=== PATIENT | female | born 1975 | race Caucasian/White ===

== ENCOUNTER 2019-07-12 16:33 | Inpatient (IN) | payer SELFPAY | END 2019-07-15 12:02 | disposition home or self-care (01) | DRG 392 | PROVIDERS: Admitting Provider Internal Medicine; Emergency Provider Family Medicine; Visit Provider Student in an Organized Health Care Education/Training Program | DX: K29.70 Gastritis, unspecified, without bleeding (principal); K21.9 Gastro-esophageal reflux disease without esophagitis; N85.8 Other specified noninflammatory disorders of uterus; I10 Essential (primary) hypertension; D64.9 Anemia, unspecified; K29.80 Duodenitis without bleeding; R00.1 Bradycardia, unspecified; Z87.891 Personal history of nicotine dependence ==

== ENCOUNTER → 2019-08-25 16:45 | Outpatient (BNVA) | payer SELFPAY | PROVIDERS: PCP Nurse Practitioner; Visit Provider Obstetrics & Gynecology Female Pelvic Medicine and Reconstructive Surgery | DX: N93.9 Abnormal uterine and vaginal bleeding, unspecified (principal); Z12.4 Encounter for screening for malignant neoplasm of cervix; D25.9 Leiomyoma of uterus, unspecified; R19.00 Intra-abdominal and pelvic swelling, mass and lump, unspecified site; E66.01 Morbid (severe) obesity due to excess calories; Z72.0 Tobacco use; Z86.2 Personal history of diseases of the blood and blood-forming organs and certain disorders involving the immune mechanism | CPT/HCPCS: 82728; 83540; 83550; 85025; 87491; 87591; 88175 ==

== ENCOUNTER → 2019-09-04 09:01 | Outpatient (BNVA) | payer SELFPAY | PROVIDERS: PCP Nurse Practitioner; Visit Provider Obstetrics & Gynecology Female Pelvic Medicine and Reconstructive Surgery | DX: D25.9 Leiomyoma of uterus, unspecified (principal); N83.8 Other noninflammatory disorders of ovary, fallopian tube and broad ligament | CPT/HCPCS: 76830; 76856; 87491; 87591 ==

== ENCOUNTER → 2019-09-05 09:07 | Outpatient (BNVA) | payer SELFPAY | PROVIDERS: PCP Nurse Practitioner; Visit Provider Obstetrics & Gynecology Female Pelvic Medicine and Reconstructive Surgery | DX: N93.9 Abnormal uterine and vaginal bleeding, unspecified (principal) | CPT/HCPCS: 88305 ==

== ENCOUNTER 2019-09-12 08:27 | Outpatient (CLI) | payer SELFPAY ==
--- NOTE | 2019-09-12 08:45 | MR_ITS ---
WS: [id number] MRI PELVIS NONCONTRAST and contrast TECHNIQUE: Axial T1, axial T2 fat sat, coronal T1, coronal STIR, sagittal T2 fat sat, sagittal T1, an d sagittal T2 fat sat. Postgadolinium imaging with fat saturation technique. CLINICAL INFORMATION: Look for endometriosis COMPARISON: None. FINDINGS: Markedly enlarged fibroid uterus with multiple heterogeneous fibroids. Uterine configuration is antev erted. Uterus measures approximately 9.6 x 11.5 x 16.7 CM. Multiple enhancing submucosal fibroids wit h heterogeneous enhancement. Largest fibroid measures approximately 6.9 x 6.4 x 6.0 cm along the midl ine uterine fundus. Multiple additional eccentric fibroids the second largest measuring 5.3 x 5.1 x 5 .7 CM. Multiple additional smaller peripheral submucosal fibroids approximately 4-5 in number. Endome trial canal appears displaced left to right along the periphery of the large midline uterine fibroid. Soft tissue thickening and fluid along the internal cervical loss and cervical canal. Recommend hyste roscopy if this has not been performed previously. Distal coccyx and sacrum are normal in appearance. No inguinal lymphadenopathy. No pelvic lymphadenop athy. Small amount of free fluid in the cul-de-sac. IMPRESSION: 1. Markedly enlarged heterogeneously enhancing fibroid uterus measuring 9.6 x 11.5 x 16.7 CM 2. Largest fibroid is midline with left to right displacement of the endometrium. Endometrium appear s peripherally displaced along the largest fibroid which measures 6.9 x 6.4 x 6.0 cm. 3. Second largest fibroid measures 5.3 x 5.1 x 5.7 cm along the dome of the uterus. 4. Additional 4-5 smaller peripheral submucosal fibroids. 5. Fluid and mild thickening along the cervix and internal cervical os. Recommend further evaluation with hysteroscopy if this has not been previously performed. 6. Small amount of free fluid in the cul-de-sac.
== END 2019-09-12 08:28 | disposition home or self-care (01) ==
LOC: RADSHAW 08:28
PROVIDERS: PCP Nurse Practitioner; Visit Provider Obstetrics & Gynecology Female Pelvic Medicine and Reconstructive Surgery
DX: D26.1 Other benign neoplasm of corpus uteri (principal); D25.0 Submucous leiomyoma of uterus; N93.9 Abnormal uterine and vaginal bleeding, unspecified
CPT/HCPCS: 72197; A9579

== ENCOUNTER 2019-10-20 17:57 | Emergency (ER) | payer SELFPAY ==
[2019-10-20 18:07] VITALS: BP 230/108; PULSE 41; RESP 17; TEMP 37; O2SAT 98; BMI 40.3
--- NOTE | 2019-10-20 18:16 | ECG_ITS ---
Measurements Intervals [place] Rate: 39 P: 59 WI: 147 QRS: 70 QRSD: 121 T: 50 QT: 520 QTc: 419 SINUS BRADYCARDIA POSSIBLE RIGHT VENTRICULAR CONDUCTION DELAY [RSR (QR) IN V1/V2] No previous ECG available for comparison Electronically Signed On 10-21-2019 20:22:10 CDT by John García M.D. [id number] f
--- NOTE | 2019-10-20 18:16 | XR_ITS ---
WS: [id number] PORTABLE CHEST HISTORY: cp COMPARISON: 07/12/2019 Lungs are clear and well expanded. No pleural effusion or pneumothorax. Cardiac size: Normal. Mediastinum/Aorta: Normal mediastinum. No osseous abnormality seen. XR/XR chest 1V portable [id number] IMPRESSION: Unremarkable portable chest.
--- NOTE | 2019-10-20 18:20 | CTR_ITS ---
PROCEDURE INFORMATION: Exam: CT Abdomen And Pelvis With Contrast Exam date and time: 10/20/2019 6:38 PM Age: 44 years old Clinical indication: Nausea and vomiting; Prior surgery; Surgery date: 6+ months; Surgery type: Gb, tubal; Patient HX: C/O n/v causing cp; Additional info: Abd pain TECHNIQUE: Imaging protocol: Computed tomography of the abdomen and pelvis with intravenous contrast. Total DLP: 1596.8 mGy-cm Radiation optimization: All CT scans at this facility use at least one of these dose optimization techniques: automated exposure control; mA and/or kV adjustment per patient size (includes targeted exams where dose is matched to clinical indication); or iterative reconstruction. Contrast material: OMNI 300; Contrast volume: 95 ml; Contrast route: 18G; COMPARISON: CT abdomen pelvis w con* [id number] 07/12/2019 5:40 PM FINDINGS: Lungs: Lung bases clear. Liver: Unremarkable. No mass. Gallbladder and bile ducts: Status post cholecystectomy. Pancreas: Normal. No ductal dilation. Spleen: Normal. No splenomegaly. Adrenals: Normal. No mass. Kidneys and ureters: Normal. No hydronephrosis. Stomach and bowel: Diverticulosis coli without evidence for diverticulitis. Nonobstructive bowel pattern. No visible adynamic or reactive ileus. Appendix: No evidence of appendicitis. Intraperitoneal space: No visible free fluid in the pelvis. No visible intraperitoneal ascites. Vasculature: Unremarkable. No abdominal aortic aneurysm. Lymph nodes: No evidence for mesenteric lymphadenitis/lymphadenopathy or mesenteritis/panniculitis. Bladder: Unremarkable as visualized. Reproductive: Again note of a markedly enlarged uterus with multiple uterine leiomyomata. Cystic degeneration of a large fibroid maximum cystic dimensions 63 mm in diameter. Bones/joints: Unremarkable. No acute fracture. Soft tissues: Unremarkable. CT/CT abdomen pelvis w con* [id number] IMPRESSION: 1. No visible CT evidence of acute abdominal or pelvic pathologic process. 2. Uterine leiomyomata to include cystic degeneration of a dominant fibroid as discussed in text above. 3. Diverticulosis coli without evidence for diverticulitis. Radiation Dose CTDIVOL = (mGy): DLP = 1596.8 (mGy-cm)
[2019-10-20 18:27] VITALS: RESP 18; O2SAT 99
[2019-10-20] MEDS: promethazine 25 mg/mL SDV 1 mL IM (18:27)
[2019-10-20] MEDS: HYDROmorphone 1 mg/mL INJ 1 mL IVP ×2 (18:27→18:57)
[2019-10-20] MEDS: sodium chloride 0.9% 1,000 ML 999 ML IV (18:31)
[2019-10-20 18:35] LABS: Basophils # 0.1 10^3/uL (0.0-0.1); Basophils % 0.3 %; Eosinophils % 0.1 %; Hematocrit 43.4 % (37.0-47.0); Lymphocytes # 1.6 10^3/uL (0.8-4.8); Lymphocytes % 11.3 %; Mean Corpuscular HGB Conc 32.3 g/dL (30.0-36.0); Mean Corpuscular Hemoglobin 27.9 pg (28.0-34.0); Mean Corpuscular Volume 86.6 fL (81-99); Mean Platelet Volume 9.2 fL (7.4-10.4); Monocytes # 0.4 10^3/uL (0.2-0.9); Monocytes % 3.1 %; Neutrophils # 12.2 10^3/uL (1.8-7.7); Neutrophils % 84.9 %; Nucleated Red Blood Cells % 0 %; Platelet Count 314 10^3/cmm (130-400); Red Blood Count 5.01 10^6/uL (4.1-5.3); Red Cell Distribution Width 15.3 % (12.1-15.1); White Blood Count 14.4 10^3/uL (4.0-10.0)
[2019-10-20 18:56] LABS: Alanine Aminotransferase 23 U/L (0-33); Albumin Level 4.5 g/dL (3.5-5.2); Alkaline Phosphatase 66 IU/L (35-105); Aspartate Amino Transferase 19 U/L (0-32); Blood Urea Nitrogen 16 mg/dL (6-20); Carbon Dioxide 22 mmol/L (22-29); Chloride 104 mmol/L (98-107); Glomerular Filtration Rate 77.9 mL/min (90-130); Glucose 158 mg/dL (65-115); Osmolality Calculated 288 mOsm/kg (285-295); Sodium 139 mmol/L (136-145); Total Bilirubin 0.4 mg/dL (0.15-1.2); Total Protein 8.5 g/dL (6.6-8.7)
[2019-10-20 18:57] VITALS: RESP 18
[2019-10-20 18:58] LABS: Troponin(5th) Baseline 6 ng/mL (0-10)
[2019-10-20] MEDS: iohexol 300 mg/mL 100 mL Btl IV (19:05)
--- NOTE | 2019-10-20 19:11 | W.ED.CHESTPA ---
HPI - Chest Pain General: Chief Complaint: Chest Pain Stated Complaint: cp,n/v Time Seen by Provider: 10/20/19 18:08 Source: patient Mode of arrival: ambulatory Limitations: no limitations History of Present Illness: HPI narrative: 44-year-old female who states she has had severe abdominal pain over the last day. States her pain is severe and diffuse in nature. She rates it a 9 out of 10. She states she is also had some slight chest pain with it and states that the pain seems to radiate to her chest. She denies any shortness of breath. She denies any diarrhea but has had vomiting. Associated symptoms: Reports abdominal pain, nausea and vomiting; Deny dyspnea or fever(s) Review of Systems Const: Denies: fever, chills, body aches or change in appetite Eyes: Denies: blurry vision or eye discomfort ENMT: Denies: throat pain or dental pain Card: Reports: chest pain Resp: Denies: shortness of breath GI: Reports: abdominal pain, nausea and vomiting; Denies: diarrhea : Denies: painful urination Musc: Denies: neck pain or back pain Skin/Breast: Denies: rash Neuro: Denies: headache Psych: Denies: depression Julien/Lymph: Denies: easy bruising All/Imm: Denies: hives PFS ED PFSH: Social History (Updated 09/19/19 @ 08:44 by [place] Ghotra LPN) Smoking and tobacco status: current every day smoker cigarettes Packs smoked per day: 1 Alcohol intake: former Last substance use date: 07/18/19 Marital status: Female Reproductive History: Date of last menstrual period: 07/19/19 Para: 1 Spontaneous abortions: No Physical Exam Const: COMMON NORMALS: no apparent distress, oriented x3 and healthy appearing HENMT: COMMON NORMALS: normocephalic and head/scalp atraumatic HEAD & SCALP: normocephalic and atraumatic Eye: COMMON NORMALS: PERRL and EOMs intact bilaterally PUPIL: Yes PERRL Neck/C-Spine: COMMON NORMALS: full ROM and supple Chest: COMMONS NORMALS: inspection of chest normal and palpation of chest normal Resp: COMMON NORMALS: normal respiratory effort, no retractions, no use of accessory muscles and clear to auscultation bilaterally AUSCULTATION: clear to auscultation bilaterally Cardio: COMMON NORMALS: regular rate, regular rhythm and no murmurs RATE: regular rate RHYTHM: regular rhythm GI: COMMON NORMALS: normal to inspection, nondistended, normoactive bowel sounds, soft to palpation and no masses PALPATION: Yes soft and Yes tender Details: LUQ and RUQ Extremity: COMMON NORMALS: normal to inspection and full ROM Neuro: COMMON NORMALS: oriented x3, moves all extremities and no focal motor deficits Psych: COMMON NORMALS: mental status grossly normal, thought process normal and cooperative THOUGHT PROCESS: normal thought process Skin: COMMON NORMALS: no rashes or lesions noted and no wounds GENERAL SKIN EXAM: no rashes or lesions noted Course Vital Signs: Vital signs: Vital Signs Temperature 98.6 F 10/20/19 18:07 Pulse Rate 48 L 10/20/19 21:06 Respiratory Rate 16 10/20/19 21:06 Blood Pressure 168/84 10/20/19 21:06 Pulse Oximetry 98 10/20/19 21:06 MDM - Chest Pain MDM Narrative: Medical decision making narrative: Patient presents here with abdominal pain likely from her fibroids. Patient's chest pain is likely related to her abdominal pain. She has no signs of cardiac cause for her pain. Patient's CT showed no acute findings. Abdominal pain is improved and exam at discharge is benign. I feel patient is stable for discharge and will prescribe pain meds for home. Patient is return if worsening. She understands and agrees the plan. Lab Data: Labs: Lab Results 10/20/19 10/20/19 10/20/19 Range/Units 18:30 18:30 18:30 WBC 14.4 H (4.0-10.0) 10^3/ uL RBC 5.01 (4.1-5.3) 10^6/u L Hgb 14.0 (11.5-15.3) g/dL Hct 43.4 (37.0-47.0) % MCV 86.6 (81-99) fL MCH 27.9 L (28.0-34.0) pg MCHC 32.3 (30.0-36.0) g/dL RDW 15.3 H (12.1-15.1) % Plt Count 314 (130-400) 10^3/c mm MPV 9.2 (7.4-10.4) fL Neut % (Auto) 84.9 % Lymph % (Auto) 11.3 % Yell % (Auto) 3.1 % Eos % (Auto) 0.1 % Baso % (Auto) 0.3 % Neut # (Auto) 12.2 H (1.8-7.7) 10^3/u L Lymph # (Auto) 1.6 (0.8-4.8) 10^3/u L Yell # (Auto) 0.4 (0.2-0.9) 10^3/u L Eos # (Auto) 0.0 (0.0-0.8) 10^3/u L Baso # (Auto) 0.1 (0.0-0.1) 10^3/u L Nucleated RBC % (a uto) 0 % Nucleated RBCs # 0.0 /100WBC Sodium 139 (136-145) mmol/L Potassium 4.0 (3.5-5.1) mmol/L Chloride 104 (98-107) mmol/L Carbon Dioxide 22 (22-29) mmol/L Anion Gap 17.0 (5-19) BUN 16 (6-20) mg/dL Creatinine 0.8 (0.5-0.9) mg/dL GFR Calculation 77.9 L (90-130) mL/min Glucose 158 H (65-115) mg/dL Calculated Osmolal ity 288 (285-295) mOsm/k g Calcium 10.0 (8.5-10.5) mg/dL Total Bilirubin 0.4 (0.15-1.2) mg/dL AST 19 (0-32) U/L ALT 23 (0-33) U/L Alkaline Phosphata se 66 (35-105) IU/L Troponin T Baselin e 6 (0-10) ng/mL Total Protein 8.5 (6.6-8.7) g/dL Albumin 4.5 (3.5-5.2) g/dL Globulin 4.0 (1.3-4.6) g/dL Lipase 19 (13-60) U/L Imaging Data^: CT Abd/Pel: Radiologist's impression: [facility] [address] [address] [address] Scan Report Signed Patient: China Batres Unit #: [id number] : [id number] Age/Sex: 44 / F ADM Date: 10/20/19 Loc: ER Room/Bed: Attending Dr: Ordering Provider/Ordering MD: Melvin Montoya MD Date of Service: 10/20/19 Procedure(s): CT abdomen pelvis w con* [id number] Accession Number(s): [id number] Report Number: [id number] PROCEDURE INFORMATION: Exam: CT Abdomen And Pelvis With Contrast Exam date and time: 10/20/2019 6:38 PM Age: 44 years old Clinical indication: Nausea and vomiting; Prior surgery; Surgery date: 6+ months; Surgery type: Gb, tubal; Patient HX: C/O n/v causing cp; Additional info: Abd pain TECHNIQUE: Imaging protocol: Computed tomography of the abdomen and pelvis with intravenous contrast. Total DLP: 1596.8 mGy-cm Radiation optimization: All CT scans at this facility use at least one of these dose optimization techniques: automated exposure control; mA and/or kV adjustment per patient size (includes targeted exams where dose is matched to clinical indication); or iterative reconstruction. Contrast material: OMNI 300; Contrast volume: 95 ml; Contrast route: 18G; COMPARISON: CT abdomen pelvis w con* [id number] 07/12/2019 5:40 PM FINDINGS: Lungs: Lung bases clear. Liver: Unremarkable. No mass. Gallbladder and bile ducts: Status post cholecystectomy. Pancreas: Normal. No ductal dilation. Spleen: Normal. No splenomegaly. Adrenals: Normal. No mass. Kidneys and ureters: Normal. No hydronephrosis. Stomach and bowel: Diverticulosis coli without evidence for diverticulitis. Nonobstructive bowel pattern. No visible adynamic or reactive ileus. Appendix: No evidence of appendicitis. Intraperitoneal space: No visible free fluid in the pelvis. No visible intraperitoneal ascites. Vasculature: Unremarkable. No abdominal aortic aneurysm. Lymph nodes: No evidence for mesenteric lymphadenitis/lymphadenopathy or mesenteritis/panniculitis. Bladder: Unremarkable as visualized. Reproductive: Again note of a markedly enlarged uterus with multiple uterine leiomyomata. Cystic degeneration of a large fibroid maximum cystic dimensions 63 mm in diameter. Bones/joints: Unremarkable. No acute fracture. Soft tissues: Unremarkable. CT/CT abdomen pelvis w con* [id number] IMPRESSION: 1. No visible CT evidence of acute abdominal or pelvic pathologic process. 2. Uterine leiomyomata to include cystic degeneration of a dominant fibroid as discussed in text above. 3. Diverticulosis coli without evidence for diverticulitis. Radiation Dose CTDIVOL = (mGy): DLP = 1596.8 (mGy-cm) Dictated By: Chino Tim Signed By: Chino Tim Signed Date/Time: 10/20/191923 DD/ 21 EKG Data^: EKG 1: Attestation: I personally reviewed and interpreted this EKG as follows: EKG interpretation date: 10/20/19 EKG interpretation time: 18:16 Interpretation: sinus paco hr [address] or t wave abnormalities Discharge Plan Discharge Patient Disposition: Home, Self-Care Clinical Impression: Uterine fibroid Qualifiers: Uterine leiomyoma location: unspecified location Qualified Code(s): D25.9 - Leiomyoma of uterus, unspecified Abdominal pain Qualifiers: Abdominal location: unspecified location Qualified Code(s): R10.9 - Unspecified abdominal pain Condition: Stable Prescriptions: New Percocet 7.5-325 mg tablet 1 tab PO Q8H PRN (Reason: pain) Qty: 14 RF: 0 promethazine 25 mg tablet 25 mg PO TID PRN (Reason: nausea) Qty: 90 RF: 0 No Action Protonix [address] for susp in packet 40 mg PO DAILY RF: 0 hydrocodone-acetaminophen 5-325 mg tablet 1 tab PO Q4H PRNRF: 0 promethazine 25 mg tablet 25 mg PO Q6H PRNRF: 0 multivitamin [Daily Multi-Vitamin] Tablet 1 tab PO QAM RF: 0 ondansetron HCl [Zofran] 4 mg tablet 4 mg PO Q8H PRNRF: 0 atenolol 25 mg tablet 25 mg PO .three times weekly RF: 0 medroxyprogesterone [Depo-Provera] 150 mg/mL suspension 150 mg IM ONCE Qty: 1 RF: 0 hydroxyzine HCl 50 mg tablet 100 mg PO .bedtime Qty: 90 RF: 0 cetirizine 10 mg capsule 10 mg PO DAILY RF: 0 Discharge Orders: Discharge Order (Routine); Ordered 10/20/19 Ordered By: Melvin Montoya Referrals: Aretha Navarro FNP [Primary Care Provider] - Discharge Diet: Advance as tolerated Discharge Activity: Resume usual activity Patient Instructions: Abdominal Pain (ED) Discharge Date/Time: 10/20/19 21:08 Coding Level of Care Code ED 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
[2019-10-20 19:18] LABS: Lipase 19 U/L (13-60)
[2019-10-20 19:31] VITALS: BP 182/85; PULSE 47; RESP 16; O2SAT 97
[2019-10-20] MEDS: diphenhydrAMINE 50 mg/mL SDV 1mL IVP (20:20)
[2019-10-20] MEDS: metoclopramide 5 mg/mL SDV 2 mL 10 MG IVP (20:20)
[2019-10-20] MEDS: lidocaine 2% viscous 15 ML, aluminum-mag hydrox-simethicon 30 ML, sucralfate oral liq 1 GM PO (20:32)
[2019-10-20 21:06] VITALS: BP 168/84; PULSE 48; RESP 16; O2SAT 98
== END 2019-10-20 21:08 | disposition home or self-care (01) ==
PROVIDERS: Emergency Provider Emergency Medicine; PCP Nurse Practitioner
DX: D25.9 Leiomyoma of uterus, unspecified (principal); R10.9 Unspecified abdominal pain; E66.01 Morbid (severe) obesity due to excess calories; Z68.41 Body mass index [BMI] 40.0-44.9, adult; I10 Essential (primary) hypertension; K21.9 Gastro-esophageal reflux disease without esophagitis; N12 Tubulo-interstitial nephritis, not specified as acute or chronic; N17.9 Acute kidney failure, unspecified; R11.2 Nausea with vomiting, unspecified; F17.210 Nicotine dependence, cigarettes, uncomplicated
CPT/HCPCS: 12345; 71045; 74177; 80053; 83690; 84484; 85025; 93005; 96360; 96361; 96372; 96374; 96375; 96376; 99283; 99284; J1170; J1200; J2550; J2765; J7030; Q9967

== ENCOUNTER 2019-10-24 15:22 | Inpatient (IN) | payer SELFPAY ==
[2019-10-24 15:23] VITALS: BP 162/64; PULSE 49; RESP 18; TEMP 36.9; O2SAT 98; BMI 40.3
--- NOTE | 2019-10-24 15:32 | ECG_ITS ---
Measurements Intervals [place] Rate: 50 P: 54 MI: 146 QRS: 62 QRSD: 116 T: 47 QT: 497 QTc: 455 SINUS BRADYCARDIA WITH SINUS ARRHYTHMIA INCOMPLETE RIGHT BUNDLE BRANCH BLOCK [90+ ms QRS DURATION, TERMINAL R IN V1/V2, 40+ ms S IN I/aVL/V4/V5/V6] PROLONGED QT INTERVAL INTERPRETATION BASED ON A DEFAULT AGE OF 40 YEARS Compared to ECG 10/20/2019 18:16:35 Incomplete right bundle-branch block now present Prolonged QT interval now present Electronically Signed On 10-25-2019 18:00:41 CDT by Boris Perez M.D. [id number] shin
--- NOTE | 2019-10-24 15:33 | XR_ITS ---
WS: [id number] CHEST XRAY TECHNIQUE: Portable chest. CLINICAL INFORMATION: dyspnea/cough COMPARISON: October 20, 2019 FINDINGS: Heart: Normal cardiac silhouette. Lungs: Lungs are clear. No consolidation or pleural effusion. Bones: Normal visualized bony structures. XR/XR chest 1V portable [id number] IMPRESSION: Normal chest
--- NOTE | 2019-10-24 15:35 | ED_ITS ---
HPI - Chest Pain General: Chief Complaint: Chest Pain Stated Complaint: CHEST PAIN Time Seen by Provider: 10/24/19 15:26 History of Present Illness: HPI narrative: 44 yo female presents with c/o of chest pain initially as her chief complaint. When I went in to see the patient she complains of kind of an epigastric pain radiating into the right upper quadrant and around to her back. She has had this in the past she is vomited quite a bit she has a vomit bag with about a liter of green bilious type fluid in it no evidence of hematemesis. She has had this intermittently. She does have a history of gastro esophageal reflux she also has a uterine leiomyoma. Associated symptoms: Reports abdominal pain, nausea and vomiting; Deny dyspnea, fever(s), palpitations or syncope Review of Systems Const: Denies: fever, chills, body aches, fatigue, malaise or night sweats Eyes: Denies: change in vision or blurry vision ENMT: Denies: throat pain, oral sores/lesions, dental pain, nasal discharge or nasal congestion Card: Reports: chest pain and irregular heart rhythm; Denies: palpitations, edema, syncope, shortness of breath on exertion, shortness of breath when lying down or leg pain with exertion Resp: Denies: shortness of breath, productive cough, non-productive cough or wheezing GI: Reports: abdominal pain, nausea and vomiting; Denies: vomiting blood, coffee grounds in vomit, difficulty swallowing, heartburn/indigestion, diarrhea, constipation, cramping, blood in stool or black tarry stool : Denies: flank pain, painful urination, urinary frequency, urinary urgency, urinary incontinence or blood in urine Musc: Denies: neck pain, back pain, extremity pain, extremity swelling, joint pain or joint swelling Skin/Breast: Denies: rash, itching or redness Neuro: Denies: headache, numbness in extremities, weakness in extremities, changes in sensation, lack of coordination, difficulty walking, frequent falls, dizziness, vertigo or confusion Psych: Denies: anxiety, depression, loss of interest, visual hallucinations, auditory hallucinations, suicidal ideation or homicidal ideation Endo: Denies: excessive urination, excessive thirst, tired all the time or cold intolerance Julien/Lymph: Denies: easy bruising, easy bleeding, petechiae, enlarged lymph nodes or tender lymph nodes PFSH ED PFSH: Medical History (Updated 10/24/19 @ 18:57 by Tejinder Lozano MD) Endometriosis Surgical History (Updated 10/24/19 @ 18:01 by Stephan Telles DO) S/P cholecystectomy Tubal ligation status Social History (Updated 09/19/19 @ 08:44 by [place] Ghotra LPN) Smoking and tobacco status: current every day smoker cigarettes Packs smoked per day: 1 Alcohol intake: former Last substance use date: 07/18/19 Marital status: Female Reproductive History: Date of last menstrual period: 07/19/19 Para: 1 Spontaneous abortions: No Physical Exam 2 Const: COMMON NORMALS: no apparent distress GENERAL APPEARANCE: cooperative and comfortable ORIENTATION/CONSCIOUSNESS: Yes awake, Yes oriented to person, Yes oriented to place and Yes oriented to time HENMT: COMMON NORMALS: normocephalic, head/scalp atraumatic, hearing grossly normal bilaterally, external ears normal, EAC's normal, TM's normal bilaterally, nasal mucous membranes and turbinates normal, moist oral mucous membranes and oropharynx normal HEAD & SCALP: normocephalic and atraumatic NOSE: nasal mucous membranes and turbinates normal EXTERNAL EAR: Yes external ears normal EXTERNAL AUDITORY CANAL: EAC's normal TYMPANIC MEMBRANE: TM's normal bilaterally Eye: COMMON NORMALS: PERRL, EOMs intact bilaterally, conjunctivae normal and no scleral icterus CONJUNCTIVA: Yes conjunctivae normal PUPIL: Yes PERRL Neck/C-Spine: COMMON NORMALS: full ROM, no lymphadenopathy, supple and no JVD Lymph: LYMPHATIC: no lymphadenopathy noted and no lymphedema noted Resp: COMMON NORMALS: normal respiratory effort, no retractions, no use of accessory muscles and clear to auscultation bilaterally AUSCULTATION: clear to auscultation bilaterally Cardio: COMMON NORMALS: no JVD, regular rate, regular rhythm and no murmurs RATE: regular rate RHYTHM: regular rhythm GI: COMMON NORMALS: soft to palpation and no hepatosplenomegaly AUSCULTATION: Yes normoactive bowel sounds PALPATION: Yes soft, No tender, No guarding and Yes no hepatosplenomegaly Extremity: COMMON NORMALS: normal to inspection, normal capillary refill, no clubbing, cyanosis or edema, no calf tenderness and no pedal edema Neuro: SENSORIUM/ORIENTATION: Yes oriented to person, Yes oriented to place and Yes oriented to time Skin: COMMON NORMALS: no rashes or lesions noted GENERAL SKIN EXAM: no rashes or lesions noted Course Vital Signs: Vital signs: Vital Signs Temperature 98.0 F 10/26/19 09:45 Pulse Rate 45 L 10/26/19 09:45 Respiratory Rate 22 H 10/26/19 09:45 Blood Pressure 111/62 10/26/19 09:45 Pulse Oximetry 96 10/26/19 09:45 MDM - Chest Pain MDM Narrative: Medical decision making narrative: She has previously had a cholecystectomy she has recurrent nausea and vomiting when she came in she vomited a little almost a liter of fluid into her back she is not vomited since she got here but is still complaining of significant abdominal pain CT is negative she does have an elevated white count I cannot find anything else on her exam. We will put her in observation give her IV fluids pain medications reassess in the morning. Lab Data: Labs: Lab Results 10/24/19 10/24/19 10/24/19 Range/Units 15:50 15:50 15:50 WBC 15.2 H (4.0-10.0) 10^3/ uL RBC 5.43 H (4.1-5.3) 10^6/u L Hgb 15.3 (11.5-15.3) g/dL Hct 46.7 (37.0-47.0) % MCV 86.0 (81-99) fL MCH 28.2 (28.0-34.0) pg MCHC 32.8 (30.0-36.0) g/dL RDW 14.3 (12.1-15.1) % Plt Count 368 (130-400) 10^3/c mm MPV 9.5 (7.4-10.4) fL Neut % (Auto) 79.1 % Lymph % (Auto) 14.3 % [place] % (Auto) 6.0 % Eos % (Auto) 0.0 % Baso % (Auto) 0.3 % Neut # (Auto) 12.1 H (1.8-7.7) 10^3/u L Lymph # (Auto) 2.2 (0.8-4.8) 10^3/u L [place] # (Auto) 0.9 (0.2-0.9) 10^3/u L Eos # (Auto) 0.0 (0.0-0.8) 10^3/u L Baso # (Auto) 0.0 (0.0-0.1) 10^3/u L Nucleated RBC % (a uto) 0 % Nucleated RBCs # 0.0 /100WBC Sodium 137 (136-145) mmol/L Potassium 3.1 L (3.5-5.1) mmol/L Chloride 92 L (98-107) mmol/L Carbon Dioxide 25 (22-29) mmol/L Anion Gap 23.1 H (5-19) BUN 20 (6-20) mg/dL Creatinine 1.3 H (0.5-0.9) mg/dL GFR Calculation 44.5 L (90-130) mL/min Glucose 136 H (65-115) mg/dL Estimat Average Gl ucose Hemoglobin A1c (4.0-6.0) % Calculated Osmolal ity 283 L (285-295) mOsm/k g Calcium 10.0 (8.5-10.5) mg/dL Phosphorus (2.5-4.5) mg/dL Magnesium (1.7-2.3) mg/dL Total Bilirubin 0.7 (0.15-1.2) mg/dL AST 26 (0-32) U/L ALT 31 (0-33) U/L Alkaline Phosphata se 61 (35-105) IU/L Troponin I 6 Hour (0-10) ng/mL Troponin I Hi Sens Del (0-12) ng/L Troponin T Baselin e 8 (0-10) ng/mL Troponin T 120 Min mechoopda (0-10) ng/mL Delta Troponin T (0-10) ABS# C-Reactive Protein (0.0-4.9) mg/L Total Protein 8.5 (6.6-8.7) g/dL Albumin 4.4 (3.5-5.2) g/dL Globulin 4.1 (1.3-4.6) g/dL Lipase (13-60) U/L Procalcitonin (0-0.5) ng/mL TSH (0.27-4.20) uIU/ mL Urine Color (Yellow) Urine Appearance (CLEAR) Urine pH (5-7) Ur Specific Gravit y (1.005-1.030) Urine Protein (Negative) Urine Glucose (UA) (Normal) Urine Ketones (Negative) Urine Blood (Negative) Urine Nitrate (Negative) Urine Bilirubin (NEGATIVE) Urine Urobilinogen (Negative) mg/dL Ur Leukocyte Brittany ase (Negative) 10/24/19 10/24/19 10/24/19 Range/Units 15:50 18:02 19:35 WBC (4.0-10.0) 10^3/ uL RBC (4.1-5.3) 10^6/u L Hgb (11.5-15.3) g/dL Hct (37.0-47.0) % MCV (81-99) fL MCH (28.0-34.0) pg MCHC (30.0-36.0) g/dL RDW (12.1-15.1) % Plt Count (130-400) 10^3/c mm MPV (7.4-10.4) fL Neut % (Auto) % Lymph % (Auto) % [place]house % (Auto) % Eos % (Auto) % Baso % (Auto) % Neut # (Auto) (1.8-7.7) 10^3/u L Lymph # (Auto) (0.8-4.8) 10^3/u L [place] # (Auto) (0.2-0.9) 10^3/u L Eos # (Auto) (0.0-0.8) 10^3/u L Baso # (Auto) (0.0-0.1) 10^3/u L Nucleated RBC % (a uto) % Nucleated RBCs # /100WBC Sodium (136-145) mmol/L Potassium (3.5-5.1) mmol/L Chloride (98-107) mmol/L Carbon Dioxide (22-29) mmol/L Anion Gap (5-19) BUN (6-20) mg/dL Creatinine (0.5-0.9) mg/dL GFR Calculation (90-130) mL/min Glucose (65-115) mg/dL Estimat Average Gl ucose Hemoglobin A1c (4.0-6.0) % Calculated Osmolal ity (285-295) mOsm/k g Calcium (8.5-10.5) mg/dL Phosphorus (2.5-4.5) mg/dL Magnesium (1.7-2.3) mg/dL Total Bilirubin (0.15-1.2) mg/dL AST (0-32) U/L ALT (0-33) U/L Alkaline Phosphata se (35-105) IU/L Troponin I 6 Hour (0-10) ng/mL Troponin I Hi Sens Del (0-12) ng/L Troponin T Baselin e (0-10) ng/mL Troponin T 120 Min mechoopda 6.35 (0-10) ng/mL Delta Troponin T -1.65 L (0-10) ABS# C-Reactive Protein 5.5 H (0.0-4.9) mg/L Total Protein (6.6-8.7) g/dL Albumin (3.5-5.2) g/dL Globulin (1.3-4.6) g/dL Lipase 24 (13-60) U/L Procalcitonin 0.04 (0-0.5) ng/mL TSH 2.37 (0.27-4.20) uIU/ mL Urine Color (Yellow) Urine Appearance (CLEAR) Urine pH (5-7) Ur Specific Gravit y (1.005-1.030) Urine Protein (Negative) Urine Glucose (UA) (Normal) Urine Ketones (Negative) Urine Blood (Negative) Urine Nitrate (Negative) Urine Bilirubin (NEGATIVE) Urine Urobilinogen (Negative) mg/dL Ur Leukocyte Brittany ase (Negative) 10/24/19 10/24/19 10/25/19 Range/Units 20:55 21:50 04:19 WBC 14.3 H (4.0-10.0) 10^3/ uL RBC 5.25 (4.1-5.3) 10^6/u L Hgb 14.4 (11.5-15.3) g/dL Hct 46.0 (37.0-47.0) % MCV 87.6 (81-99) fL MCH 27.4 L (28.0-34.0) pg MCHC 31.3 (30.0-36.0) g/dL RDW 14.3 (12.1-15.1) % Plt Count 326 (130-400) 10^3/c mm MPV 9.4 (7.4-10.4) fL Neut % (Auto) 48.3 % Lymph % (Auto) 39.7 % [place]house % (Auto) 10.4 % Eos % (Auto) 0.6 % Baso % (Auto) 0.6 % Neut # (Auto) 6.9 (1.8-7.7) 10^3/u L Lymph # (Auto) 5.7 H (0.8-4.8) 10^3/u L [place] # (Auto) 1.5 H (0.2-0.9) 10^3/u L Eos # (Auto) 0.1 (0.0-0.8) 10^3/u L Baso # (Auto) 0.1 (0.0-0.1) 10^3/u L Nucleated RBC % (a uto) 0 % Nucleated RBCs # 0.0 /100WBC Sodium (136-145) mmol/L Potassium (3.5-5.1) mmol/L Chloride (98-107) mmol/L Carbon Dioxide (22-29) mmol/L Anion Gap (5-19) BUN (6-20) mg/dL Creatinine (0.5-0.9) mg/dL GFR Calculation (90-130) mL/min Glucose (65-115) mg/dL Estimat Average Gl ucose Hemoglobin A1c (4.0-6.0) % Calculated Osmolal ity (285-295) mOsm/k g Calcium (8.5-10.5) mg/dL Phosphorus (2.5-4.5) mg/dL Magnesium (1.7-2.3) mg/dL Total Bilirubin (0.15-1.2) mg/dL AST (0-32) U/L ALT (0-33) U/L Alkaline Phosphata se (35-105) IU/L Troponin I 6 Hour 7.47 (0-10) ng/mL Troponin I Hi Sens Del -0.53 L (0-12) ng/L Troponin T Baselin e (0-10) ng/mL Troponin T 120 Min mechoopda (0-10) ng/mL Delta Troponin T (0-10) ABS# C-Reactive Protein (0.0-4.9) mg/L Total Protein (6.6-8.7) g/dL Albumin (3.5-5.2) g/dL Globulin (1.3-4.6) g/dL Lipase (13-60) U/L Procalcitonin (0-0.5) ng/mL TSH (0.27-4.20) uIU/ mL Urine Color Yellow (Yellow) Urine Appearance Clear (CLEAR) Urine pH 7 (5-7) Ur Specific Gravit y 1.005 (1.005-1.030) Urine Protein Neg (Negative) Urine Glucose (UA) Norm (Normal) Urine Ketones Negative (Negative) Urine Blood Neg (Negative) Urine Nitrate Negative (Negative) Urine Bilirubin Neg (NEGATIVE) Urine Urobilinogen Norm (Negative) mg/dL Ur Leukocyte Brittany ase Negative (Negative) 10/25/19 10/25/19 10/25/19 Range/Units 04:19 04:19 04:19 WBC (4.0-10.0) 10^3/ uL RBC (4.1-5.3) 10^6/u L Hgb (11.5-15.3) g/dL Hct (37.0-47.0) % MCV (81-99) fL MCH (28.0-34.0) pg MCHC (30.0-36.0) g/dL RDW (12.1-15.1) % Plt Count (130-400) 10^3/c mm MPV (7.4-10.4) fL Neut % (Auto) % Lymph % (Auto) % [place]house % (Auto) % Eos % (Auto) % Baso % (Auto) % Neut # (Auto) (1.8-7.7) 10^3/u L Lymph # (Auto) (0.8-4.8) 10^3/u L [place] # (Auto) (0.2-0.9) 10^3/u L Eos # (Auto) (0.0-0.8) 10^3/u L Baso # (Auto) (0.0-0.1) 10^3/u L Nucleated RBC % (a uto) % Nucleated RBCs # /100WBC Sodium 140 (136-145) mmol/L Potassium 3.2 L (3.5-5.1) mmol/L Chloride 97 L (98-107) mmol/L Carbon Dioxide 29 (22-29) mmol/L Anion Gap 17.2 (5-19) BUN 15 (6-20) mg/dL Creatinine 1.3 H (0.5-0.9) mg/dL GFR Calculation 44.5 L (90-130) mL/min Glucose 95 (65-115) mg/dL Estimat Average Gl ucose 111 Hemoglobin A1c 5.5 (4.0-6.0) % Calculated Osmolal ity 286 (285-295) mOsm/k g Calcium 9.6 (8.5-10.5) mg/dL Phosphorus 3.7 (2.5-4.5) mg/dL Magnesium 2.2 (1.7-2.3) mg/dL Total Bilirubin 0.4 (0.15-1.2) mg/dL AST 23 (0-32) U/L ALT 27 (0-33) U/L Alkaline Phosphata se 56 (35-105) IU/L Troponin I 6 Hour (0-10) ng/mL Troponin I Hi Sens Del (0-12) ng/L Troponin T Baselin e (0-10) ng/mL Troponin T 120 Min me[place]opda (0-10) ng/mL Delta Troponin T (0-10) ABS# C-Reactive Protein (0.0-4.9) mg/L Total Protein 8.1 (6.6-8.7) g/dL Albumin 4.1 (3.5-5.2) g/dL Globulin 4.0 (1.3-4.6) g/dL Lipase (13-60) U/L Procalcitonin (0-0.5) ng/mL TSH (0.27-4.20) uIU/ mL Urine Color (Yellow) Urine Appearance (CLEAR) Urine pH (5-7) Ur Specific Gravit y (1.005-1.030) Urine Protein (Negative) Urine Glucose (UA) (Normal) Urine Ketones (Negative) Urine Blood (Negative) Urine Nitrate (Negative) Urine Bilirubin (NEGATIVE) Urine Urobilinogen (Negative) mg/dL Ur Leukocyte Brittany ase (Negative) Discharge Plan Discharge Patient Disposition: Placed in Observation Admit Provider: Tejinder Lozano Clinical Impression: Nausea & vomiting, GERD (gastroesophageal reflux disease), Hypertension, Uterine fibroid, Abdominal pain Condition: Stable Referrals: Pepper Lopez PA [Primary Care Provider] - Discharge Diet: GI Soft Discharge Activity: Resume usual activity Patient Instructions: Sulfamethoxazole/Trimethoprim (By mouth), Hydrocodone/Acetaminophen (By mouth), Amlodipine (By mouth), Uterine Fibroids (DC), How to Stop Smoking (DC), Acute Kidney Injury (DC), Acute Pyelonephritis (DC), Acute Nausea and Vomiting (DC), Acute Abdominal Pain (DC), Hypertension (DC) Additional Instructions: -Please use [place] liquid sparingly -Please do not use Percocet and or other narcotic medications with prescribed medications -Please use promethazine rectal suppository take as needed -Follow-up with primary care in 1 week -Follow-up with [facility] DES[employer] CONSULTANT in 1 month Discharge Date/Time: 10/24/19 19:40 Coding Level of Care Code 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
--- NOTE | 2019-10-24 16:11 | CTR_ITS ---
PROCEDURE INFORMATION: Exam: CT Abdomen And Pelvis With Contrast Exam date and time: 10/24/2019 4:16 PM Age: 44 years old Clinical indication: Abdominal pain; Prior surgery; Surgery type: Gb. Tubal. ; Patient HX: C/O RT sided abd pain with nausea TECHNIQUE: Imaging protocol: Computed tomography of the abdomen and pelvis with intravenous contrast. Total DLP: 1691.85 mGy-cm Radiation optimization: All CT scans at this facility use at least one of these dose optimization techniques: automated exposure control; mA and/or kV adjustment per patient size (includes targeted exams where dose is matched to clinical indication); or iterative reconstruction. Contrast material: OMNI 300; Contrast volume: 95 ml; Contrast route: 20G; COMPARISON: CT abdomen pelvis w con* [id number] 10/20/2019 7:02 PM FINDINGS: Lungs: Discoid atelectasis in the left lower lobe. Mediastinum: Small hiatal hernia. Liver: Normal. No mass. Gallbladder and bile ducts: Cholecystectomy. The bile ducts are normal. Pancreas: Normal. No ductal dilation. Spleen: Normal. No splenomegaly. Adrenals: Normal. No mass. Kidneys and ureters: There are subtle striations in the parenchyma of both kidneys (striated nephrogram). No calculus or hydronephrosis. Stomach and bowel: Mild diverticulosis of the distal colon. No diverticulitis. The small bowel is unremarkable. Appendix: The appendix is normal. Intraperitoneal space: Unremarkable. No free air. No significant fluid collection. Vasculature: Unremarkable. No abdominal aortic aneurysm. Lymph nodes: Unremarkable. No enlarged lymph nodes. Bladder: Unremarkable as visualized. Reproductive: Multiple inhomogenous uterine masses are not significantly changed, measuring up to 6.8 cm. The ovaries are normal. Bones/joints: Unremarkable. No acute fracture. Soft tissues: Unremarkable. CT/CT abdomen pelvis w con* [id number] IMPRESSION: 1. Subtle striated nephrograms. This could indicate mild pyelonephritis. Clinical correlation recommended. 2. Multiple stable uterine fibroids. 3. Mild diverticulosis of the distal colon. Radiation Dose CTDIVOL = (mGy): DLP = 1691.85 (mGy-cm)
[2019-10-24 16:15] LABS: Basophils % 0.3 %; Hematocrit 46.7 % (37.0-47.0); Hemoglobin 15.3 g/dL (11.5-15.3); Lymphocytes # 2.2 10^3/uL (0.8-4.8); Lymphocytes % 14.3 %; Mean Corpuscular HGB Conc 32.8 g/dL (30.0-36.0); Mean Corpuscular Hemoglobin 28.2 pg (28.0-34.0); Mean Platelet Volume 9.5 fL (7.4-10.4); Monocytes # 0.9 10^3/uL (0.2-0.9); Neutrophils # 12.1 10^3/uL (1.8-7.7); Neutrophils % 79.1 %; Nucleated Red Blood Cells % 0 %; Platelet Count 368 10^3/cmm (130-400); Red Blood Count 5.43 10^6/uL (4.1-5.3); Red Cell Distribution Width 14.3 % (12.1-15.1); White Blood Count 15.2 10^3/uL (4.0-10.0)
[2019-10-24] MEDS: LORazepam 2 mg/mL INJ 1 mL 1 MG IVP ×2 (16:33→17:55)
[2019-10-24] MEDS: ondansetron 2 mg/ML SDV 2 mL 4 MG IVP (16:33)
[2019-10-24] MEDS: sodium chloride 0.9% 1,000 ML 999 ML IV (16:34)
[2019-10-24 16:35] LABS: Lipase 24 U/L (13-60)
[2019-10-24 16:55] LABS: Troponin(5th) Baseline 8 ng/mL (0-10)
[2019-10-24] MEDS: iohexol 300 mg/mL 100 mL Btl IV (17:04)
[2019-10-24 17:05] LABS: Alanine Aminotransferase 31 U/L (0-33); Albumin Level 4.4 g/dL (3.5-5.2); Alkaline Phosphatase 61 IU/L (35-105); Aspartate Amino Transferase 26 U/L (0-32); Blood Urea Nitrogen 20 mg/dL (6-20); Carbon Dioxide 25 mmol/L (22-29); Globulin 4.1 g/dL (1.3-4.6); Glomerular Filtration Rate 44.5 mL/min (90-130); Glucose 136 mg/dL (65-115); Total Bilirubin 0.7 mg/dL (0.15-1.2); Total Protein 8.5 g/dL (6.6-8.7)
--- NOTE | 2019-10-24 17:32 | ECG_ITS ---
Measurements Intervals [place] Rate: 47 P: 68 MI: 156 QRS: 73 QRSD: 118 T: 61 QT: 531 QTc: 473 SINUS BRADYCARDIA MODERATE INTRAVENTRICULAR CONDUCTION DELAY [110+ ms QRS DURATION] PROLONGED QT INTERVAL Compared to ECG 10/20/2019 18:16:35 Intraventricular conduction delay now present Prolonged QT interval now present Electronically Signed On 10-25-2019 18:09:08 CDT by Boris Perez M.D. [email or web address]
--- NOTE | 2019-10-24 17:52 | PC.NURSE ---
Patient heard yelling from another room making loud animal noises. Patient has call light in reach but refuses to use it. EMD at bedside to discuss previously refused medications.
[2019-10-24] MEDS: morphine 4 mg/mL SDV 1 mL IVP (17:54)
--- NOTE | 2019-10-24 18:44 | PM.HP ---
Providers/Chief Complaint Primary Care Provider: TAJ Franks Chief Complaint: CHEST PAIN History of Present Illness China Batres is a 44 year old female -0-2-1 with a past medical history of GERD, gastritis, duodenitis, sinus bradycardia, anemia, history of abnormal uterine bleeding with uterine fibroids (leiomyoma) who presents to the emergency room due to complaints of nausea, vomiting, abdominal pain, flank pain, dysuria. Patient was admitted multiple times in June 2019 with similar symptoms of nausea, vomiting had an EGD by Dr. Elias which showed gastritis and duodenitis, and bile reflux for which she was placed on Carafate and Protonix. She was also found to have a uterine mass, which subsequently was found to be a uterine leiomyoma by hysteroscopy with EMB, Depakote currently on Lupron therapy with plans on surgical intervention in the near future through TEACHER EDUCATION DIRECTOR. Patient states that for the past week she has had nausea, vomiting, diffuse abdominal pain, left flank pain, dysuria. Patient states that she has not been able to keep down liquids, has had bilious vomiting, diffuse abdominal pain, but is quite tender in the epigastrium, also has left flank pain. No fevers, no chills, no recent travel, does have a sinus symptoms which she feels are related to her seasonal allergies, no cough, no shortness of breath, no chest tightness, no exposure to COVID19. She does report that she has been having dysuria, increased urinary frequency, no previous history of UTIs, does have left flank pain, left back pain. Patient states that she was here in the emergency room on October 19, was discharged with Percocet and promethazine. But patient states that she is not been able to keep down her pills, and the pills make her too drowsy, and she has not been improving. Review of Systems Const: Reports: fatigue and malaise; Denies: fever or chills Eyes: Denies: change in vision or blurry vision ENMT: Denies: nasal congestion Resp: Denies: shortness of breath, productive cough, non-productive cough or wheezing GI: Reports: abdominal pain, nausea and vomiting; Denies: vomiting blood, diarrhea, constipation, blood in stool or black tarry stool : Reports: flank pain, painful urination and urinary frequency Musc: Denies: neck pain or back pain Skin/Breast: Denies: rash Neuro: Denies: headache, dizziness or vertigo Psych: Denies: anxiety or depression Endo: Reports: excessive urination; Denies: excessive thirst Medications/Allergies Allergies Allergy/AdvReac Type Severity Reaction Status Date / Time Opioids - Morphine Analogues AdvReac ADR-Anxiety Verified 10/24/19 15:32 PFSH Acute PFSH: Medical History (Updated 10/24/19 @ 18:57 by Tejinder Lozano MD) Endometriosis Surgical History (Updated 10/24/19 @ 18:01 by Stephan Telles DO) S/P cholecystectomy Tubal ligation status Social History (Updated 09/19/19 @ 08:44 by [place] Ghotra LPN) Smoking and tobacco status: current every day smoker cigarettes Packs smoked per day: 1 Alcohol intake: former Last substance use date: 07/18/19 Marital status: Female Reproductive History: Date of last menstrual period: 07/19/19 Para: 1 Spontaneous abortions: No Vitals/I&O/Wt Last Vital Signs Temp 98.5 F 10/24/19 15:23 Pulse 49 L 10/24/19 15:23 Resp 18 10/24/19 15:23 BP 162/64 10/24/19 15:23 Pulse Ox 98 10/24/19 15:23 Weight last 48 hrs Weight 113.398 kg Physical Exam Const: COMMON NORMALS: no apparent distress and oriented x3 GENERAL APPEARANCE: cooperative and comfortable HENMT: COMMON NORMALS: normocephalic HEAD & SCALP: normocephalic Eye: COMMON NORMALS: PERRL, EOMs intact bilaterally and no papilledema GENERAL EYE: normal appearance of both eyes PUPIL: Yes PERRL DIRECT OPHTHALMOSCOPY: Yes no papilledema Neck/C-Spine: COMMON NORMALS: full ROM, no lymphadenopathy, no JVD and thyroid normal THYROID: thyroid normal Lymph: LYMPHATIC: no lymphadenopathy noted Resp: COMMON NORMALS: normal respiratory effort, no retractions, no use of accessory muscles and clear to auscultation bilaterally AUSCULTATION: clear to auscultation bilaterally Cardio: COMMON NORMALS: no JVD, regular rate, regular rhythm, S1 normal heart sound, S2 normal heart sound, no gallops, no clicks and no murmurs RATE: regular rate RHYTHM: regular rhythm HEART SOUNDS: S1 normal and S2 normal GI: COMMON NORMALS: normal to inspection, nondistended, normoactive bowel sounds, soft to palpation and no hepatosplenomegaly PALPATION: Yes soft, Yes tender Details: LLQ, RLQ, LUQ, RUQ and other, No guarding, No rigid and Yes no hepatosplenomegaly : OTHER: Left CVA tenderness Extremity: COMMON NORMALS: normal to inspection, full ROM and no pedal edema Neuro: COMMON NORMALS: oriented x3, CN's II-XII intact bilaterally, moves all extremities and no focal motor deficits Psych: COMMON NORMALS: mental status grossly normal, thought process normal and cooperative THOUGHT PROCESS: normal thought process Data : 10/24/19 15:50 10/24/19 15:50 A&P Assessment and plan (1) Pyelonephritis of left kidney: -Patient has left CVA tenderness, increased urinary frequency, dysuria, with intractable nausea, vomiting, fatigue, malaise -CT scan shows subtle striated nephrograms, mild pyelonephritis -urinalysis is pending -White blood cell count 15.2, inflammatory markers pending -Creatinine 1.3 Plan: -IV hydration with normal saline, monitor creatinine, monitor vitals -Rocephin, follow urinalysis, follow urine cultures -Morphine for pain, tramadol for secondary control -Zofran for nausea, Reglan for secondary control Status: Acute (2) Intractable nausea and vomiting: As above Status: Acute (3) Uterine fibroid: On Lupron therapy, plans for surgical intervention in the near future Status: Acute (4) Hypertension: Blood pressure 162/64 Start Norvasc 10 mg once daily in addition to atenolol Status: Acute (5) GERD (gastroesophageal reflux disease): Status: Acute (6) ALLYSSA (acute kidney injury): Creatinine 1.3, on IV fluids, secondary to dehydration Status: Acute Attestations Medical Necessity Statement*: Patient requires hospitalization, outpatient with observation, for intractable nausea, vomiting, pyelonephritis left kidney Coding Level of Care Code Acute Machining Associate for [facility] Fwd Diagnoses Pyelonephritis of left kidney N12 Intractable nausea and vomiting R11.2 Uterine fibroid D25.9 Hypertension I10 GERD (gastroesophageal reflux disease) K21.9 ALLYSSA (acute kidney injury) N17.9
[2019-10-24 19:09] LABS: Troponin 5 2HR 6.35 ng/mL (0-10)
[2019-10-24 19:11] LABS: Troponin 5 2HR Delta -1.65 ABS# (0-10)
[2019-10-24 19:12] LABS: Anion Gap 23.1 (5-19); Chloride 92 mmol/L (98-107); Osmolality Calculated 283 mOsm/kg (285-295); Potassium 3.1 mmol/L (3.5-5.1); Sodium 137 mmol/L (136-145)
[2019-10-24 19:48] VITALS: BP 106/70; PULSE 54; RESP 20; TEMP 37; O2SAT 96
[2019-10-24 20:16] LABS: Procalcitonin 0.04 ng/mL (0-0.5); Thyroid Stimulating Hormone 2.37 uIU/mL (0.27-4.20)
[2019-10-24] MEDS: sodium chloride 0.9% 1,000 ML 75 ML IV (20:18)
[2019-10-24] MEDS: cefTRIAXone 1,000 MG in sodium chloride 0.9% (plus) 50 ML 100 MG IV (20:18)
[2019-10-24] MEDS: enoxaparin 40 mg/0.4 mL Syringe SUBCUT (20:24)
[2019-10-24] MEDS: lidocaine 2% viscous 15 ML, aluminum-mag hydrox-simethicon 30 ML, sucralfate oral liq 1 GM PO (20:24)
[2019-10-24] MEDS: amlodipine 10 mg Tablet PO (20:24)
[2019-10-24] MEDS: hyDROXYzine 25 mg Capsule 100 MG PO (20:24)
[2019-10-24 20:26] LABS: C Reactive Protein 5.5 mg/L (0.0-4.9)
[2019-10-24 21:10] LABS: Add Urine Microscopic? NO
[2019-10-24 21:37] LABS: Bilirubin Urine Neg (NEGATIVE); Blood Urine Neg (Negative); Glucose Urine UA Norm (Normal); Ketones Urine Negative (Negative); Leukocyte Esterase Urine Negative (Negative); Nitrate Urine Negative (Negative); Protein Urine Neg (Negative); Specific Gravity, Urine 1.005 (1.005-1.030); Urine Appearance Clear (CLEAR); Urine Color Yellow (Yellow); Urobilinogen Urine Norm (Negative); pH Urine 7 (5-7)
[2019-10-24 22:12] LABS: Troponin 5 6HR 7.47 ng/mL (0-10)
[2019-10-24 22:49] LABS: Troponin 5 6HR Delta -0.53 ng/L (0-12)
[2019-10-25] VITALS (12 sets, daily range): BP systolic 114–194; BP diastolic 72–88; PULSE 44–70; RESP 16–20; TEMP 36.6–37.1; O2SAT 94–98
[2019-10-25 04:52] LABS: Basophils # 0.1 10^3/uL (0.0-0.1); Basophils % 0.6 %; Eosinophils # 0.1 10^3/uL (0.0-0.8); Eosinophils % 0.6 %; Hemoglobin 14.4 g/dL (11.5-15.3); Lymphocytes # 5.7 10^3/uL (0.8-4.8); Lymphocytes % 39.7 %; Mean Corpuscular HGB Conc 31.3 g/dL (30.0-36.0); Mean Corpuscular Hemoglobin 27.4 pg (28.0-34.0); Mean Corpuscular Volume 87.6 fL (81-99); Mean Platelet Volume 9.4 fL (7.4-10.4); Monocytes # 1.5 10^3/uL (0.2-0.9); Monocytes % 10.4 %; Neutrophils # 6.9 10^3/uL (1.8-7.7); Neutrophils % 48.3 %; Nucleated Red Blood Cells % 0 %; Platelet Count 326 10^3/cmm (130-400); Red Blood Count 5.25 10^6/uL (4.1-5.3); Red Cell Distribution Width 14.3 % (12.1-15.1); White Blood Count 14.3 10^3/uL (4.0-10.0)
[2019-10-25 05:01] LABS: Alanine Aminotransferase 27 U/L (0-33); Albumin Level 4.1 g/dL (3.5-5.2); Alkaline Phosphatase 56 IU/L (35-105); Anion Gap 17.2 (5-19); Aspartate Amino Transferase 23 U/L (0-32); Blood Urea Nitrogen 15 mg/dL (6-20); Calcium 9.6 mg/dL (8.5-10.5); Carbon Dioxide 29 mmol/L (22-29); Chloride 97 mmol/L (98-107); Glomerular Filtration Rate 44.5 mL/min (90-130); Glucose 95 mg/dL (65-115); Osmolality Calculated 286 mOsm/kg (285-295); Potassium 3.2 mmol/L (3.5-5.1); Sodium 140 mmol/L (136-145); Total Bilirubin 0.4 mg/dL (0.15-1.2); Total Protein 8.1 g/dL (6.6-8.7)
[2019-10-25 05:17] LABS: Estmated Average Glucose 111; Hemoglobin A1C 5.5 % (4.0-6.0)
[2019-10-25 05:23] LABS: Magnesium 2.2 mg/dL (1.7-2.3); Phosphorus 3.7 mg/dL (2.5-4.5)
[2019-10-25 05:36] LABS: Slide Review Slide Review Perform
[2019-10-25] MEDS: metoclopramide 5 mg/mL SDV 2 mL IVP (08:38)
[2019-10-25] MEDS: pantoprazole DR 40 mg Tablet PO (08:38)
[2019-10-25] MEDS: atenolol 50 mg Tablet PO (08:39)
[2019-10-25] MEDS: amlodipine 10 mg Tablet PO (08:39)
[2019-10-25] MEDS: TRAMadol 50 mg Tablet PO ×2 (08:39→20:34)
[2019-10-25] MEDS: promethazine 25 mg/mL SDV 1 mL IM ×2 (10:07→16:06)
[2019-10-25] MEDS: sodium chloride 0.9% 1,000 ML 75 ML IV (10:07)
[2019-10-25] MEDS: ketorolac 30 mg/mL INJ 15 MG IVP (10:07)
--- NOTE | 2019-10-25 10:20 | PC.CHAP ---
Pastoral Care Encounter/Spiritual Assessment Type of Contact [] Declined resin maker visit [] Patient/Family/Request visit [] Outpatient visit [] Follow-up visit [] Physician referral [] Code/Alert [x] Routine visit [] Staff referral [] Actively dying [] Patient sleeping [] Family support [] [] Out of room [] Palliative care [] [] Receiving care in room [] Pre-surgical visit [] Trauma [] Long length of stay [] ICU visit [] Other: Relational/Emotional Strength [] Patient feels connected with others/family/visitors/staff [] Distress [] Loneliness/isolation [] Abandonment Spirituality of Patient [] Person of [place] [] Attends Caodaism of their [place] [] Believes in Prayer [] Reads Bible or Yazdanism materials [] There are Spiritual issues to be addressed Or Nurse Manager 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 [x] Prayer [] Active listening [] Non-anxious presence [] Spiritual/emotional support [] Crisis/trauma care [] Spiritual counseling [] Bereavement support [] Provided bereavement packet [] Provided Bible/devotional materials [] Provided toy/stuffed animal, coloring book to patient or family member [] Provided Communion [] Anointing/[place] [] Salvation [x] Completed spiritual assessment [] Other: Impact on Illness or Injury [] Angry [] Fearful [] Anxious [] Often cries [] Exhaustion [] Unable to work [] Unable to attend lutheran [] Unable to walk/stand [] Unable to read [] Unable to drive [] Unable to eat/drink [] Unable to sleep [] Unable to be with family [] Patient intubated [] Other: Summary Patient resting well Time spent with patient 10 min
--- NOTE | 2019-10-25 10:27 | P.PN_ITS ---
Subjective Subjective: Interval history: This morning patient states that she still nauseous, continues to have upper abdominal pain, is wondering why she continues to have abdominal pain, no fevers, no chills, has a poor appetite, no diarrhea Vitals/I&O/Wt Last Vital Signs Temp 98.3 F 10/25/19 08:00 Pulse 70 10/25/19 08:46 Resp 17 10/25/19 08:00 BP 155/84 10/25/19 08:00 Pulse Ox 96 10/25/19 08:00 10/24/19 10/25/19 10/25/19 22:59 06:59 14:59 Intake Total 1360 / 1360 Output Total 150 / 150 210 / 360 Balance -150 / -150 -210 / -360 1360 / 1360 Weight last 48 hrs Weight 113.398 kg Physical Exam Const: COMMON NORMALS: no apparent distress and oriented x3 HENMT: COMMON NORMALS: normocephalic HEAD & SCALP: normocephalic Neck/C-Spine: COMMON NORMALS: no JVD Resp: COMMON NORMALS: normal respiratory effort, no retractions, no use of accessory muscles and clear to auscultation bilaterally AUSCULTATION: clear to auscultation bilaterally Cardio: COMMON NORMALS: no JVD, regular rate, regular rhythm, S1 normal heart sound and S2 normal heart sound RATE: regular rate RHYTHM: regular rhythm HEART SOUNDS: S1 normal and S2 normal GI: COMMON NORMALS: normal to inspection, nondistended, normoactive bowel sounds, soft to palpation, no hepatosplenomegaly, no masses and no bruits PALPATION: Yes soft, Yes tender, No guarding, No rigid and Yes no hepatos plenomegaly Extremity: COMMON NORMALS: normal capillary refill, no clubbing, cyanosis or edema, no calf tenderness and no pedal edema Neuro: COMMON NORMALS: oriented x3 Psych: COMMON NORMALS: mental status grossly normal Data : 10/25/19 04:19 10/25/19 04:19 Micro: Microbiology 10/24/19 19:35 Blood Culture - Preliminary Blood SPECIMEN COLLECTED 10/24/19 15:50 Blood Culture - Preliminary Blood SPECIMEN COLLECTED A&P Assessment and plan (1) Pyelonephritis of left kidney: -Patient has left CVA tenderness, increased urinary frequency, dysuria, with intractable nausea, vomiting, fatigue, malaise -CT scan shows subtle striated nephrograms, mild pyelonephritis -urinalysis was lackluster -White blood cell count 15.2, inflammatory markers pending -Creatinine 1.3 Plan: -IV hydration with normal saline, monitor creatinine, monitor vitals -Rocephin -Morphine for pain, tramadol for secondary control -Zofran for nausea, Reglan for secondary control -Add promethazine for nausea, add Toradol for pain Status: Acute (2) Intractable nausea and vomiting: As above Status: Acute (3) Uterine fibroid: On Lupron therapy, plans for surgical intervention in the near future Status: Acute (4) Hypertension: Blood pressure 162/64 Start Norvasc 10 mg once daily in addition to atenolol Status: Acute (5) GERD (gastroesophageal reflux disease): Status: Acute (6) ALLYSSA (acute kidney injury): Creatinine 1.3, on IV fluids, secondary to dehydration Status: Acute Attestations Medical Necessity Statement*: Cards continued hospitalization for intractable nausea vomiting, pyelonephritis left kidney Coding Level of Care Code Acute Tank Worker for [facility] Fwd Diagnoses Pyelonephritis of left kidney N12 Intractable nausea and vomiting R11.2 Uterine fibroid D25.9 Hypertension I10 GERD (gastroesophageal reflux disease) K21.9 ALLYSSA (acute kidney injury) N17.9
[2019-10-25] MEDS: cloNIDine 0.1 mg Tablet PO ×2 (12:20→18:18)
[2019-10-25] MEDS: morphine 4 mg/mL SDV 1 mL 2 MG IVP ×2 (12:25→16:06)
[2019-10-25] MEDS: lidocaine 2% viscous 15 ML, aluminum-mag hydrox-simethicon 30 ML, sucralfate oral liq 1 GM PO (12:26)
[2019-10-25] MEDS: ondansetron 2 mg/ML SDV 2 mL 4 MG IVP ×2 (12:26→19:55)
[2019-10-25] MEDS: LORazepam 2 mg/mL INJ 1 mL 1 MG IVP ×2 (12:26→20:49)
[2019-10-25] MEDS: enoxaparin 40 mg/0.4 mL Syringe SUBCUT (20:33)
[2019-10-25] MEDS: hyDROXYzine 25 mg Capsule 100 MG PO (20:34)
[2019-10-25] MEDS: cefTRIAXone 1,000 MG in sodium chloride 0.9% (plus) 50 ML 100 MG IV (20:34)
[2019-10-26 04:00] VITALS: BP 124/73; PULSE 48; RESP 20; TEMP 36.8; O2SAT 96
[2019-10-26 04:55] LABS: Basophils # 0.1 10^3/uL (0.0-0.1); Basophils % 0.8 %; Eosinophils # 0.1 10^3/uL (0.0-0.8); Eosinophils % 1.4 %; Hematocrit 40.7 % (37.0-47.0); Hemoglobin 13.2 g/dL (11.5-15.3); Lymphocytes # 3.8 10^3/uL (0.8-4.8); Lymphocytes % 38.4 %; Mean Corpuscular HGB Conc 32.4 g/dL (30.0-36.0); Mean Corpuscular Hemoglobin 28.4 pg (28.0-34.0); Mean Corpuscular Volume 87.5 fL (81-99); Mean Platelet Volume 9.3 fL (7.4-10.4); Monocytes # 1.1 10^3/uL (0.2-0.9); Monocytes % 11.6 %; Neutrophils # 4.7 10^3/uL (1.8-7.7); Neutrophils % 47.5 %; Nucleated Red Blood Cells % 0 %; Platelet Count 281 10^3/cmm (130-400); Red Blood Count 4.65 10^6/uL (4.1-5.3); Red Cell Distribution Width 13.9 % (12.1-15.1); White Blood Count 9.8 10^3/uL (4.0-10.0)
[2019-10-26 05:14] LABS: Alanine Aminotransferase 23 U/L (0-33); Albumin Level 3.5 g/dL (3.5-5.2); Alkaline Phosphatase 48 IU/L (35-105); Anion Gap 16.2 (5-19); Blood Urea Nitrogen 14 mg/dL (6-20); Calcium 9.2 mg/dL (8.5-10.5); Carbon Dioxide 23 mmol/L (22-29); Chloride 98 mmol/L (98-107); Globulin 3.4 g/dL (1.3-4.6); Glucose 103 mg/dL (65-115); Osmolality Calculated 274 mOsm/kg (285-295); Potassium 3.2 mmol/L (3.5-5.1); Sodium 134 mmol/L (136-145); Total Bilirubin 0.3 mg/dL (0.15-1.2); Total Protein 6.9 g/dL (6.6-8.7)
[2019-10-26 05:15] LABS: Magnesium 2.2 mg/dL (1.7-2.3); Phosphorus 3.6 mg/dL (2.5-4.5)
[2019-10-26 05:43] LABS: Aspartate Amino Transferase 25 U/L (0-32)
[2019-10-26 07:18] VITALS: BP 111/62; PULSE 45; RESP 22; TEMP 36.7; O2SAT 96
[2019-10-26] MEDS: TRAMadol 50 mg Tablet PO (08:14)
[2019-10-26 08:15] VITALS: BP 111/62
[2019-10-26] MEDS: ondansetron 2 mg/ML SDV 2 mL 4 MG IVP (08:15)
[2019-10-26] MEDS: cloNIDine 0.1 mg Tablet PO (08:15)
[2019-10-26] MEDS: atenolol 50 mg Tablet PO (08:15)
[2019-10-26] MEDS: amlodipine 10 mg Tablet PO (08:15)
[2019-10-26] MEDS: pantoprazole DR 40 mg Tablet PO (08:15)
[2019-10-26 09:45] VITALS: BP 111/62; PULSE 45; RESP 22; TEMP 36.7; O2SAT 96
--- NOTE | 2019-10-26 10:11 | P.DS_ITS ---
Discharge Providers Date of Admission: 10/25/19 12:28 Date of Discharge: October 26, 2019 Attending Provider at Admission: Tejinder Lozano MD Attending Provider at Discharge: Tejinder Lozano MD Primary Care Provider: TAJ Franks Diagnoses at Discharge Discharge Diagnosis (1) Pyelonephritis of left kidney: Status: Acute (2) Intractable nausea and vomiting: Status: Acute (3) Uterine fibroid: Status: Acute Problem details: MRI reviewed with patient. One fibroid is up to 7 cm in size another 1 at 5 cm in size plus multiple other fibroid. Urine [id number] grams recommend Depo- Lupron for 3 months to try to affect continuation uterine size followed by hys terectomy either laparoscopic-assisted vaginal hysterectomy or laparoscopic total removed either via vaginal morcellation or by mini laparotomy and morcellation. (4) Hypertension: Status: Acute (5) GERD (gastroesophageal reflux disease): Status: Acute (6) ALLYSSA (acute kidney injury): Status: Acute Reason for Visit Reason for Visit: Reason For Visit: CHEST PAIN Hospital Course Hospital Course: China Batres is a 44 year old female -0-2-1 with a past medical history of GERD, gastritis, duodenitis, sinus bradycardia, anemia, history of abnormal uterine bleeding with uterine fibroids (leiomyoma) who presents to the emergency room due to complaints of nausea, vomiting, abdominal pain, flank pain, dysuria. Patient was admitted multiple times in June 2019 with similar symptoms of nausea, vomiting had an EGD by Dr. Elias which showed gastritis and duodenitis, and bile reflux for which she was placed on Carafate and Protonix. She was also found to have a uterine mass, which subsequently was found to be a uterine leiomyoma by hysteroscopy with EMB, Milagro currently on Lupron therapy with plans on surgical intervention in the near future through NAIL MILL WORKER. Patient was admitted for intractable nausea, vomiting related to left pyelonephritis, duodenitis, gastritis. Patient was admitted to general medical floors, was kept n.p.o., received GI cocktail, received IV fluids, pain control, nausea control, received broad-spectrum antibiotics. Patient clinically improved, she was transitioned to a GI soft diet, taken off IV fluids, antibiotics were de-escalated, pain control and nausea control was de-escalated. Patient clinically improved and did well. Patient was discharged on a short supply of liquid [place] due to difficulties keeping pills down, rectal suppository promethazine due to difficulty keeping pills down. Patient was advised to use narcotic pain medications very sparingly, and do not use with any other narcotic medications that she has at home, due to risk of side effects, including respiratory depression, significant morbidity mortality. She was also advised to use promethazine sparingly, advised of risks, voiced understanding, all questions answered. She is discharged on a 7-day supply of Bactrim. She was discharged on her home Protonix 40 mg p.o. daily. Patient was advised to follow-up with a primary care provider in 1 month. Patient was also advised to follow-up with her NAIL MILL WORKER physician in 1 month. Some thought was some of patient's symptoms could be related to uterine leiomyoma, but she is on Lupron therapy, she is responded appropriately, no vaginal bleeding, and her pain complaints seemed more gastritis related and pyelonephritis related. Discharge Data Data Completed and Pending: Completed Studies During Hospitalization Category Date Time Status CT abdomen pelvis w con* [id number] Stat Cat Scan 10/24/19 16:11 Completed XR chest 1V mellissa ble [id number] Stat Exams 10/24/19 15:33 Completed Pending at discharge Category Date Time Status Blood Culture Sta t Lab 10/24/19 19:35 Results Complete Blood Co unt w/Auto AM LABS Lab 10/27/19 04:00 Ordered Complete Blood Co unt w/Auto AM LABS Lab 10/28/19 04:00 Ordered Comprehensive Met abolic Panel AM LA BS Lab 10/27/19 04:00 Ordered Comprehensive Met abolic Panel AM LA BS Lab 10/28/19 04:00 Ordered Magnesium AM LABS Lab 10/27/19 04:00 Ordered Phosphorus AM LAB S Lab 10/27/19 04:00 Ordered Urine Culture Sta t Lab 10/24/19 20:55 Results Labs from last 24 hours 10/26/19 10/26/19 10/26/19 04:43 04:43 04:43 WBC 9.8 RBC 4.65 Hgb 13.2 Hct 40.7 MCV 87.5 MCH 28.4 MCHC 32.4 RDW 13.9 Plt Count 281 MPV 9.3 Neut % (Auto) 47.5 Lymph % (Auto) 38.4 [place] % (Auto) 11.6 Eos % (Auto) 1.4 Baso % (Auto) 0.8 Neut # (Auto) 4.7 Lymph # (Auto) 3.8 [place] # (Auto) 1.1 H Eos # (Auto) 0.1 Baso # (Auto) 0.1 Nucleated RBC % (a uto) 0 Nucleated RBCs # 0.0 Sodium 134 L Potassium 3.2 L Chloride 98 Carbon Dioxide 23 Anion Gap 16.2 BUN 14 Creatinine 1.1 H GFR Calculation 54.0 L Glucose 103 Calculated Osmolal ity 274 L Calcium 9.2 Phosphorus 3.6 Magnesium 2.2 Total Bilirubin 0.3 AST 25 ALT 23 Alkaline Phosphata se 48 Total Protein 6.9 Albumin 3.5 Globulin 3.4 Vitals: Last Vital Signs Temp 98.0 F 10/26/19 09:45 Pulse 45 L 10/26/19 09:45 Resp 22 H 10/26/19 09:45 BP 111/62 10/26/19 09:45 Pulse Ox 96 10/26/19 09:45 Discharge Plan Discharge Patient Disposition: Home, Self-Care Condition: Stable Prescriptions: New amlodipine 10 mg Tablet 10 mg PO DAILY 30 Days Qty: 30 RF: 0 hydrocodone-acetaminophen 7.5-325 mg/15 mL solution 7.5 ml PO Q12H PRN (Reason: pain) 5 Days Qty: 75 RF: 0 Bactrim DS 800-160 mg tablet 1 tab PO BID 7 Days Qty: 14 RF: 0 Continued Protonix [address] for susp in packet 40 mg PO DAILY RF: 0 atenolol 25 mg tablet 25 mg PO .three times weekly RF: 0 medroxyprogesterone [Depo-Provera] 150 mg/mL suspension 150 mg IM ONCE Qty: 1 RF: 0 hydroxyzine HCl 50 mg tablet 100 mg PO .bedtime Qty: 90 RF: 0 cetirizine 10 mg capsule 10 mg PO DAILY RF: 0 Zofran 4 mg tablet 4 mg PO Q8H PRN (Reason: Nausea) 5 Days Qty: 10 RF: 0 Changed promethazine 25 mg suppository 25 mg [place] BID PRN (Reason: nausea and vomiting) 5 Days Qty: 10 RF: 0 Discontinued hydrocodone-acetaminophen 5-325 mg tablet 1 tab PO Q4H PRN (Reason: Pain) RF: 0 promethazine 25 mg tablet 25 mg PO Q6H PRN (Reason: NAUSEA/VOMITING) RF: 0 oxycodone-acetaminophen [Percocet] 7.5-325 mg tablet 1 tab PO Q8H PRN (Reason: pain) Qty: 14 RF: 0 promethazine 25 mg tablet 25 mg PO TID PRN (Reason: nausea) Qty: 90 RF: 0 Discharge Orders: Discharge Order (Routine); Ordered 10/26/19 Ordered By: Tejinder Lozano Referrals: Pepper Lopez PA [Primary Care Provider] - Discharge Diet: GI Soft Discharge Activity: Resume usual activity Patient Instructions: Sulfamethoxazole/Trimethoprim (By mouth), Hydrocodone/Acetaminophen (By mouth), Amlodipine (By mouth), Uterine Fibroids (DC), How to Stop Smoking (DC), Acute Kidney Injury (DC), Acute Pyelonephritis (DC), Acute Nausea and Vomiting (DC), Acute Abdominal Pain (DC), Hypertension (DC) Activity Restrictions/Additional Instructions: -Please use [place] liquid sparingly -Please do not use Percocet and or other narcotic medications with prescribed medications -Please use promethazine rectal suppository take as needed -Follow-up with primary care in 1 week -Follow-up with NAIL MILL WORKER in 1 month Discharge Attestations Time Spent in Discharge Care*: less than 30 min Quality Metrics Clinical Quality Measures During this hospital stay, did patient experience: None Coding Level of Care Code Acute Director Of Rehabilitative Services for [facility]g Fwd Diagnoses Pyelonephritis of left kidney N12 Intractable nausea and vomiting R11.2 Uterine fibroid D25.9 Hypertension I10 GERD (gastroesophageal reflux disease) K21.9 ALLYSSA (acute kidney injury) N17.9
--- NOTE | 2019-10-31 14:52 | PC.SOCIAL ---
patient is unable to see Aretha currently at clinic. Call placed to Dr Amaya office and they will coordinate a televisit for Thurs am at 10:30. Clinic staff will be calling her to see how to set this visit up. Updated patient and she is agreeable.
== END 2019-10-26 10:29 | disposition home or self-care (01) | DRG 690 ==
LOC: ER 18:08 → MEDSURG 18:42
PROVIDERS: Admitting Provider Family Medicine; Emergency Provider Family Medicine; PCP Nurse Practitioner; Visit Provider Family Medicine
DX: N10 Acute pyelonephritis (principal); K21.9 Gastro-esophageal reflux disease without esophagitis; D25.9 Leiomyoma of uterus, unspecified; N17.9 Acute kidney failure, unspecified; R00.1 Bradycardia, unspecified; D64.9 Anemia, unspecified; F17.210 Nicotine dependence, cigarettes, uncomplicated
CPT/HCPCS: 12345; 36415; 71045; 74177; 80053; 81003; 83036; 83690; 83735; 84100; 84145; 84443; 84484; 85025; 86140; 87040; 87086; 93005; 96372; 96374; 96375; 99281; G0378; J0696; J1650; J1885; J2060; J2270; J2405; J2550; J2765; J7030; Q9967

== ENCOUNTER → 2019-11-22 10:51 | Outpatient (BNVA) | payer SELFPAY | PROVIDERS: PCP Nurse Practitioner; Visit Provider Family Medicine | DX: I10 Essential (primary) hypertension (principal); R11.0 Nausea; K21.9 Gastro-esophageal reflux disease without esophagitis; R11.2 Nausea with vomiting, unspecified | CPT/HCPCS: 80053 ==

== ENCOUNTER 2019-12-14 19:01 | Inpatient (IN) | payer SELFPAY ==
[2019-12-14 19:08] VITALS: BP 128/59; PULSE 55; RESP 16; TEMP 36.3; O2SAT 95; BMI 40.3
[2019-12-14 19:31] LABS: Basophils % 0.2 %; Hematocrit 46.6 % (37.0-47.0); Hemoglobin 15.9 g/dL (11.5-15.3); Lymphocytes # 2.7 10^3/uL (0.8-4.8); Lymphocytes % 15.3 %; Mean Corpuscular HGB Conc 34.1 g/dL (30.0-36.0); Mean Corpuscular Hemoglobin 29.8 pg (28.0-34.0); Mean Corpuscular Volume 87.3 fL (81-99); Mean Platelet Volume 9.1 fL (7.4-10.4); Monocytes # 1.6 10^3/uL (0.2-0.9); Monocytes % 9.3 %; Neutrophils % 74.7 %; Nucleated Red Blood Cells % 0 %; Platelet Count 398 10^3/cmm (130-400); Red Blood Count 5.34 10^6/uL (4.1-5.3); Red Cell Distribution Width 13.7 % (12.1-15.1); White Blood Count 17.5 10^3/uL (4.0-10.0)
[2019-12-14] MEDS: sodium chloride 0.9% 1,000 ML 999 ML IV (19:45)
[2019-12-14 19:51] LABS: Alanine Aminotransferase 29 U/L (0-33); Alkaline Phosphatase 55 IU/L (35-105); Anion Gap 20.4 (5-19); Aspartate Amino Transferase 25 U/L (0-32); Blood Urea Nitrogen 20 mg/dL (6-20); Calcium 10.3 mg/dL (8.5-10.5); Carbon Dioxide 28 mmol/L (22-29); Chloride 94 mmol/L (98-107); Globulin 3.3 g/dL (1.3-4.6); Glucose 127 mg/dL (65-115); Lipase 33 U/L (13-60); Osmolality Calculated 286 mOsm/kg (285-295); Potassium 3.4 mmol/L (3.5-5.1); Sodium 139 mmol/L (136-145); Total Bilirubin 0.6 mg/dL (0.15-1.2); Total Protein 8.3 g/dL (6.6-8.7)
[2019-12-14 19:55] LABS: HCG, Serum Qual Negative (Negative)
[2019-12-14] MEDS: metoclopramide 5 mg/mL SDV 2 mL IVP (20:10)
--- NOTE | 2019-12-14 20:40 | W.ED.ABDPA2 ---
HPI - Abdominal Pain General: Chief Complaint: Abdominal Pain Stated Complaint: ABD PAIN, N/V Time Seen by Provider: 12/14/19 19:16 History of Present Illness: HPI narrative: This patient is a 44-year-old female who presents today complaining of abdominal pain and vomiting for 2 days. She has had a couple of episodes like this starting in June. She has been admitted to the hospital and worked up for gastritis and eventually was found to have uterine fibroids. It was thought that that was a possible cause of her symptoms however gastritis is certainly still a possible cause. She has been doing okay at home with medications for nausea and pain. She says this flared up 2 days ago and she has not been able to get either symptom under control with her normal home meds. She says the pain gets worse with a bowel movement. She said often she feels okay in the morning but when she gets up and feels like she has to have a bowel movement that is when the pain and vomiting starts. She came in by ambulance and was given some Zofran in the ambulance. She was feeling better when I saw her. She has had her gallbladder out. She has not felt she had any fevers. She denies urinary symptoms although on her last admission it is notable that she did have pyelonephritis. She is on Lupron for her fibroids. She is also scheduled for surgery but it was delayed due to the COVID outbreak. MD elicited complaint: abdominal pain Pertinent past history: constipation, gastritis and past UTI Onset (ago): day(s) (2) Pain Consistency: constant Location: RUQ and R flank Severity: severe Quality: cramping Radiation: none Migration to: no migration Exacerbating factors: eating, bowel movement and movement Associated Symptoms: Reports diarrhea, nausea and vomiting; Denies chills and fever(s) Related Data: Date of Last Menstrual Period: 07/19/19 Review of Systems General: Reports: 10 or more systems reviewed and unremarkable except in HPI and below Const: Denies: fever(s), chills, fatigue or malaise Eyes: Denies: change in vision ENMT: Denies: odynophagia Card: Denies: chest pain or swelling of feet/ankles Resp: Denies: dyspnea, productive cough or non-productive cough GI: Reports: abdominal pain, nausea, vomiting and diarrhea : Denies: flank pain or difficulty voiding Musc: Denies: neck pain or back pain Skin/Breast: Denies: rash Neuro: Denies: headache(s), numbness in extremities or weakness in extremities Julien/Lymph: Denies: easy bruising or easy bleeding PFSH ED PFSH: Medical History GERD (gastroesophageal reflux disease) Hypertension Morbid obesity Surgical History S/P cholecystectomy (~2014) laparoscopic S/P dilatation and curettage (~1996) Tubal ligation status (~2009) Scope - falope ring Family History Grandmother Diabetes maternal great Lung cancer maternal Family/Other Diabetes maternal great uncle, cousin Mother Hypertension Stroke Other Cancer Social History Smoking and tobacco status: current every day smoker cigarettes Packs smoked per day: 1 Alcohol intake: former Last substance use date: 07/18/19 Female Reproductive History: Date of last menstrual period: 07/19/19 : 3 Para: 1 Spontaneous abortions: No Physical Exam Const: COMMON NORMALS: no acute distress, patient oriented x3, no limitations and alert GENERAL APPEARANCE: cooperative and comfortable HENMT: HEAD & SCALP: normal to inspection FACE & SINUS: normal facial exam Eye: GENERAL EYE: appearance normal, both eyes and all related structures Neck/C-Spine: COMMON NORMALS: supple, no meningeal signs and no JVD Chest: COMMONS NORMALS: normal inspection of the chest Resp: COMMON NORMALS: normal respiratory effort, No use of accessory muscles and clear to auscultation bilaterally AUSCULTATION: clear to auscultation bilaterally Cardio: COMMON NORMALS: no JVD, regular rate, regular rhythm and No murmurs present (Cardio) RATE: regular rate RHYTHM: regular rhythm GI: COMMON NORMALS: Normal to inspection, nondistended, normoactive bowel sounds present and Soft to palpation INSPECTION: Yes normal to inspection AUSCULTATION: Yes normoactive bowel sounds PALPATION: Yes Soft to palpation and Yes Tenderness to palpation present (GI) Details: RLQ and RUQ Back/Pelvis: COMMON NORMALS: thoracic and lumbar spine normal to inspection Extremity: COMMON NORMALS: normal to inspection Neuro: COMMON NORMALS: patient oriented x3, moves all extremities, no focal motor deficits and no sensory deficits noted SENSORIUM/ORIENTATION: Yes alert MENINGEAL SIGNS: Yes no meningeal signs Psych: COMMON NORMALS: mental status grossly normal, cooperative and normal affect Skin: COMMON NORMALS: no rashes or lesions noted and turgor normal GENERAL SKIN EXAM: no rashes or lesions noted and turgor normal Course ED course: Patient presented with abdominal pain and vomiting for 2 days. She got Zofran in the ambulance and said she felt quite a bit better when I first saw her. She later requested more medicine for nausea. She slept for a while and felt much better when she woke up. She tried to drink some water and unfortunately started vomiting again immediately. She was given more pain medicine and Zofran. She does appear to have a UTI and a white count of 17,000. I am treating her for pyelonephritis. This was the cause of her last admission as well. She had several CTs on that last admission I did not do one today. She will be admitted for IV fluids and IV antibiotics as she is unable to tolerate p.o. Vital Signs: Vital signs: Vital Signs Temperature 97.3 F L 12/14/19 19:08 Pulse Rate 55 L 12/14/19 19:08 Respiratory Rate 22 H 12/14/19 22:42 Blood Pressure 128/59 12/14/19 19:08 Pulse Oximetry 98 12/14/19 22:42 MDM - Abdominal Pain Lab Data: Labs: Lab Results 12/14/19 12/14/19 12/14/19 Range/Units 19:22 19:22 19:22 WBC 17.5 H (4.0-10.0) 10^3/ uL RBC 5.34 H (4.1-5.3) 10^6/u L Hgb 15.9 H (11.5-15.3) g/dL Hct 46.6 (37.0-47.0) % MCV 87.3 (81-99) fL MCH 29.8 (28.0-34.0) pg MCHC 34.1 (30.0-36.0) g/dL RDW 13.7 (12.1-15.1) % Plt Count 398 (130-400) 10^3/c mm MPV 9.1 (7.4-10.4) fL Neut % (Auto) 74.7 % Lymph % (Auto) 15.3 % [place] % (Auto) 9.3 % Eos % (Auto) 0.0 % Baso % (Auto) 0.2 % Neut # (Auto) 13.0 H (1.8-7.7) 10^3/u L Lymph # (Auto) 2.7 (0.8-4.8) 10^3/u L [place] # (Auto) 1.6 H (0.2-0.9) 10^3/u L Eos # (Auto) 0.0 (0.0-0.8) 10^3/u L Baso # (Auto) 0.0 (0.0-0.1) 10^3/u L Nucleated RBC % (a uto) 0 % Nucleated RBCs # 0.0 /100WBC Sodium 139 (136-145) mmol/L Potassium 3.4 L (3.5-5.1) mmol/L Chloride 94 L (98-107) mmol/L Carbon Dioxide 28 (22-29) mmol/L Anion Gap 20.4 H (5-19) BUN 20 (6-20) mg/dL Creatinine 1.1 H (0.5-0.9) mg/dL GFR Calculation 54.0 L (90-130) mL/min Glucose 127 H (65-115) mg/dL Calculated Osmolal ity 286 (285-295) mOsm/k g Calcium 10.3 (8.5-10.5) mg/dL Total Bilirubin 0.6 (0.15-1.2) mg/dL AST 25 (0-32) U/L ALT 29 (0-33) U/L Alkaline Phosphata se 55 (35-105) IU/L Total Protein 8.3 (6.6-8.7) g/dL Albumin 5.0 (3.5-5.2) g/dL Globulin 3.3 (1.3-4.6) g/dL Lipase 33 (13-60) U/L HCG, Qual Negative (Negative) Urine Color (Yellow) Urine Appearance (CLEAR) Urine pH (5-7) Ur Specific Gravit y (1.005-1.030) Urine Protein (Negative) Urine Glucose (UA) (Normal) Urine Ketones (Negative) Urine Blood (Negative) Urine Nitrate (Negative) Urine Bilirubin (NEGATIVE) Urine Urobilinogen (Negative) mg/dL Ur Leukocyte Brittany ase (Negative) Urine RBC (0-2) /hpf Urine WBC (0-5) /hpf Ur Squamous Epith Cells (0-5) Urine Bacteria (NONE) Hyaline Casts Urine Mucus 12/14/19 Range/Units 20:30 WBC (4.0-10.0) 10^3/ uL RBC (4.1-5.3) 10^6/u L Hgb (11.5-15.3) g/dL Hct (37.0-47.0) % MCV (81-99) fL MCH (28.0-34.0) pg MCHC (30.0-36.0) g/dL RDW (12.1-15.1) % Plt Count (130-400) 10^3/c mm MPV (7.4-10.4) fL Neut % (Auto) % Lymph % (Auto) % [place] % (Auto) % Eos % (Auto) % Baso % (Auto) % Neut # (Auto) (1.8-7.7) 10^3/u L Lymph # (Auto) (0.8-4.8) 10^3/u L [place] # (Auto) (0.2-0.9) 10^3/u L Eos # (Auto) (0.0-0.8) 10^3/u L Baso # (Auto) (0.0-0.1) 10^3/u L Nucleated RBC % (a uto) % Nucleated RBCs # /100WBC Sodium (136-145) mmol/L Potassium (3.5-5.1) mmol/L Chloride (98-107) mmol/L Carbon Dioxide (22-29) mmol/L Anion Gap (5-19) BUN (6-20) mg/dL Creatinine (0.5-0.9) mg/dL GFR Calculation (90-130) mL/min Glucose (65-115) mg/dL Calculated Osmolal ity (285-295) mOsm/k g Calcium (8.5-10.5) mg/dL Total Bilirubin (0.15-1.2) mg/dL AST (0-32) U/L ALT (0-33) U/L Alkaline Phosphata se (35-105) IU/L Total Protein (6.6-8.7) g/dL Albumin (3.5-5.2) g/dL Globulin (1.3-4.6) g/dL Lipase (13-60) U/L HCG, Qual (Negative) Urine Color Yellow (Yellow) Urine Appearance Hazy A (CLEAR) Urine pH 5 (5-7) Ur Specific Gravit y 1.025 (1.005-1.030) Urine Protein 2+ H (Negative) Urine Glucose (UA) Norm (Normal) Urine Ketones 1+ H (Negative) Urine Blood 2+ H (Negative) Urine Nitrate Negative (Negative) Urine Bilirubin 1+ H (NEGATIVE) Urine Urobilinogen 1 H (Negative) mg/dL Ur Leukocyte Brittany ase Negative (Negative) Urine RBC 5-10 H (0-2) /hpf Urine WBC None (0-5) /hpf Ur Squamous Epith Cells 5-10 H (0-5) Urine Bacteria 1+ H (NONE) Hyaline Casts 80-100 H Urine Mucus 2+ Discharge Plan Discharge Admit Provider: John Carrillo Coding Level of Care Code ED Inside Sales Account Representative for [facility] Fwd Exam Comprehensive
[2019-12-14 21:09] LABS: Add Urine Microscopic? YES; Bilirubin Urine 1+ (NEGATIVE); Blood Urine 2+ (Negative); Glucose Urine UA Norm (Normal); Ketones Urine 1+ (Negative); Leukocyte Esterase Urine Negative (Negative); Nitrate Urine Negative (Negative); Protein Urine 2+ (Negative); Specific Gravity, Urine 1.025 (1.005-1.030); Urine Appearance Hazy (CLEAR); Urine Color Yellow (Yellow); Urobilinogen Urine 1 mg/dL (Negative); pH Urine 5 (5-7)
[2019-12-14 21:11] LABS: Hyaline Casts Urine 80-100; Mucus Urine 2+
[2019-12-14 21:12] LABS: Add Urine Culture? No; Bacteria Urine 1+
[2019-12-14] MEDS: cefTRIAXone 1,000 MG in sodium chloride 0.9% (plus) 50 ML 100 MG IV (22:22)
[2019-12-14] MEDS: ondansetron 2 mg/ML SDV 2 mL 4 MG IVP (22:41)
[2019-12-14 22:42] VITALS: RESP 22; O2SAT 98
[2019-12-14] MEDS: morphine 4 mg/mL SDV 1 mL IVP (22:42)
--- NOTE | 2019-12-14 22:48 | PM.HP ---
Providers/Chief Complaint Primary Care Provider: Audra Amaya DO Chief Complaint: ABD PAIN, N/V History of Present Illness China Batres is a 44 year old female who presented today with chief complaint of abdominal pain. Patient is stating that her symptoms started on Wednesday, she experienced right-sided flank pain associated with multiple episodes of nausea and vomiting, she has had more than 10 episodes of bilious vomiting, her p.o. intake has been poor, she did not notice any fever, chest pain, shortness of breath, orthopnea, PND, dysuria. She is endorsing mild pain on urination, denies radiation of her flank pain towards her groin. She has not noticed any blood in her urine. Diagnosis in the ER revealed leukocytosis, afebrile, normal hemodynamics Does not meet sepsis criteria Urinalysis is abnormal with blood and RBCs I have requested CT abdomen pelvis with and without contrast Is required multiple doses of antiemetic, because of recurrent nausea and vomiting she will be admitted to hospitalist service Review of Systems Const: Reports: body aches, change in appetite and fatigue; Denies: fever(s) or chills Eyes: Denies: change in vision ENMT: Denies: throat pain Card: Denies: chest pain Resp: Denies: dyspnea GI: Reports: abdominal pain, nausea, vomiting, heartburn and constipation; Denies: diarrhea : Reports: flank pain and dysuria Musc: Denies: neck pain Skin/Breast: Denies: rash Neuro: Denies: headache(s) Psych: Denies: anxiety Endo: Denies: cold intolerance Julien/Lymph: Denies: easy bruising All/Imm: Denies: urticaria Medications/Allergies Home Medications Medication Instructions Recorded Confirmed Last Taken Type pantoprazole 40 mg granules 40 mg PO DAILY each 07/20/19 11/22/19 10/24/19 History delayed-release for susp in packet cetirizine 10 mg capsule 10 mg PO DAILY 08/25/19 11/22/19 10/24/19 History hydroxyzine HCl 50 mg tablet 100 mg PO .bedtime PRN tab 11/02/19 11/22/19 Unknown History atenolol 25 mg tablet 25 mg PO DAILY #90 tab 11/22/19 11/22/19 Unknown Rx hydrocodone 7.5 mg-acetaminophen 7.5 ml PO BID PRN 30 Days #450 ml 05/06/20 05/06/20 Unknown Rx 325 mg/15 mL oral solution lorazepam 0.5 mg tablet 0.5 mg PO BID PRN #60 tab 11/22/19 11/22/19 Unknown Rx ondansetron HCl 8 mg tablet 8 mg PO Q8H PRN 30 Days #90 tab 11/22/19 11/22/19 Unknown Rx promethazine 25 mg tablet 25 mg PO .po q hs PRN #90 tab 11/22/19 11/22/19 Unknown Rx Allergies Allergy/AdvReac Type Severity Reaction Status Date / Time No Known Allergies Allergy Verified 11/22/19 10:17 PFSH Acute PFSH: Medical History GERD (gastroesophageal reflux disease) Hypertension Morbid obesity Surgical History S/P cholecystectomy (~2014) laparoscopic S/P dilatation and curettage (~1996) Tubal ligation status (~2009) Scope - falope ring Family History Grandmother Diabetes maternal great Lung cancer maternal Family/Other Diabetes maternal great uncle, cousin Mother Hypertension Stroke Other Cancer Social History (Updated 12/14/19 @ 23:36 by John Carrillo MD) Smoking and tobacco status: current every day smoker cigarettes Packs smoked per day: 1 Alcohol intake: former Substance/Drug Use: never Last substance use date: 07/18/19 Household members: family Housing: House Female Reproductive History: Date of last menstrual period: 07/19/19 : 3 Para: 1 Spontaneous abortions: No Vitals/I&O/Wt Last Vital Signs Temp 97.3 F L 12/14/19 19:08 Pulse 55 L 12/14/19 19:08 Resp 22 H 12/14/19 22:42 BP 128/59 12/14/19 19:08 Pulse Ox 98 12/14/19 22:42 Weight last 48 hrs Weight 113.398 kg Physical Exam Narrative: EXAM NARRATIVE: Head To toe examination Patient is sitting in her bed with discomfort due to right flank pain Right CVA tenderness positive Abdomen does not reveal any sign of peritonitis, bowel sounds sluggish S1, S2 no signs of heart failure Lungs are clear to auscultation Neurologically nonfocal exam EOMI, KHUSHBOORLA Agitated because of her pain Appropriate mood and affect Skin does not show signs of ischemia gangrene ulcer Patient looks dehydrated with flushed skin Pertinent negatives No peritonitis Data : 12/14/19 19:22 12/14/19 19:22 A&P Assessment and plan (1) Pyelonephritis of right kidney: Status: Acute (2) Nausea and vomiting: Status: Chronic Qualifiers: Vomiting type: unspecified Vomiting Intractability: non-intractable Qualified Code(s): R11.2 - Nausea with vomiting, unspecified (3) Morbid obesity: Status: Acute (4) Tobacco abuse: Status: Acute (5) Hypertension: Status: Chronic Qualifiers: Hypertension type: essential hypertension Qualified Code(s): I10 - Essential (primary) hypertension Additional A&P Information Right pyelonephritis CVA tenderness positive Awaiting CT abdomen with and without contrast Leukocytosis without active signs of sepsis, she is afebrile, non-acidotic, Intractable nausea vomiting Ceftriaxone started in the ER Normal saline with potassium supplementation to be started Obtain urine culture Intractable nausea vomiting requiring IV fluid resuscitation Hypo-kalemia: Repleted Active smoker Willing to use nicotine replacement therapy Morbid obesity: Counseled on smoking cessation and maintaining appropriate BMI Full code DVT prophylaxis: Lovenox Full liquid diet Attestations Medical Necessity Statement*: Patient is requiring more than 2 nights in the hospital currently requiring IV fluids and antibiotics because of intractable nausea vomiting, I am awaiting CT abdomen and pelvis at the moment Monitor for signs of sepsis Time Spent in Patient Care: 50 Coding Level of Care Code 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
--- NOTE | 2019-12-14 22:51 | CTR_ITS ---
PROCEDURE INFORMATION: Exam: CT Abdomen And Pelvis Without And With Contrast Exam date and time: 12/14/2019 11:00 PM Age: 44 years old Clinical indication: Pain and condition or disease; Other: Pyelonephritis; Abdominal pain; Generalized; Prior surgery; Surgery type: Cholecystectomy, btl; Additional info: Pyelonephriis TECHNIQUE: Imaging protocol: Computed tomography of the abdomen and pelvis without and with intravenous contrast. Radiation optimization: All CT scans at this facility use at least one of these dose optimization techniques: automated exposure control; mA and/or kV adjustment per patient size (includes targeted exams where dose is matched to clinical indication); or iterative reconstruction. Contrast material: OMNI 300; Contrast volume: 95 ml; Contrast route: 20G; Other contrast: Oral, omni 300, 25; COMPARISON: CT abdomen pelvis w con* [id number] 10/24/2019 5:02 PM . 10/20/2019. RADIATION DOSE METRICS: Total DLP: 2917.74 mGy-cm FINDINGS: Lungs: Limited assessment lung bases without visible evidence of active cardiopulmonary process. Liver: Unremarkable. No mass. Gallbladder and bile ducts: Status post cholecystectomy. Pancreas: Unremarkable. No ductal dilation. Spleen: Unremarkable. No splenomegaly. Adrenals: Normal. No mass. Kidneys and ureters: Kidneys unremarkable for age. No hydronephrosis or perinephric fluid. No visible nephrolithiasis or nephrocalcinosis. No evidence for pyelonephritis this evaluation. Stomach and bowel: Diverticulosis coli without visible evidence diverticulitis. Nonobstructive bowel pattern. No visible adynamic or reactive ileus. Appendix: The appendix is noninflamed. Intraperitoneal space: Unremarkable. No free air. No significant fluid collection. Vasculature: Unremarkable. No abdominal aortic aneurysm. Lymph nodes: Unremarkable. No enlarged lymph nodes. Bladder: Unremarkable as visualized. Reproductive: Again note of an enlarged bulky uterus with uterine leiomyomata. Cystic degeneration of uterine leiomyomata evident. No interval change. Bones/joints: No visible active osseous pathology. Soft tissues: Obesity. CT/CT abdomen pelvis wo/w [id number] IMPRESSION: 1. No visible evidence of active or acute abdominal or pelvic pathologic process. 2. No visible evidence for pyelonephritis this examination. 3. Diverticulosis coli without evidence for diverticulitis. 4. Again note of an enlarged bulky uterus with uterine leiomyomata. Cystic degeneration of uterine leiomyomata evident. No interval change. Radiation Dose CTDIVOL = (mGy): DLP = 2917.74 (mGy-cm)
[2019-12-14] MEDS: iohexol 300 mg/mL 50 mL Btl PO (23:04)
[2019-12-14] MEDS: promethazine 25 mg/mL SDV 1 mL IM (23:21)
[2019-12-14] MEDS: iohexol 300 mg/mL 100 mL Btl IV (23:52)
[2019-12-15] VITALS (12 sets, daily range): BP systolic 113–200; BP diastolic 75–118; PULSE 51–63; RESP 16–22; TEMP 36.7–37.1; O2SAT 95–99
--- NOTE | 2019-12-15 00:58 | PC.NURSE ---
I agree with this assessment of this patient
[2019-12-15] MEDS: sodium chlor 0.9% + KCl 20 mEq 20 MEQ/1,000 ML BAG 75 MEQ IV ×2 (01:22→17:12)
[2019-12-15] MEDS: enoxaparin 40 mg/0.4 mL Syringe SUBCUT ×2 (01:23→23:36)
[2019-12-15] MEDS: cefTRIAXone 1,000 MG in sodium chloride 0.9% (plus) 50 ML 100 MG IV (01:23)
[2019-12-15] MEDS: metoclopramide 5 mg/mL SDV 2 mL IVP ×2 (03:49→13:23)
[2019-12-15] MEDS: HYDROmorphone 1 mg/mL INJ 1 mL SUBCUT (03:49)
[2019-12-15 05:01] LABS: Basophils # 0.1 10^3/uL (0.0-0.1); Basophils % 0.4 %; Hematocrit 45.9 % (37.0-47.0); Hemoglobin 15.1 g/dL (11.5-15.3); Lymphocytes # 2.3 10^3/uL (0.8-4.8); Lymphocytes % 17.3 %; Mean Corpuscular HGB Conc 32.9 g/dL (30.0-36.0); Mean Corpuscular Hemoglobin 29.8 pg (28.0-34.0); Mean Corpuscular Volume 90.5 fL (81-99); Mean Platelet Volume 9.1 fL (7.4-10.4); Monocytes # 1.2 10^3/uL (0.2-0.9); Monocytes % 8.9 %; Neutrophils # 9.8 10^3/uL (1.8-7.7); Neutrophils % 72.9 %; Nucleated Red Blood Cells % 0 %; Platelet Count 335 10^3/cmm (130-400); Red Blood Count 5.07 10^6/uL (4.1-5.3); Red Cell Distribution Width 13.7 % (12.1-15.1); White Blood Count 13.5 10^3/uL (4.0-10.0)
[2019-12-15 05:29] LABS: Anion Gap 15.6 (5-19); Blood Urea Nitrogen 19 mg/dL (6-20); Calcium 9.9 mg/dL (8.5-10.5); Carbon Dioxide 28 mmol/L (22-29); Chloride 96 mmol/L (98-107); Glomerular Filtration Rate 60.2 mL/min (90-130); Glucose 116 mg/dL (65-115); Osmolality Calculated 279 mOsm/kg (285-295); Potassium 3.6 mmol/L (3.5-5.1); Sodium 136 mmol/L (136-145)
[2019-12-15 05:53] LABS: Amphetamines Screen Urine Negative (Negative); Barbiturates Screen Urine Negative (Negative); Benzodiazepines Screen Urine Negative (Negative); Cocaine Screen Urine Negative (Negative); Opiate Screen Urine Negative (Negative); PCP Screen Urine Negative (Negative); THC Screen Urine Positive (Negative)
[2019-12-15] MEDS: promethazine 25 mg/mL SDV 1 mL IM ×2 (08:30→17:06)
[2019-12-15] MEDS: HYDROmorphone 1 mg/mL INJ 1 mL IVP ×3 (08:57→17:11)
--- NOTE | 2019-12-15 10:21 | PC.CHAP ---
Pastoral Care Encounter/Spiritual Assessment Type of Contact [] Declined merchandise director visit [] Patient/Family/Request visit [] Outpatient visit [] Follow-up visit [] Physician referral [] Code/Alert [x] Routine visit [] Staff referral [] Actively dying [] Patient sleeping [] Family support [] [] Out of room [] Palliative care [] [] Receiving care in room [] Pre-surgical visit [] Trauma [] Long length of stay [] ICU visit [] Other: Relational/Emotional Strength [] Patient feels connected with others/family/visitors/staff [] Distress [] Loneliness/isolation [] Abandonment Spirituality of Patient [] Person of [place] [] Attends Islam of their [place] [] Believes in Prayer [] Reads Bible or Zoroastrian materials [] There are Spiritual issues to be addressed 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 [x] Prayer [] Active listening [] Non-anxious presence [] Spiritual/emotional support [] Crisis/trauma care [] Spiritual counseling [] Bereavement support [] Provided bereavement packet [] Provided Bible/devotional materials [] Provided toy/stuffed animal, coloring book to patient or family member [] Provided Communion [] Anointing/[place] [] Salvation [x] Completed spiritual assessment [] Other: Impact on Illness or Injury [] Angry [] Fearful [] Anxious [] Often cries [] Exhaustion [] Unable to work [] Unable to attend buddhist [] Unable to walk/stand [] Unable to read [] Unable to drive [] Unable to eat/drink [] Unable to sleep [] Unable to be with family [] Patient intubated [] Other: Summary room dark. Patient resting. Welcomed prayer. Time spent with patient 10 min
[2019-12-15] MEDS: lidocaine 2% viscous 15 ML, aluminum-mag hydrox-simethicon 30 ML, sucralfate oral liq 1 GM PO (11:10)
--- NOTE | 2019-12-15 12:00 | P.PN_ITS ---
Subjective Subjective: Interval history: Morning patient states that she still feels a bit nauseous, has some epigastric discomfort, cannot keep down clear liquids, she is wondering if her uterine fibroid is causing all her symptoms, there are plans on her having a hysterectomy in the next few weeks through Dr. Lau's office, no fevers, no chills, no chest pain, shortness of breath, has flank pain Vitals/I&O/Wt Last Vital Signs Temp 98.3 F 12/15/19 08:00 Pulse 60 12/15/19 08:00 Resp 22 H 12/15/19 08:57 BP 200/98 12/15/19 08:00 Pulse Ox 99 12/15/19 08:00 12/14/19 12/15/19 12/15/19 22:59 06:59 14:59 Output Total 300 / 300 Balance -300 / -300 Weight last 48 hrs Weight 113.398 kg Physical Exam Const: COMMON NORMALS: no acute distress and patient oriented x3 HENMT: COMMON NORMALS: normocephalic HEAD & SCALP: normocephalic Neck/C-Spine: COMMON NORMALS: no JVD Resp: COMMON NORMALS: normal respiratory effort, No retractions, No use of accessory muscles and clear to auscultation bilaterally AUSCULTATION: clear to auscultation bilaterally Cardio: COMMON NORMALS: no JVD, regular rate, regular rhythm, S1 normal heart sound present and S2 normal heart sound present RATE: regular rate RHYTHM: regular rhythm HEART SOUNDS: S1 normal heart sound present and S2 normal heart sound present GI: COMMON NORMALS: Normal to inspection, nondistended, normoactive bowel sounds present, Soft to palpation, non-tender, No hepatosplenomegaly present, no masses and no bruits PALPATION: Yes Soft to palpation and Yes No hepatospleno megaly present Extremity: COMMON NORMALS: capillary refill normal, no clubbing, cyanosis or edema, no calf tenderness and no pedal edema Neuro: COMMON NORMALS: patient oriented x3 Psych: COMMON NORMALS: mental status grossly normal Data : 12/15/19 04:50 12/15/19 04:50 A&P Assessment and plan (1) Pyelonephritis of right kidney: Status: Acute (2) Nausea and vomiting: Status: Chronic Qualifiers: Vomiting type: unspecified Vomiting Intractability: non-intractable Qualified Code(s): R11.2 - Nausea with vomiting, unspecified (3) Morbid obesity: Status: Acute (4) Tobacco abuse: Status: Acute (5) Hypertension: Status: Chronic Qualifiers: Hypertension type: essential hypertension Qualified Code(s): I10 - Essential (primary) hypertension (6) Uterine fibroid: -CT abdomen shows enlarged bulky uterus, with uterine leiomyomata, cystic degeneration of uterine leiomyomata evident, no interval change -Patient states that she gets lower abdominal pain at times, I am wondering if this is playing into patient's overall symptomatology -States that she also gets constipated, start MiraLAX, Colace daily -Dr. Rowley sees patient as outpatient, patient was on Lupron therapy, plans are for performing a hysterectomy sometime in the next few weeks Status: Acute Qualifiers: Uterine leiomyoma location: intramural, submucous, and subserous Qualified Code(s): D25.1 - Intramural leiomyoma of uterus; D25.0 - Submucous leiomyoma of uterus; D25.2 - Subserosal leiomyoma of uterus Additional A&P Information Right pyelonephritis CVA tenderness positive CT scan of the abdomen does not show radiographic evidence of pyelonephritis Leukocytosis without active signs of sepsis, she is afebrile, non-acidotic, Intractable nausea vomiting Continue Rocephin Normal saline with potassium supplementation to be started Obtain urine culture Reglan, promethazine for nausea GI cocktail for epigastric discomfort Intractable nausea vomiting requiring IV fluid resuscitation Hypo-kalemia: Repleted Active smoker Willing to use nicotine replacement therapy Morbid obesity: Counseled on smoking cessation and maintaining appropriate BMI Full code DVT prophylaxis: Lovenox Full liquid diet Attestations Medical Necessity Statement*: She requested hospitalization for right pyelonephritis, intractable nausea, vomiting, dehydration Coding Level of Care Code 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
[2019-12-16] VITALS (11 sets, daily range): BP systolic 116–183; BP diastolic 66–110; PULSE 52–69; RESP 16–20; TEMP 36.6–36.8; O2SAT 96–99
[2019-12-16] MEDS: sodium chlor 0.9% + KCl 20 mEq 20 MEQ/1,000 ML BAG 75 MEQ IV ×2 (06:55→20:41)
[2019-12-16] MEDS: HYDROmorphone 1 mg/mL INJ 1 mL IVP ×4 (07:27→20:40)
[2019-12-16] MEDS: promethazine 25 mg/mL SDV 1 mL IM (07:28)
[2019-12-16] MEDS: cefTRIAXone 1,000 MG in sodium chloride 0.9% (plus) 50 ML 100 MG IV (07:29)
[2019-12-16] MEDS: polyethylene glycol 3350 Pkt 17 gm PO (08:57)
[2019-12-16] MEDS: docusate sodium 100 mg Capsule PO (08:58)
[2019-12-16] MEDS: lidocaine 2% viscous 15 ML, aluminum-mag hydrox-simethicon 30 ML, sucralfate oral liq 1 GM PO (10:27)
[2019-12-16] MEDS: ondansetron 2 mg/ML SDV 2 mL 4 MG IVP ×2 (10:47→15:57)
[2019-12-16] MEDS: metoclopramide 5 mg/mL SDV 2 mL IVP ×2 (12:04→20:40)
--- NOTE | 2019-12-16 12:50 | PM.PN ---
Subjective Subjective: Interval history: This morning patient states that she is not any better, still feels nauseous, is having back pain, chest pain, abdominal pain, epigastric pain, she is really worried about her urine leiomyoma being the cause of all her symptoms, is wondering why we just do not perform surgery on her now Vitals/I&O/Wt Last Vital Signs Temp 98.1 F 12/16/19 12:14 Pulse 58 L 12/16/19 12:14 Resp 18 12/16/19 12:14 BP 166/91 12/16/19 12:14 Pulse Ox 98 12/16/19 12:14 12/15/19 12/16/19 12/16/19 22:59 06:59 14:59 Intake Total 300 / 1300 1240 / 2540 Output Total 1000 / 1000 200 / 1200 Balance -700 / 300 1040 / 1340 Weight last 48 hrs Weight 113.398 kg Physical Exam Const: COMMON NORMALS: no acute distress and patient oriented x3 HENMT: COMMON NORMALS: normocephalic HEAD & SCALP: normocephalic Neck/C-Spine: COMMON NORMALS: no JVD Resp: COMMON NORMALS: normal respiratory effort, No retractions, No use of accessory muscles and clear to auscultation bilaterally AUSCULTATION: clear to auscultation bilaterally Cardio: COMMON NORMALS: no JVD, regular rate, regular rhythm, S1 normal heart sound present and S2 normal heart sound present RATE: regular rate RHYTHM: regular rhythm HEART SOUNDS: S1 normal heart sound present and S2 normal heart sound present GI: COMMON NORMALS: Normal to inspection, nondistended, normoactive bowel sounds present, Soft to palpation, non-tender, No hepatosplenomegaly present, no masses and no bruits PALPATION: Yes Soft to palpation and Yes No hepatosplenomegaly present Extremity: COMMON NORMALS: capillary refill normal, no clubbing, cyanosis or edema, no calf tenderness and no pedal edema Neuro: COMMON NORMALS: patient oriented x3 Psych: COMMON NORMALS: mental status grossly normal Data : 12/15/19 04:50 12/15/19 04:50 A&P Assessment and plan (1) Pyelonephritis of right kidney: Status: Acute (2) Nausea and vomiting: Status: Chronic Qualifiers: Vomiting type: unspecified Vomiting Intractability: non-intractable Qualified Code(s): R11.2 - Nausea with vomiting, unspecified (3) Morbid obesity: Status: Acute (4) Tobacco abuse: Status: Acute (5) Hypertension: Status: Chronic Qualifiers: Hypertension type: essential hypertension Qualified Code(s): I10 - Essential (primary) hypertension (6) Uterine fibroid: -CT abdomen shows enlarged bulky uterus, with uterine leiomyomata, cystic degeneration of uterine leiomyomata evident, no interval change -Patient states that she gets lower abdominal pain at times, I am wondering if this is playing into patient's overall symptomatology -States that she also gets constipated, start MiraLAX, Colace daily -Dr. Loo on sees patient as outpatient, patient was on Lupron therapy, plans are for performing a hysterectomy sometime in the next few weeks Status: Acute Qualifiers: Uterine leiomyoma location: intramural, submucous, and subserous Qualified Code(s): D25.1 - Intramural leiomyoma of uterus; D25.0 - Submucous leiomyoma of uterus; D25.2 - Subserosal leiomyoma of uterus Additional A&P Information Right pyelonephritis CVA tenderness positive CT scan of the abdomen does not show radiographic evidence of pyelonephritis Leukocytosis without active signs of sepsis, she is afebrile, non-acidotic, Intractable nausea vomiting Continue Rocephin Normal saline with potassium supplementation\ Obtain urine culture Reglan, promethazine for nausea GI cocktail for epigastric discomfort Intractable nausea vomiting requiring IV fluid resuscitation Hypo-kalemia: Repleted Active smoker Willing to use nicotine replacement therapy Morbid obesity: Counseled on smoking cessation and maintaining appropriate BMI Full code DVT prophylaxis: Lovenox Full liquid diet Attestations Medical Necessity Statement*: Patient requires hospitalization for intractable nausea, vomiting, pyelonephritis right kidney, uterine leiomyoma Coding Level of Care Code Acute Cell Technician for [facility] Diagnoses Pyelonephritis of right kidney N12 Nausea and vomiting R11.2 Vomiting type: unspecified Vomiting Intractability: non-intractable Morbid obesity E66.01 Tobacco abuse Z72.0 Hypertension I10 Hypertension type: essential hypertension Uterine fibroid D25.1; D25.0; D25.2 Uterine leiomyoma location: intramural, submucous, and subserous
[2019-12-16 13:16] LABS: Basophils # 0.1 10^3/uL (0.0-0.1); Basophils % 0.7 %; Eosinophils % 0.1 %; Hematocrit 45.9 % (37.0-47.0); Hemoglobin 15.1 g/dL (11.5-15.3); Lymphocytes # 2.2 10^3/uL (0.8-4.8); Lymphocytes % 21.3 %; Mean Corpuscular HGB Conc 32.9 g/dL (30.0-36.0); Mean Corpuscular Hemoglobin 29.8 pg (28.0-34.0); Mean Corpuscular Volume 90.7 fL (81-99); Mean Platelet Volume 9.4 fL (7.4-10.4); Monocytes # 0.7 10^3/uL (0.2-0.9); Monocytes % 7.1 %; Neutrophils # 7.2 10^3/uL (1.8-7.7); Neutrophils % 70.3 %; Nucleated Red Blood Cells % 0 %; Platelet Count 294 10^3/cmm (130-400); Red Blood Count 5.06 10^6/uL (4.1-5.3); Red Cell Distribution Width 13.1 % (12.1-15.1); White Blood Count 10.3 10^3/uL (4.0-10.0)
[2019-12-16 13:46] LABS: Alanine Aminotransferase 31 U/L (0-33); Albumin Level 4.1 g/dL (3.5-5.2); Alkaline Phosphatase 48 IU/L (35-105); Anion Gap 16.8 (5-19); Aspartate Amino Transferase 29 U/L (0-32); Blood Urea Nitrogen 13 mg/dL (6-20); Calcium 8.9 mg/dL (8.5-10.5); Carbon Dioxide 24 mmol/L (22-29); Chloride 99 mmol/L (98-107); Globulin 3.2 g/dL (1.3-4.6); Glomerular Filtration Rate 77.9 mL/min (90-130); Glucose 111 mg/dL (65-115); Osmolality Calculated 279 mOsm/kg (285-295); Potassium 3.8 mmol/L (3.5-5.1); Sodium 136 mmol/L (136-145); Total Bilirubin 0.5 mg/dL (0.15-1.2); Total Protein 7.3 g/dL (6.6-8.7)
[2019-12-16] MEDS: labetalol 5 mg/mL SDV 20mL 20 MG IVP (15:55)
--- NOTE | 2019-12-16 19:57 | NUR.SHIFT ---
Pt is A&Ox4, all extremities move fluidly, VS WNL, abdomen is tender in left lower quadrant, no other needs voiced at this time, will continue to monitor.
--- NOTE | 2019-12-16 20:50 | PC.NURSE ---
BP Pt. BP elevated on automatic machine, patient states that she is in pain and that she just received medication. Will recheck patient BP at 2130.
[2019-12-17] VITALS (9 sets, daily range): BP systolic 158–194; BP diastolic 62–120; PULSE 56–65; RESP 16–20; TEMP 36.6–36.8; O2SAT 93–98
[2019-12-17] MEDS: HYDROmorphone 1 mg/mL INJ 1 mL IVP ×3 (00:27→08:42)
[2019-12-17] MEDS: promethazine 25 mg/mL SDV 1 mL IM ×2 (00:28→07:57)
--- NOTE | 2019-12-17 00:40 | PC.NURSE ---
Medication Waste Pulled dilaudid and phenergan, before I could label them the two meds got mixed up. I wasted both medications as witnessed by Gabriela AYOUB. Repulled medications and labeled both of them for safe administration.
[2019-12-17] MEDS: lidocaine 2% viscous 15 ML, aluminum-mag hydrox-simethicon 30 ML, sucralfate oral liq 1 GM PO (03:37)
[2019-12-17] MEDS: ondansetron 2 mg/ML SDV 2 mL 4 MG IVP ×2 (04:32→12:49)
[2019-12-17] MEDS: enoxaparin 40 mg/0.4 mL Syringe SUBCUT (05:54)
[2019-12-17 06:06] LABS: Basophils # 0.1 10^3/uL (0.0-0.1); Basophils % 0.5 %; Eosinophils # 0.1 10^3/uL (0.0-0.8); Eosinophils % 0.5 %; Hematocrit 44.7 % (37.0-47.0); Hemoglobin 14.8 g/dL (11.5-15.3); Lymphocytes # 2.4 10^3/uL (0.8-4.8); Lymphocytes % 21.9 %; Mean Corpuscular HGB Conc 33.1 g/dL (30.0-36.0); Mean Corpuscular Hemoglobin 29.5 pg (28.0-34.0); Mean Corpuscular Volume 89.2 fL (81-99); Mean Platelet Volume 9.6 fL (7.4-10.4); Monocytes % 9.2 %; Neutrophils # 7.3 10^3/uL (1.8-7.7); Neutrophils % 67.5 %; Nucleated Red Blood Cells % 0 %; Platelet Count 308 10^3/cmm (130-400); Red Blood Count 5.01 10^6/uL (4.1-5.3); Red Cell Distribution Width 12.8 % (12.1-15.1); White Blood Count 10.8 10^3/uL (4.0-10.0)
--- NOTE | 2019-12-17 06:14 | PC.NURSE ---
END OF SHIFT REPORT Pt is A&Ox4, reports pain as 0/10, I had to order another GI cocktail for her, which seemed to work very well. She did require Dilaudid every 4 hours throughout the night, she has had zofran, phenergan, and reglan for nausea. Has vomited 1 time throughout the night. No falls, no other needs voiced.
[2019-12-17 06:19] LABS: Alanine Aminotransferase 36 U/L (0-33); Albumin Level 4.2 g/dL (3.5-5.2); Alkaline Phosphatase 50 IU/L (35-105); Anion Gap 17.4 (5-19); Aspartate Amino Transferase 31 U/L (0-32); Blood Urea Nitrogen 10 mg/dL (6-20); Calcium 9.8 mg/dL (8.5-10.5); Carbon Dioxide 26 mmol/L (22-29); Chloride 96 mmol/L (98-107); Creatinine Clr Calc Pharmacy 131.0444; Globulin 3.5 g/dL (1.3-4.6); Glomerular Filtration Rate 90.9 mL/min (90-130); Glucose 101 mg/dL (65-115); Magnesium 2.2 mg/dL (1.7-2.3); Osmolality Calculated 278 mOsm/kg (285-295); Phosphorus 3.2 mg/dL (2.5-4.5); Potassium 3.4 mmol/L (3.5-5.1); Sodium 136 mmol/L (136-145); Total Bilirubin 0.6 mg/dL (0.15-1.2); Total Protein 7.7 g/dL (6.6-8.7)
[2019-12-17] MEDS: cefTRIAXone 1,000 MG in sodium chloride 0.9% (plus) 50 ML 100 MG IV (08:02)
[2019-12-17] MEDS: sodium chlor 0.9% + KCl 20 mEq 20 MEQ/1,000 ML BAG 75 MEQ IV (08:02)
[2019-12-17] MEDS: metoclopramide 5 mg/mL SDV 2 mL IVP (08:43)
[2019-12-17] MEDS: LORazepam 2 mg/mL INJ 1 mL 1 MG IVP (10:20)
[2019-12-17] MEDS: pantoprazole DR 40 mg Tablet PO (10:21)
[2019-12-17] MEDS: lisinopril 20 mg Tablet PO (10:21)
--- NOTE | 2019-12-17 11:27 | P.DS_ITS ---
Discharge Providers Date of Admission: 12/14/19 23:01 Date of Discharge: December 17, 2019 Attending Provider at Admission: John Carrillo MD Attending Provider at Discharge: Tejinder Lozano MD Primary Care Provider: Audra Amaya DO Diagnoses at Discharge Discharge Diagnosis (1) Pyelonephritis of right kidney: Status: Acute (2) Nausea and vomiting: Status: Chronic Qualifiers: Vomiting type: unspecified Vomiting Intractability: non-intractable Qualified Code(s): R11.2 - Nausea with vomiting, unspecified (3) Morbid obesity: Status: Acute (4) Tobacco abuse: Status: Acute (5) Hypertension: Status: Chronic Qualifiers: Hypertension type: essential hypertension Qualified Code(s): I10 - Essential (primary) hypertension (6) Uterine fibroid: Status: Acute Qualifiers: Uterine leiomyoma location: intramural, submucous, and subserous Qualified Code(s): D25.1 - Intramural leiomyoma of uterus; D25.0 - Submucous leiomyoma of uterus; D25.2 - Subserosal leiomyoma of uterus Reason for Visit Reason for Visit: Reason For Visit: ABD PAIN, N/V Hospital Course Discharge Summary: China Batres is a 44 year old female -0-2-1 with a past medical history of GERD, gastritis, duodenitis, sinus bradycardia, anemia, history of abnormal uterine bleeding with uterine fibroids (leiomyoma) who presents to the emergency room due to complaints of nausea, vomiting, abdominal pain, flank pain Patient was admitted for nausea, vomiting, abdominal pain, flank pain secondary to right pyelonephritis and a uterine leiomyoma. Patient received IV hydration, nausea control, pain control, IV antibiotics, patient has had very slow clinical progress. Patient did not have any CT evidence of pyelonephritis, she had no significant urinary complaints but I have discharged her on 5 remaining days of Bactrim. I believe that likely patient's's's overall symptomatology is seconda ry to uterine fibroids, she has been on Lupron therapy for the last few months, on CT her uterine fibroid has not significantly decreased in size, no cystic degeneration, and there are plans on surgery in the next few weeks through Dr. Lau. I did speak to Dr. Yeager, over the weekend, who agreed that patient should follow-up closely with Dr. Lau as outpatient for consideration for surgery. On discharge patient has been discharged on home [place], Zofran, Ativan, I have added Reglan, and MiraLAX to her regimen. Patient was advised to drink plenty of electrolyte balance fluids, and to follow-up with Dr. Lau early next week. Physical Exam Const: COMMON NORMALS: no acute distress and patient oriented x3 HENMT: COMMON NORMALS: normocephalic HEAD & SCALP: normocephalic Neck/C-Spine: COMMON NORMALS: no JVD Resp: COMMON NORMALS: normal respiratory effort, No retractions, No use of accessory muscles and clear to auscultation bilaterally AUSCULTATION: clear to auscultation bilaterally Cardio: COMMON NORMALS: no JVD, regular rate, regular rhythm, S1 normal heart sound present and S2 normal heart sound present RATE: regular rate RHYTHM: regular rhythm HEART SOUNDS: S1 normal heart sound present and S2 normal heart sound present GI: COMMON NORMALS: Normal to inspection, nondistended, normoactive bowel sounds present, Soft to palpation, non-tender, No hepatosplenomegaly present, no masses and no bruits PALPATION: Yes Soft to palpation and Yes No hepatosplenomegaly present Extremity: COMMON NORMALS: capillary refill normal, no clubbing, cyanosis or edema, no calf tenderness and no pedal edema Neuro: COMMON NORMALS: patient oriented x3 Psych: COMMON NORMALS: mental status grossly normal Discharge Data Data Completed and Pending: Completed Studies During Hospitalization Category Date Time Status CT abdomen pelvis wo/w [address] Urgent Cat Scan 12/14/19 22:51 Completed Pending at discharge Category Date Time Status Complete Blood Co unt w/Auto AM LABS Lab 12/18/19 04:00 Ordered Complete Blood Co unt w/Auto AM LABS Lab 12/19/19 04:00 Ordered Comprehensive Met abolic Panel AM LA BS Lab 12/18/19 04:00 Ordered Comprehensive Met abolic Panel AM LA BS Lab 12/19/19 04:00 Ordered Magnesium AM LABS Lab 12/18/19 04:00 Ordered Magnesium AM LABS Lab 12/19/19 04:00 Ordered Phosphorus AM LAB S Lab 12/18/19 04:00 Ordered Phosphorus AM LAB S Lab 12/19/19 04:00 Ordered Labs from last 24 hours 12/17/19 12/17/19 12/16/19 04:59 04:59 01:00 WBC 10.8 H RBC 5.01 Hgb 14.8 Hct 44.7 MCV 89.2 MCH 29.5 MCHC 33.1 RDW 12.8 Plt Count 308 MPV 9.6 Neut % (Auto) 67.5 Lymph % (Auto) 21.9 [place] % (Auto) 9.2 Eos % (Auto) 0.5 Baso % (Auto) 0.5 Neut # (Auto) 7.3 Lymph # (Auto) 2.4 [place] # (Auto) 1.0 H Eos # (Auto) 0.1 Baso # (Auto) 0.1 Nucleated RBC % (a uto) 0 Nucleated RBCs # 0.0 Sodium 136 136 Potassium 3.4 L 3.8 Chloride 96 L 99 Carbon Dioxide 26 24 Anion Gap 17.4 16.8 BUN 10 13 Creatinine 0.7 0.8 GFR Calculation 90.9 77.9 L Glucose 101 111 Calculated Osmolal ity 278 L 279 L Calcium 9.8 8.9 Phosphorus 3.2 Magnesium 2.2 Total Bilirubin 0.6 0.5 AST 31 29 ALT 36 H 31 Alkaline Phosphata se 50 48 Total Protein 7.7 7.3 Albumin 4.2 4.1 Globulin 3.5 3.2 12/16/19 01:00 WBC 10.3 H RBC 5.06 Hgb 15.1 Hct 45.9 MCV 90.7 MCH 29.8 MCHC 32.9 RDW 13.1 Plt Count 294 MPV 9.4 Neut % (Auto) 70.3 Lymph % (Auto) 21.3 [place] % (Auto) 7.1 Eos % (Auto) 0.1 Baso % (Auto) 0.7 Neut # (Auto) 7.2 Lymph # (Auto) 2.2 [place] # (Auto) 0.7 Eos # (Auto) 0.0 Baso # (Auto) 0.1 Nucleated RBC % (a uto) 0 Nucleated RBCs # 0.0 Sodium Potassium Chloride Carbon Dioxide Anion Gap BUN Creatinine GFR Calculation Glucose Calculated Osmolal ity Calcium Phosphorus Magnesium Total Bilirubin AST ALT Alkaline Phosphata se Total Protein Albumin Globulin Vitals: Last Vital Signs Temp 97.8 F 12/17/19 11:07 Pulse 64 12/17/19 11:07 Resp 20 H 12/17/19 11:07 BP 184/96 12/17/19 11:07 Pulse Ox 93 12/17/19 11:07 Discharge Plan Discharge Patient Disposition: Home, Self-Care Condition: Stable Prescriptions: New Miralax 17 gram Powder In Packet 17 g PO DAILY 30 Days Qty: 30 RF: 0 lisinopril 20 mg Tablet 20 mg PO DAILY 30 Days Qty: 30 RF: 0 Reglan 5 mg tablet 5 mg PO Q8H PRN (Reason: nausea and vomiting) 7 Days Qty: 21 RF: 0 sulfamethoxazole-trimethoprim [Bactrim DS] 800-160 mg tablet 1 tab PO BIDWM 5 Days Qty: 10 RF: 0 Continued Protonix [address] for susp in packet 40 mg PO DAILY RF: 0 hydroxyzine HCl 50 mg tablet 100 mg PO .bedtime PRN (Reason: insomnia) RF: 0 atenolol 25 mg tablet 25 mg PO DAILY Qty: 90 RF: 0 Zofran 8 mg tablet 8 mg PO Q8H PRN (Reason: Nausea) 30 Days Qty: 90 RF: 1 promethazine 25 mg tablet 25 mg PO .po q hs PRN (Reason: nausea) Qty: 90 RF: 0 hydrocodone-acetaminophen 7.5-325 mg/15 mL solution 7.5 ml PO BID PRN (Reason: pain) 30 Days Qty: 450 RF: 0 lorazepam [Ativan] 0.5 mg tablet 0.5 mg PO BID PRN (Reason: nausea and vomiting) Qty: 60 RF: 0 cetirizine 10 mg capsule 10 mg PO DAILY RF: 0 Discharge Orders: Discharge Order (Routine); Ordered 12/17/19 Ordered By: Tejinder Lozano Referrals: Alexandre Lau MD [Physician] - 1-3 days Discharge Diet: Regular Discharge Activity: Resume usual activity Discharge Attestations Time Spent in Discharge Care*: less than 30 min Quality Metrics Clinical Quality Measures During this hospital stay, did patient experience: None Coding Level of Care Code Acute Supercharger Mechanic for Chg Fwd Diagnoses Pyelonephritis of right kidney N12 Nausea and vomiting R11.2 Vomiting type: unspecified Vomiting Intractability: non-intractable Morbid obesity E66.01 Tobacco abuse Z72.0 Hypertension I10 Hypertension type: essential hypertension Uterine fibroid D25.1; D25.0; D25.2 Uterine leiomyoma location: intramural, submucous, and subserous
[2019-12-17] MEDS: HYDROcodone-acetaminophen 5-325 mg Tablet 1 TAB PO (12:48)
== END 2019-12-17 13:45 | disposition home or self-care (01) | DRG 690 ==
LOC: ER 20:21 → MEDSURG 12-15 00:51
PROVIDERS: Emergency Medicine; Admitting Provider Internal Medicine; Family Provider Family Medicine; PCP Family Medicine; Visit Provider Family Medicine
DX: N10 Acute pyelonephritis (principal); Z68.41 Body mass index [BMI] 40.0-44.9, adult; K21.9 Gastro-esophageal reflux disease without esophagitis; I10 Essential (primary) hypertension; E66.01 Morbid (severe) obesity due to excess calories; F17.210 Nicotine dependence, cigarettes, uncomplicated; E86.0 Dehydration; E87.6 Hypokalemia; D25.1 Intramural leiomyoma of uterus
CPT/HCPCS: 12345; 36415; 74178; 80048; 80053; 80306; 81001; 83690; 83735; 84100; 84703; 85025; 96372; 96375; 99283; J0696; J1170; J1650; J2060; J2270; J2405; J2550; J2765; J3490; J7030; Q9967

== ENCOUNTER 2019-12-31 19:52 | Emergency (ER) | payer SELFPAY ==
--- NOTE | 2019-12-31 19:58 | ED_ITS ---
HPI - Abdominal Pain General: Chief Complaint: Abdominal Pain Stated Complaint: abd pain Time Seen by Provider: 12/31/19 19:57 Source: patient Mode of arrival: ambulatory Limitations: no limitations History of Present Illness: HPI narrative: Patient comes in with right flank pain. Patient states that she has a history of uterine fibroids that cause her pain and abnormal bleeding at times. Patient reports for last 2 days she has had an exacerbation of this pain but is also had pain in her right flank area. Patient reports some more than normal bleeding for her but not excessive bleeding. Patient is on Depo-Provera and Depo-Lupron for uterine fibroids. Patient is to have a hysterectomy in about 2 weeks. Patient appears well. Patient appears in moderate pain. Patient come in by ambulance and had received 100 mcg of fentanyl in route. Patient has CT scan of the abdomen pelvis with and without contrast on 13 December that was without any sign of acute disease. Patient did note some diverticulosis. On October 23 it was noted that patient had some mild pyelonephritis on the right side, on a another CT scan of the abdomen and pelvis. MD elicited complaint: flank pain Associated Symptoms: Reports nausea Related Data: Date of Last Menstrual Period: 07/19/19 Review of Systems General: Reports: 10 or more systems reviewed and unremarkable except in HPI and below GI: Reports: abdominal pain and nausea [facility] ED PFSH: Medical History (Updated 12/31/19 @ 22:59 by DEREK Pascal) GERD (gastroesophageal reflux disease) Hypertension Morbid obesity Surgical History S/P cholecystectomy (~2014) laparoscopic S/P dilatation and curettage (~1996) Tubal ligation status (~2009) Scope - falope ring Family History Grandmother Diabetes maternal great Lung cancer maternal Family/Other Diabetes maternal great uncle, cousin Mother Hypertension Stroke Other Cancer Social History (Updated 12/14/19 @ 23:36 by John Carrillo MD) Smoking and tobacco status: current every day smoker cigarettes Packs smoked per day: 1 Alcohol intake: former Last substance use date: 07/18/19 Household members: family Housing: House Female Reproductive History: Date of last menstrual period: 07/19/19 Para: 1 Spontaneous abortions: No Physical Exam Const: COMMON NORMALS: no acute distress and patient oriented x3 GENERAL APPEARANCE: cooperative HENMT: COMMON NORMALS: normocephalic and Normal external nose present HEAD & SCALP: normal to inspection and normocephalic NOSE: Normal external nose pr esent MOUTH: Normal oral and palatal mucosa present THROAT: posterior oropharynx normal Eye: GENERAL EYE: appearance normal, both eyes and all related structures Neck/C-Spine: COMMON NORMALS: full ROM Lymph: LYMPHATIC: no lymphadenopathy noted Chest: COMMONS NORMALS: normal inspection of the chest Resp: COMMON NORMALS: normal respiratory effort EFFORT & INSPECTION: Yes able to speak in complete sentences Cardio: COMMON NORMALS: regular rate and regular rhythm RATE: regular rate RHYTHM: regular rhythm GI: COMMON NORMALS: Soft to palpation and non-tender AUSCULTATION: Yes normoactive bowel sounds PALPATION: Yes Soft to palpation : BLADDER/KIDNEY EXAM: Yes CVA tenderness on the right Back/Pelvis: COMMON NORMALS: thoracic and lumbar spine normal to inspection GENERAL BACK: Yes CVA tenderness Extremity: COMMON NORMALS: normal to inspection Neuro: COMMON NORMALS: patient oriented x3 and moves all extremities Psych: COMMON NORMALS: mental status grossly normal and cooperative Skin: COMMON NORMALS: no rashes or lesions noted GENERAL SKIN EXAM: no rashes or lesions noted Course ED course: 2119, patient continues to complain of midepigastric discomfort. Reviewed labs with patient noting that she has some mild leukocytosis of 14,000, lipase was negative, and other labs were insignificant. Awaiting urine collection for lab. wjw [id number], patient is resting well. Reviewed urine with patient shows no sign of infection. Urine did show quite a bit of blood cells but patient did report that she was having some vaginal bleeding. Patient seems to be malingering and not wanting to go home due to concerns of vomiting more. Patient appears well at this time. I discussed this with Dr. White he recommended that patient be discharged and to return if needed. wjw Vital Signs: Vital signs: Vital Signs Temperature 98.2 F 12/31/19 19:59 Pulse Rate 70 12/31/19 19:59 Respiratory Rate 24 H 12/31/19 19:59 Blood Pressure 185/123 12/31/19 19:59 Pulse Oximetry 96 12/31/19 19:59 MDM - Abdominal Pain MDM Narrative: Medical decision making narrative: Patient comes in today with nausea and vomiting. Patient reports that she has a chronic issue with nausea and vomiting and was unable to keep control of it today. She also reports midepigastric pain. Patient appears well. Abdomen soft and nontender. Patient does have some flank pain on the right side. Differential diagnosis includes pyelonephritis, gastroenteritis, gastroesophageal reflux, cyclic vomiting syndrome, anxiety. Patient was treated in the ER with Reglan and promethazine. Patient had good control of vomiting. Patient went addressed to be discharged to go home started becoming anxious and stating that she did not feel like she could go home although patient with much improved from her admission. I reviewed previous CT scan from patient's last admission and it noted no acute abnormalities at that time. Review of labs noted mild leukocytosis at 14,000, CMP was normal. Urinalysis showed blood. Patient states that she had been bleeding vaginally which is normal for her. I feel the patient is probably malingering and I cannot find anything acute. Patient does admittedly report that she has nauseous all the time and has problems with persistent vomiting. I recommend patient follow-up with her primary care regarding her chronic vomiting syndrome and recommend further treatment. Patient reported understanding. Lab Data: Labs: Lab Results 12/31/19 12/31/19 12/31/19 Range/Units 20:07 20:07 21:55 WBC 14.0 H (4.0-10.0) 10^3/ uL RBC 5.00 (4.1-5.3) 10^6/u L Hgb 15.3 (11.5-15.3) g/dL Hct 44.8 (37.0-47.0) % MCV 89.6 (81-99) fL MCH 30.6 (28.0-34.0) pg MCHC 34.2 (30.0-36.0) g/dL RDW 13.4 (12.1-15.1) % Plt Count 387 (130-400) 10^3/c mm MPV 8.8 (7.4-10.4) fL Neut % (Auto) 87.2 % Lymph % (Auto) 9.0 % [place] % (Auto) 3.0 % Eos % (Auto) 0.0 % Baso % (Auto) 0.4 % Neut # (Auto) 12.3 H (1.8-7.7) 10^3/u L Lymph # (Auto) 1.3 (0.8-4.8) 10^3/u L [place] # (Auto) 0.4 (0.2-0.9) 10^3/u L Eos # (Auto) 0.0 (0.0-0.8) 10^3/u L Baso # (Auto) 0.1 (0.0-0.1) 10^3/u L Nucleated RBC % (a uto) 0 % Nucleated RBCs # 0.0 /100WBC Sodium 138 (136-145) mmol/L Potassium 3.5 (3.5-5.1) mmol/L Chloride 103 (98-107) mmol/L Carbon Dioxide 19 L (22-29) mmol/L Anion Gap 19.5 H (5-19) BUN 7 (6-20) mg/dL Creatinine 0.7 (0.5-0.9) mg/dL GFR Calculation 90.9 (90-130) mL/min Glucose 152 H (65-115) mg/dL Calculated Osmolal ity 285 (285-295) mOsm/k g Calcium 9.6 (8.5-10.5) mg/dL Total Bilirubin 0.5 (0.15-1.2) mg/dL AST 22 (0-32) U/L ALT 25 (0-33) U/L Alkaline Phosphata se 54 (35-105) IU/L Total Protein 8.2 (6.6-8.7) g/dL Albumin 4.4 (3.5-5.2) g/dL Globulin 3.8 (1.3-4.6) g/dL Lipase 31 (13-60) U/L Urine Color Yellow (Yellow) Urine Appearance Sl hazy (CLEAR) Urine pH 6.5 (5-7) Ur Specific Gravit y 1.010 (1.005-1.030) Urine Protein Trace (Negative) Urine Glucose (UA) Norm (Normal) Urine Ketones 2+ H (Negative) Urine Blood 3+ H (Negative) Urine Nitrate Negative (Negative) Urine Bilirubin Neg (NEGATIVE) Urine Urobilinogen Norm (Negative) mg/dL Ur Leukocyte Brittany ase Negative (Negative) Urine RBC >100 H (0-2) /hpf Urine WBC 0-4 H (0-5) /hpf Ur Squamous Epith Cells 10-15 H (0-5) Urine Bacteria Trace (NONE) Urine Mucus 1+ Discharge Plan Discharge Patient Disposition: Home, Self-Care Clinical Impression: Cyclical vomiting with nausea Condition: Stable Prescriptions: New Reglan 10 mg tablet 10 mg PO Q6H 7 Days Qty: 28 RF: 0 No Action Protonix [address] for susp in packet 40 mg PO DAILY RF: 0 hydroxyzine HCl 50 mg tablet 100 mg PO .bedtime PRN (Reason: insomnia) RF: 0 atenolol 25 mg tablet 25 mg PO DAILY Qty: 90 RF: 0 cetirizine 10 mg capsule 10 mg PO DAILY RF: 0 promethazine 25 mg tablet 25 mg PO .po q hs PRN (Reason: nausea) Qty: 90 RF: 0 ondansetron HCl 8 mg tablet 8 mg PO Q8H PRN (Reason: Nausea) 30 Days Qty: 90 RF: 1 hydrocodone-acetaminophen 7.5-325 mg/15 mL solution 7.5 ml PO BID PRN (Reason: pain) 30 Days Qty: 450 RF: 0 lorazepam [Ativan] 0.5 mg tablet 0.5 mg PO BID PRN (Reason: nausea and vomiting) Qty: 60 RF: 0 Miralax 17 gram Powder In Packet 17 g PO DAILY 30 Days Qty: 30 RF: 0 lisinopril 20 mg Tablet 20 mg PO DAILY 30 Days Qty: 30 RF: 0 Discharge Orders: Discharge Order (Routine); Ordered 12/31/19 Ordered By: Dillon Keys Referrals: Audra Amaya DO [Primary Care Provider] - Discharge Diet: Usual diet Discharge Activity: Increase activity as tolerated Patient Instructions: Vomiting - Adult Activity Restrictions/Additional Instructions: Home and rest Activity as tolerated Increase fluids as tolerated Follow-up with primary care Coding Level of Care Code ED Inbound Customer Service Agent for Noamg Fwd Exam Comprehensive
[2019-12-31 19:59] VITALS: BP 185/123; PULSE 70; RESP 24; TEMP 36.8; O2SAT 96; BMI 40.3
[2019-12-31 20:20] LABS: Basophils # 0.1 10^3/uL (0.0-0.1); Basophils % 0.4 %; Hematocrit 44.8 % (37.0-47.0); Hemoglobin 15.3 g/dL (11.5-15.3); Lymphocytes # 1.3 10^3/uL (0.8-4.8); Mean Corpuscular HGB Conc 34.2 g/dL (30.0-36.0); Mean Corpuscular Hemoglobin 30.6 pg (28.0-34.0); Mean Corpuscular Volume 89.6 fL (81-99); Mean Platelet Volume 8.8 fL (7.4-10.4); Monocytes # 0.4 10^3/uL (0.2-0.9); Neutrophils # 12.3 10^3/uL (1.8-7.7); Neutrophils % 87.2 %; Nucleated Red Blood Cells % 0 %; Platelet Count 387 10^3/cmm (130-400); Red Cell Distribution Width 13.4 % (12.1-15.1)
[2019-12-31] MEDS: ketorolac 30 mg/mL INJ 15 MG IVP (20:22)
[2019-12-31] MEDS: promethazine 25 mg/mL SDV 1 mL IM (20:22)
[2019-12-31 20:40] LABS: Alanine Aminotransferase 25 U/L (0-33); Albumin Level 4.4 g/dL (3.5-5.2); Alkaline Phosphatase 54 IU/L (35-105); Anion Gap 19.5 (5-19); Aspartate Amino Transferase 22 U/L (0-32); Blood Urea Nitrogen 7 mg/dL (6-20); Calcium 9.6 mg/dL (8.5-10.5); Carbon Dioxide 19 mmol/L (22-29); Chloride 103 mmol/L (98-107); Creatinine Clr Calc Pharmacy 131.0444; Globulin 3.8 g/dL (1.3-4.6); Glomerular Filtration Rate 90.9 mL/min (90-130); Glucose 152 mg/dL (65-115); Lipase 31 U/L (13-60); Osmolality Calculated 285 mOsm/kg (285-295); Potassium 3.5 mmol/L (3.5-5.1); Sodium 138 mmol/L (136-145); Total Bilirubin 0.5 mg/dL (0.15-1.2); Total Protein 8.2 g/dL (6.6-8.7)
[2019-12-31] MEDS: metoclopramide 10 mg Tablet PO (21:50)
[2019-12-31] MEDS: morphine 4 mg/mL SDV 1 mL 2 MG IVP (21:50)
[2019-12-31] MEDS: famotidine 20 mg/2 mL INJ 40 MG IVP (21:50)
[2019-12-31] MEDS: sodium chloride 0.9% 500 ML 999 ML IV (21:50)
[2019-12-31 22:26] LABS: Urine Appearance SL Hazy (CLEAR); Urine Color Yellow (Yellow)
[2019-12-31 22:33] LABS: Bilirubin Urine Neg (NEGATIVE); Blood Urine 3+ (Negative); Glucose Urine UA Norm (Normal); Ketones Urine 2+ (Negative); Nitrate Urine Negative (Negative); Protein Urine Trace (Negative); Urobilinogen Urine Norm (Negative); pH Urine 6.5 (5-7)
[2019-12-31 22:34] LABS: Add Urine Microscopic? YES; Leukocyte Esterase Urine Negative (Negative)
[2019-12-31 22:39] LABS: RBC Urine >100 /hpf (0-2); WBC Urine 0-4 /hpf (0-5)
[2019-12-31 22:40] LABS: Bacteria Urine TRACE; Mucus Urine 1+
[2019-12-31 22:41] LABS: Add Urine Culture? No
[2019-12-31 23:37] VITALS: BP 132/103; PULSE 92; RESP 16; O2SAT 98
== END 2019-12-31 23:39 | disposition home or self-care (01) ==
PROVIDERS: Emergency Provider Nurse Practitioner Family; PCP Family Medicine
DX: R11.15 Cyclical vomiting syndrome unrelated to migraine (principal); I10 Essential (primary) hypertension; F17.210 Nicotine dependence, cigarettes, uncomplicated
CPT/HCPCS: 12345; 80053; 81001; 83690; 85025; 96372; 96374; 96375; 99283; J1885; J2270; J2550; J3490; J7040; J8597

== ENCOUNTER 2020-01-02 11:45 | Inpatient (IN) | payer SELFPAY ==
[2020-01-02] VITALS (8 sets, daily range): BP systolic 114–180; BP diastolic 65–113; PULSE 56–104; RESP 16–20; TEMP 36.3–36.8; O2SAT 95–99; BMI 40.3
--- NOTE | 2020-01-02 12:22 | ED_ITS ---
HPI - Abdominal Pain General: Chief Complaint: Abdominal Pain Stated Complaint: ABD PAIN, N/V Time Seen by Provider: 01/02/20 11:46 History of Present Illness: HPI narrative: 44 yo female comes in complaining of abdominal pain and vomiting. She has been in the emergency room several times in the last week or 2 with the similar symptoms she has a mass on the uterus and is expected to have a hysterectomy but has not yet had it done. She is at home is been using Phenergan hydrocodone and ibuprofen for pain which is only given moderate relief. She denies a fever. She has had some hot flashes intermittently. She was recently treated for bladder infection finished a course of Keflex she was on for 7 to 10 days she still exam. Radiating from the area of the right flank down into the right side of the groin. No dysuria. She denies any upper respiratory symptoms and her to GI or symptoms. MD elicited complaint: abdominal pain Onset (ago): week(s) Pain Consistency: intermittent Location: Diffuse, R flank, Suprapubic and Pelvis Severity: moderate Quality: cramping Radiation: none Migration to: no migration Exacerbating factors: nothing Relieving factors: nothing Associated Symptoms: Reports anorexia, GI cramping, fever(s), nausea and vomiting; Denies bloating, change in bowel habits, chills, coffee ground emesis, constipation, diarrhea, dyspepsia, dysuria, heartburn, hematochezia, hematuria, hematemesis, fecal incontinence and melena Treatments prior to arrival: NSAIDs Related Data: Date of Last Menstrual Period: 12/31/19 Review of Systems Const: Reports: fever(s); Denies: chills ENMT: Denies: throat pain, ear or mastoid pain, nasal discharge or nasal congestion Card: Denies: chest pain, edema, dyspnea on exertion or orthopnea Resp: Denies: dyspnea, productive cough or non-productive cough GI: Reports: nausea, vomiting and GI cramping; Denies: hematemesis, coffee ground emesis, heartburn, diarrhea, constipation, bloating, fecal incontinence, change in bowel habits, hematochezia or melena : Denies: dysuria or hematuria Skin/Breast: Denies: rash or pruritus PFS ED PFSH: Medical History GERD (gastroesophageal reflux disease) Hypertension Morbid obesity Surgical History S/P cholecystectomy (~2014) laparoscopic S/P dilatation and curettage (~1996) Tubal ligation status (~2009) Scope - falope ring Family History Grandmother Diabetes maternal great Lung cancer maternal Family/Other Diabetes maternal great uncle, cousin Mother Hypertension Stroke Other Cancer Social History Smoking and tobacco status: current every day smoker cigarettes Packs smoked per day: 1 Alcohol intake: former Last substance use date: 07/18/19 Household members: family Housing: House Female Reproductive History: Date of last menstrual period: 12/31/19 Para: 1 Spontaneous abortions: No Physical Exam Const: COMMON NORMALS: no acute distress GENERAL APPEARANCE: cooperative and comfortable ORIENTATION/CONSCIOUSNESS: Yes awake, Yes oriented to person, Yes oriented to place and Yes oriented to time HENMT: COMMON NORMALS: normocephalic, atraumatic, hearing grossly normal bilaterally, external ears normal, EAC's normal, TM's normal bilaterally, Normal nasal mucous membranes and turbinates present, moist oral mucous membranes and oropharynx normal HEAD & SCALP: normocephalic and atraumatic NOSE: Normal nasal mucous membranes and turbinates present EXTERNAL EAR: Yes external ears normal EXTERNAL AUDITORY CANAL: EAC's normal TYMPANIC MEMBRANE: TM's normal bilaterally Eye: COMMON NORMALS: Equal, round and reactive pupils present, EOMs intact bilaterally, conjunctivae normal and no scleral icterus CONJUNCTIVA: Yes conjunctivae normal PUPIL: Yes Equal, round and reactive pupils present Neck/C-Spine: COMMON NORMALS: full ROM, no lymphadenopathy, supple and no JVD Lymph: LYMPHATIC: no lymphadenopathy noted and no lymphedema noted Resp: COMMON NORMALS: normal respiratory effort, No retractions, No use of accessory muscles and clear to auscultation bilaterally AUSCULTATION: clear to auscultation bilaterally Cardio: COMMON NORMALS: no JVD, regular rate, regular rhythm and No murmurs present (Cardio) RATE: regular rate RHYTHM: regular rhythm GI: COMMON NORMALS: Soft to palpation and No hepatosplenomegaly present AUSCULTATION: Yes normoactive bowel sounds PALPATION: Yes Soft to palpation, Yes Tenderness to palpation present (GI) (suprapibic), No Guarding due to palpat ion present (GI) and Yes No hepatosplenomegaly present Extremity: COMMON NORMALS: normal to inspection, capillary refill normal, no clubbing, cyanosis or edema, no calf tenderness and no pedal edema Neuro: SENSORIUM/ORIENTATION: Yes oriented to person, Yes oriented to place and Yes oriented to time Skin: COMMON NORMALS: no rashes or lesions noted GENERAL SKIN EXAM: no rashes or lesions noted Course Vital Signs: Vital signs: Vital Signs Temperature 98.7 F 01/04/20 12:26 Pulse Rate 56 L 01/04/20 12:26 Respiratory Rate 18 01/04/20 12:26 Blood Pressure 134/88 01/04/20 12:26 Pulse Oximetry 97 01/04/20 12:26 MDM - Abdominal Pain MDM Narrative: Medical decision making narrative: Reviewed findings with the patient. Will admit for for pain control and he will reevaluate patient on inpatient basis discussed Dr. Rogers she will be admitting physician. Lab Data: Attestation: I reviewed the patient's lab results. Labs: Lab Results 01/02/20 01/02/20 01/02/20 Range/Units 12:38 12:38 12:38 WBC 11.9 H (4.0-10.0) 10^3/ uL RBC 4.96 (4.1-5.3) 10^6/u L Hgb 14.9 (11.5-15.3) g/dL Hct 44.7 (37.0-47.0) % MCV 90.1 (81-99) fL MCH 30.0 (28.0-34.0) pg MCHC 33.3 (30.0-36.0) g/dL RDW 13.2 (12.1-15.1) % Plt Count 395 (130-400) 10^3/c mm MPV 9.1 (7.4-10.4) fL Neut % (Auto) 81.3 % Lymph % (Auto) 12.7 % Terrell % (Auto) 5.2 % Eos % (Auto) 0.0 % Baso % (Auto) 0.5 % Neut # (Auto) 9.6 H (1.8-7.7) 10^3/u L Lymph # (Auto) 1.5 (0.8-4.8) 10^3/u L Terrell # (Auto) 0.6 (0.2-0.9) 10^3/u L Eos # (Auto) 0.0 (0.0-0.8) 10^3/u L Baso # (Auto) 0.1 (0.0-0.1) 10^3/u L Nucleated RBC % (a uto) 0 % Nucleated RBCs # 0.0 /100WBC PT 12.20 (10.5-13.3) SECO NDS INR 0.88 (0.8-1.2) APTT 21.2 L (23.9-36.7) SECO NDS Sodium 137 (136-145) mmol/L Potassium 3.4 L (3.5-5.1) mmol/L Chloride 99 (98-107) mmol/L Carbon Dioxide 21 L (22-29) mmol/L Anion Gap 20.4 H (5-19) BUN 11 (6-20) mg/dL Creatinine 0.7 (0.5-0.9) mg/dL GFR Calculation 90.9 (90-130) mL/min Glucose 129 H (65-115) mg/dL Calculated Osmolal ity 282 L (285-295) mOsm/k g Lactate (0.5-2.2) mmol/L Calcium 9.5 (8.5-10.5) mg/dL Total Bilirubin 0.5 (0.15-1.2) mg/dL AST 22 (0-32) U/L ALT 24 (0-33) U/L Alkaline Phosphata se 49 (35-105) IU/L Creatine Kinase 101 (26-192) U/L Total Protein 7.9 (6.6-8.7) g/dL Albumin 4.3 (3.5-5.2) g/dL Globulin 3.6 (1.3-4.6) g/dL Lipase 32 (13-60) U/L HCG, Qual (Negative) Urine Color (Yellow) Urine Appearance (CLEAR) Urine pH (5-7) Ur Specific Gravit y (1.005-1.030) Urine Protein (Negative) Urine Glucose (UA) (Normal) Urine Ketones (Negative) Urine Blood (Negative) Urine Nitrate (Negative) Urine Bilirubin (NEGATIVE) Prot Sulfosalicyli c Acd (Negative) Urine Urobilinogen (Negative) mg/dL Ur Leukocyte Brittany ase (Negative) Urine RBC (0-2) /hpf Urine WBC (0-5) /hpf Ur Squamous Epith Cells (0-5) Urine Bacteria (NONE) Urine Mucus 01/02/20 01/02/20 01/02/20 Range/Units 12:38 12:58 12:58 WBC (4.0-10.0) 10^3/ uL RBC (4.1-5.3) 10^6/u L Hgb (11.5-15.3) g/dL Hct (37.0-47.0) % MCV (81-99) fL MCH (28.0-34.0) pg MCHC (30.0-36.0) g/dL RDW (12.1-15.1) % Plt Count (130-400) 10^3/c mm MPV (7.4-10.4) fL Neut % (Auto) % Lymph % (Auto) % Terrell % (Auto) % Eos % (Auto) % Baso % (Auto) % Neut # (Auto) (1.8-7.7) 10^3/u L Lymph # (Auto) (0.8-4.8) 10^3/u L Terrell # (Auto) (0.2-0.9) 10^3/u L Eos # (Auto) (0.0-0.8) 10^3/u L Baso # (Auto) (0.0-0.1) 10^3/u L Nucleated RBC % (a uto) % Nucleated RBCs # /100WBC PT (10.5-13.3) SECO NDS INR (0.8-1.2) APTT (23.9-36.7) SECO NDS Sodium (136-145) mmol/L Potassium (3.5-5.1) mmol/L Chloride (98-107) mmol/L Carbon Dioxide (22-29) mmol/L Anion Gap (5-19) BUN (6-20) mg/dL Creatinine (0.5-0.9) mg/dL GFR Calculation (90-130) mL/min Glucose (65-115) mg/dL Calculated Osmolal ity (285-295) mOsm/k g Lactate 1.3 (0.5-2.2) mmol/L Calcium (8.5-10.5) mg/dL Total Bilirubin (0.15-1.2) mg/dL AST (0-32) U/L ALT (0-33) U/L Alkaline Phosphata se (35-105) IU/L Creatine Kinase (26-192) U/L Total Protein (6.6-8.7) g/dL Albumin (3.5-5.2) g/dL Globulin (1.3-4.6) g/dL Lipase (13-60) U/L HCG, Qual Negative (Negative) Urine Color Yellow (Yellow) Urine Appearance Clear (CLEAR) Urine pH 9 H (5-7) Ur Specific Gravit y 1.015 (1.005-1.030) Urine Protein Trace (Negative) Urine Glucose (UA) Norm (Normal) Urine Ketones 1+ H (Negative) Urine Blood 2+ H (Negative) Urine Nitrate Negative (Negative) Urine Bilirubin Neg (NEGATIVE) Prot Sulfosalicyli c Acd Negative (Negative) Urine Urobilinogen Norm (Negative) mg/dL Ur Leukocyte Brittany ase Negative (Negative) Urine RBC 0-4 H (0-2) /hpf Urine WBC 0-4 H (0-5) /hpf Ur Squamous Epith Cells 0-4 H (0-5) Urine Bacteria 1+ H (NONE) Urine Mucus 3+ Discharge Plan Discharge Patient Disposition: Admitted As Inpatient Admit Provider: Marie Rogers Clinical Impression: Fibroid, uterine, Abdominal pain Condition: Stable Discharge Orders: Discharge Order (Routine); Ordered 01/04/20 Ordered By: Marie Rogers Referrals: Alexandre Lau MD [Physician] - 2 weeks (Post hysterectomy follow up.You have an appointment on January 17 at 9:30am with Dr. Lau.) Audra Amaya DO [Primary Care Provider] - 01/15/20 3:15 am (You have a hospital follow up appointment on January 14 at 3:15. This was the earliest I could get you in.) Discharge Diet: Advance as tolerated Discharge Activity: Increase activity as tolerated Patient Instructions: Oxycodone/Acetaminophen (By mouth), Laxative, Stool Softeners (By mouth), Dysmenorrhea (GEN) 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: ED Discharge Assessment Last Done: 01/02/20 16:21 ED Charges Last Done: 01/02/20 13:02 Discharge Date/Time: 01/02/20 16:38 Coding Level of Care Code ED Narrow Gauge Brakeman for Chg Fwd Exam Comprehensive
[2020-01-02] MEDS: morphine 4 mg/mL SDV 1 mL 6 MG IVP (12:26)
[2020-01-02] MEDS: ketorolac 30 mg/mL INJ IVP ×2 (12:26→20:21)
[2020-01-02] MEDS: ondansetron 2 mg/ML SDV 2 mL 4 MG IVP ×3 (12:26→20:23)
[2020-01-02 12:57] LABS: INR 0.88 (0.8-1.2)
[2020-01-02 12:58] LABS: Partial Thromboplastin Time 21.2 SECONDS (23.9-36.7)
[2020-01-02 13:01] LABS: Alanine Aminotransferase 24 U/L (0-33); Albumin Level 4.3 g/dL (3.5-5.2); Alkaline Phosphatase 49 IU/L (35-105); Anion Gap 20.4 (5-19); Aspartate Amino Transferase 22 U/L (0-32); Blood Urea Nitrogen 11 mg/dL (6-20); Calcium 9.5 mg/dL (8.5-10.5); Carbon Dioxide 21 mmol/L (22-29); Chloride 99 mmol/L (98-107); Creatine Phosphokinase 101 U/L (26-192); Creatinine Clr Calc Pharmacy 131.0444; Globulin 3.6 g/dL (1.3-4.6); Glomerular Filtration Rate 90.9 mL/min (90-130); Glucose 129 mg/dL (65-115); Lipase 32 U/L (13-60); Osmolality Calculated 282 mOsm/kg (285-295); Potassium 3.4 mmol/L (3.5-5.1); Sodium 137 mmol/L (136-145); Total Bilirubin 0.5 mg/dL (0.15-1.2); Total Protein 7.9 g/dL (6.6-8.7)
[2020-01-02 13:02] LABS: Lactate (Lactic Acid level) 1.3 mmol/L (0.5-2.2)
[2020-01-02 13:08] LABS: Basophils # 0.1 10^3/uL (0.0-0.1); Basophils % 0.5 %; Hematocrit 44.7 % (37.0-47.0); Hemoglobin 14.9 g/dL (11.5-15.3); Lymphocytes # 1.5 10^3/uL (0.8-4.8); Lymphocytes % 12.7 %; Mean Corpuscular HGB Conc 33.3 g/dL (30.0-36.0); Mean Corpuscular Volume 90.1 fL (81-99); Mean Platelet Volume 9.1 fL (7.4-10.4); Monocytes # 0.6 10^3/uL (0.2-0.9); Monocytes % 5.2 %; Neutrophils # 9.6 10^3/uL (1.8-7.7); Neutrophils % 81.3 %; Nucleated Red Blood Cells % 0 %; Platelet Count 395 10^3/cmm (130-400); Red Blood Count 4.96 10^6/uL (4.1-5.3); Red Cell Distribution Width 13.2 % (12.1-15.1); White Blood Count 11.9 10^3/uL (4.0-10.0)
[2020-01-02 13:16] LABS: Blood Urine 2+ (Negative); Glucose Urine UA Norm (Normal); Ketones Urine 1+ (Negative); Protein Urine Trace (Negative); Specific Gravity, Urine 1.015 (1.005-1.030); Urine Appearance Clear (CLEAR); Urine Color Yellow (Yellow); pH Urine 9 (5-7)
[2020-01-02 13:17] LABS: Add Urine Microscopic? YES; Bilirubin Urine Neg (NEGATIVE); Leukocyte Esterase Urine Negative (Negative); Nitrate Urine Negative (Negative); Sulfosalicylic Acid Urine Negative (Negative); Urobilinogen Urine Norm (Negative)
[2020-01-02 13:20] LABS: Add Urine Culture? No; Bacteria Urine 1+; Mucus Urine 3+; RBC Urine 0-4 /hpf (0-2); Squamous Epithelial Cell Urine 0-4 (0-5); WBC Urine 0-4 /hpf (0-5)
--- NOTE | 2020-01-02 14:01 | PC.NURSE ---
Patient reports feeling better at this time.
--- NOTE | 2020-01-02 16:48 | PM.HP ---
Providers/Chief Complaint Admitting Physician: Marie Rogers MD Primary Care Provider: Audra Amaya DO Chief Complaint: vaginal bleeding, abdominal pain, N/V History of Present Illness China Batres is a 44 year old female, , with PMHx of HTN, GERD, Morbid obesity, Chronic smoker, presents from home for evaluation of ongoing nausea, vomiting, vaginal bleeding, abdominal pain has been ongoing since June of last year. She has been seen at our facility multiple times with similar symptoms, managed conservatively with Depo-provera injections, one in June and a second one in August. Her symptoms seem to improve following these injections for about 2 to 3 months but then recur thereafter. She has been following closely with gynecology and plan was for hysterectomy but due to coronavirus pandemic surgery was rescheduled for January. She was seen in ED on Wednesday of last week then sent home with outpatient follow up. Over the weekend, she started spotting and has had increased vaginal bleeding to the point where she is passing clots as of earlier today. She has had persistent nausea, vomiting, abdominal fullness and pain. Due to her frequent hospital visits, she has had extensive imaging including US, CT and MRI all of which show large uterine leiomyomata. She has had endometrial biopsy which was benign, done in 08/2019. She is not on any anticoagulation or antiplatelet therapy. Has had tubal ligation (2009) and D & C due to incomplete (1996). Work-up today shows mild leukocytosis with a white count of 11.9, hemoglobin of 14.9, mild hypokalemia with potassium of 3.4, normal renal function, blood glucose of 129, lactic acid of 1.3, normal LFTs, INR of 0.88. No further imaging done as she had recent CT of the abdomen and pelvis on 12/13. ER physician has contacted Dr. Lau who will see the patient. Patient will require further pain control, antiemetics and definitive plan for management of symptomatic uterine fibroids. Review of Systems Const: Reports: chills and fatigue; Denies: fever(s) or change in appetite Eyes: Denies: change in vision ENMT: Reports: dry mouth Card: Denies: chest pain, swelling of feet/ankles or lightheadedness Resp: Denies: dyspnea, productive cough or non-productive cough GI: Reports: abdominal pain, nausea and vomiting; Denies: hematemesis, diarrhea, constipation or hematochezia : Reports: vaginal bleeding and pelvic pain; Denies: difficulty voiding, dysuria or urinary frequency Musc: Denies: back pain Skin/Breast: Denies: rash Neuro: Denies: numbness in extremities or weakness in extremities Psych: Denies: anxiety Medications/Allergies Home Medications Medication Instructions Recorded Confirmed Last Taken Type pantoprazole 40 mg granules 40 mg PO DAILY each 07/20/19 01/02/20 01/02/20 History delayed-release for susp in packet cetirizine 10 mg capsule 10 mg PO DAILY 08/25/19 01/02/20 01/01/20 History atenolol 25 mg tablet 25 mg PO DAILY #90 tab 11/22/19 01/02/20 01/01/20 Rx lisinopril 20 mg PO DAILY 30 Days #30 tab 12/17/19 01/02/20 01/01/20 Rx hydrocodone 7.5 mg-acetaminophen 7.5 ml PO BID PRN 30 Days #450 ml 12/25/19 01/02/20 01/02/20 Rx 325 mg/15 mL oral solution lorazepam 0.5 mg tablet 0.5 mg PO BID PRN #60 tab 12/25/19 01/02/20 01/02/20 Rx ondansetron HCl 8 mg tablet 8 mg PO Q8H PRN 30 Days #90 tab 12/25/19 01/02/20 01/02/20 Rx metoclopramide HCl [Reglan] 10 mg PO Q6H 7 Days #28 tab 12/31/19 01/02/20 01/02/20 Rx amlodipine 10 mg PO DAILY 01/02/20 01/02/20 01/02/20 History promethazine 25 mg PO BEDTIME PRN 01/02/20 01/02/20 01/01/20 History Allergies Allergy/AdvReac Type Severity Reaction Status Date / Time No Known Allergies Allergy Verified 11/22/19 10:17 PFSH Acute PFSH: Medical History GERD (gastroesophageal reflux disease) Hypertension Morbid obesity Surgical History S/P cholecystectomy (~2014) laparoscopic S/P dilatation and curettage (~1996) Tubal ligation status (~2009) Scope - falope ring Family History Grandmother Diabetes maternal great Lung cancer maternal Family/Other Diabetes maternal great uncle, cousin Mother Hypertension Stroke Other Cancer Social History Smoking and tobacco status: current every day smoker cigarettes Packs smoked per day: 1 Alcohol intake: former Last substance use date: 07/18/19 Household members: family Housing: House Female Reproductive History: Date of last menstrual period: 12/31/19 : 3 Para: 1 Spontaneous abortions: No Vitals/I&O/Wt Last Vital Signs Temp 97.3 F L 01/02/20 11:50 Pulse 72 01/02/20 16:21 Resp 16 01/02/20 16:21 BP 149/104 01/02/20 16:21 Pulse Ox 96 01/02/20 16:21 Weight last 48 hrs Weight 113.398 kg Physical Exam Const: COMMON NORMALS: no acute distress, patient oriented x3 and alert GENERAL APPEARANCE: cooperative and comfortable NUTRITIONAL APPEARANCE: obese morbidly obese ORIENTATION/CONSCIOUSNESS: Yes awake HENMT: COMMON NORMALS: normocephalic, atraumatic and hearing grossly normal bilaterally HEAD & SCALP: normocephalic and atraumatic MOUTH: moist mucous membranes abnormal Details: parched Eye: COMMON NORMALS: Equal, round and reactive pupils present, EOMs intact bilaterally and conjunctivae normal CONJUNCTIVA: Yes conjunctivae normal PUPIL: Yes Equal, round and reactive pupils present Neck/C-Spine: COMMON NORMALS: full ROM GENERAL: Yes normal visual inspection and Yes trachea midline Chest: CHEST: Yes Symmetrical chest wall rise Resp: COMMON NORMALS: normal respiratory effort, No retractions, No use of accessory muscles and clear to auscultation bilaterally EFFORT & INSPECTION: Yes able to speak in complete sentences, Yes symmetric chest movement and No tachypneic AUSCULTATION: clear to auscultation bilaterally OTHER: -on RA Cardio: COMMON NORMALS: regular rate, regular rhythm, S1 normal heart sound present, S2 normal heart sound present and No murmurs present (Cardio) RATE: regular rate RHYTHM: regular rhythm HEART SOUNDS: S1 normal heart sound present and S2 normal heart sound present GI: COMMON NORMALS: Normal to inspection, nondistended, normoactive bowel sounds present and Soft to palpation INSPECTION: Yes central obesity PALPATION: Yes Soft to palpation and Yes Tenderness to palpation present (GI) (diffuse) Back/Pelvis: COMMON NORMALS: thoracic and lumbar spine normal to inspection Extremity: COMMON NORMALS: normal to inspection, full ROM, no clubbing, cyanosis or edema and no pedal edema Neuro: COMMON NORMALS: patient oriented x3, moves all extremities, no focal motor deficits and no sensory deficits noted Psych: COMMON NORMALS: mental status grossly normal, Normal thought process present, cooperative, normal affect and speech normal SPEECH: Yes normal speech THOUGHT PROCESS: Normal thought process present Skin: COMMON NORMALS: no rashes or lesions noted, no jaundice, no petechiae and no mottling GENERAL SKIN EXAM: no rashes or lesions noted Data : 01/02/20 12:38 01/02/20 12:38 A&P Assessment and plan (1) Uterine fibroid: -reviewed imaging done 12/13 showing enlarged bulky uterus with uterine leiomyomata, cystic degeneration of uterine leiomyomata. No other acute abdominal or pelvic pathology noted. Has had multiple imaging studies including ultrasound and MRI all of which confirm uterine leiomyoma -Has been following up with gynecology with plan for hysterectomy; surgery delayed due to coronavirus pandemic -previously treated with Depo due to menorrhagia with good response (Jun and Aug) -has c/o abdominal fullness, pelvic pressure, vaginal bleeding, N/V -Director Child consulted; Dr. Lau to see -H/H stable; continue to monitor -pain control, antiemetics as needed -monitor vital signs -keep NPO after midnight as plan for hysterectomy in AM Status: Acute Qualifiers: Uterine leiomyoma location: intramural, submucous, and subserous Qualified Code(s): D25.1 - Intramural leiomyoma of uterus; D25.0 - Submucous leiomyoma of uterus; D25.2 - Subserosal leiomyoma of uterus (2) Menorrhagia: -as noted above Status: Acute Qualifiers: Menorrhagia type: with irregular cycle Qualified Code(s): N92.1 - Excessive and frequent menstruation with irregular cycle (3) Nausea and vomiting: -as noted above Status: Acute Qualifiers: Vomiting type: unspecified Vomiting Intractability: non-intractable Qualified Code(s): R11.2 - Nausea with vomiting, unspecified (4) GERD (gastroesophageal reflux disease): -resume PPI Status: Chronic Qualifiers: Esophagitis presence: esophagitis presence not specified Qualified Code(s): K21.9 - Gastro-esophageal reflux disease without esophagitis (5) Hypertension: -hypertensive likely due to pain, N/V -monitor vital signs -resume oral antihypertensives Status: Chronic Qualifiers: Hypertension type: essential hypertension Qualified Code(s): I10 - Essential (primary) hypertension (6) Nicotine dependence, cigarettes, with unspecified nicotine-induced disorders: -1 PPD Status: Chronic (7) Morbid obesity: -BMI-40 kg/m2 Status: Chronic Additional A&P Information -GI ppx with PPI -DVT ppx with SCDs, no AC due to bleeding -Dispo: home -Code status: FULL code Attestations Medical Necessity Statement*: China Geovanni Batres's hospital stay will require greater than 2 midnights for management of menorrhagia, symptomatic uterine leiomyoma pending hysterectomy. Time Spent in Patient Care: Greater than 35 minutes (>than 50% of time spent in counselling and/or direct pt care on unit). Coding Level of Care Code Acute Automation Application Engineer for Chg Fwd Diagnoses Uterine fibroid D25.1; D25.0; D25.2 Uterine leiomyoma location: intramural, submucous, and subserous Menorrhagia N92.1 Menorrhagia type: with irregular cycle Nausea and vomiting R11.2 Vomiting type: unspecified Vomiting Intractability: non-intractable GERD (gastroesophageal reflux disease) K21.9 Esophagitis presence: esophagitis presence not specified Hypertension I10 Hypertension type: essential hypertension Nicotine dependence, cigarettes, with unspecified nicotine-induced disorders F17.219 Morbid obesity E66.01
[2020-01-02] MEDS: morphine 4 mg/mL SDV 1 mL IVP ×2 (17:38→22:30)
[2020-01-02] MEDS: sodium chlor 0.9% + KCl 20 mEq 20 MEQ/1,000 ML BAG 100 MEQ IV (17:38)
[2020-01-02] MEDS: metoclopramide 10 mg Tablet PO (17:38)
--- NOTE | 2020-01-02 18:49 | PC.NURSE ---
Shift Summary Pt arrived to floor around 1700. Pt had episode of emesis and requesting morphine for pain. Pt will be NPO after midnight for surgery at 0900 tomorrow. Pt resting in bed and Dr. Lau at bedside at this time.
--- NOTE | 2020-01-02 18:55 | PM.CONSULT ---
Providers/Reason For Consult Consulting Physican/Specialty*: Alexandre Lau MD (INSTRUMENTATION INSTRUCTOR) Reason for Consult*: Abdominal pain with nausea and vomiting with fibroids Requesting Physcian: Dr. Marie Rogers Attending Physician: Marie Rogers MD Primary Care Provider: Audra Amaya DO History of Present Illness History of Present Illness China Batres is a 44 year old female 3, para 1-0-2-1, LMP unknown (has been on Depo-Lupron), control: Tubal ligation. Patient presented to the ER today with worsening abdominal pain, nausea, vomiting, not feeling well. She has been in and out of the ER multiple times with similar symptoms. She states the symptoms currently have worsened since the last weekend. She states she has been having troubles keeping things down both liquids and solid foods. She states the pain medication has not been helping much with the pain. She reports that the pain is located throughout the abdomen but tends to be worse on the right side. She reports that the pain radiates into her back. She reports having hot flashes, but does not know if she has been having any fevers. She states that she has been having vaginal bleeding off and on for the last month which has worsened over the last few days. She reports being on multiple nausea medications without much improvement. Patient had initially presented to the office due to uterine fibroids. She was seen in August by Dr. Dias with plans for surgery. She was put on Depo-Lupron (3 month dosing) in August to suppress bleeding and possibly shrink fibroids before surgery. She was scheduled for hysterectomy in the beginning of January. Review of Systems Const: Denies: fever(s) or chills ENMT: Denies: throat pain or nasal congestion Card: Reports: lightheadedness; Denies: chest pain or palpitations Resp: Denies: dyspnea, productive cough, non-productive cough or wheezing GI: Reports: abdominal pain, nausea and vomiting; Denies: diarrhea or constipation : Reports: vaginal bleeding, dysmenorrhea, change in menstrual flow and pelvic pain; Denies: difficulty voiding, dysuria, urinary frequency, urinary urgency, genital pruritis or vaginal discharge Skin/Breast: Denies: rash or new lesions Neuro: Denies: headache(s), dizziness or seizure-like activity Psych: Denies: anxiety or depression Endo: Reports: hot flashes; Denies: cold intolerance Julien/Lymph: Denies: easy bruising or easy bleeding Meds/Allergies Home Medications and Allergies Home Medications Medication Instructions Recorded Confirmed Last Taken Type pantoprazole 40 mg granules 40 mg PO DAILY each 07/20/19 01/02/20 01/02/20 History delayed-release for susp in packet cetirizine 10 mg capsule 10 mg PO DAILY 08/25/19 01/02/20 01/01/20 History atenolol 25 mg tablet 25 mg PO DAILY #90 tab 11/22/19 01/02/20 01/01/20 Rx lisinopril 20 mg PO DAILY 30 Days #30 tab 12/17/19 01/02/20 01/01/20 Rx hydrocodone 7.5 mg-acetaminophen 7.5 ml PO BID PRN 30 Days #450 ml 12/25/19 01/02/20 01/02/20 Rx 325 mg/15 mL oral solution lorazepam 0.5 mg tablet 0.5 mg PO BID PRN #60 tab 12/25/19 01/02/20 01/02/20 Rx ondansetron HCl 8 mg tablet 8 mg PO Q8H PRN 30 Days #90 tab 12/25/19 01/02/20 01/02/20 Rx metoclopramide HCl [Reglan] 10 mg PO Q6H 7 Days #28 tab 12/31/19 01/02/20 01/02/20 Rx amlodipine 10 mg PO DAILY 01/02/20 01/02/20 01/02/20 History promethazine 25 mg PO BEDTIME PRN 01/02/20 01/02/20 01/01/20 History Allergies Allergy/AdvReac Type Severity Reaction Status Date / Time No Known Allergies Allergy Verified 11/22/19 10:17 Current Medications Current Medications Generic Name Dose Route Start Last Admin Trade Name Freq PRN Reason Stop Dose Admin Potassium Chloride/Sodium Chloride 20 meq in 1,000 mls @ 100 mls/hr 01/02/20 17:00 01/02/20 17:38 Sodium Chlor 0.9% + Kcl 20 Meq IV 100 mls/hr .Q10H AMRIT Administration Metoclopramide HCl 10 mg 01/02/20 17:00 01/02/20 17:38 Reglan PO 10 mg Q6H AMRIT Administration Morphine Sulfate 4 mg 01/02/20 16:59 01/02/20 17:38 Morphine IVP 4 mg Q4H PRN Administration SEVERE PAIN PFSH Acute PFSH: Medical History GERD (gastroesophageal reflux disease) Hypertension Morbid obesity Surgical History S/P cholecystectomy (~2014) laparoscopic S/P dilatation and curettage (~1996) Tubal ligation status (~2009) Scope - falope ring Family History Grandmother Diabetes maternal great Lung cancer maternal Family/Other Diabetes maternal great uncle, cousin Mother Hypertension Stroke Other Cancer Social History Smoking and tobacco status: current every day smoker cigarettes Packs smoked per day: 1 Alcohol intake: former Last substance use date: 07/18/19 Household members: family Housing: House Female Reproductive History: Date of last menstrual period: 12/31/19 Para: 1 Spontaneous abortions: No Vitals/I&O/Wt Last Vital Signs Temp 97.3 F L 01/02/20 11:50 Pulse 72 01/02/20 16:21 Resp 20 H 01/02/20 17:38 BP 149/104 01/02/20 16:21 Pulse Ox 96 01/02/20 16:21 Weight last 48 hrs Weight 250 lb Physical Exam Const: COMMON NORMALS: average body habitus, alert and well nourished GENERAL APPEARANCE: cooperative and well developed; not comfortable NUTRITIONAL APPEARANCE: obese ORIENTATION/CONSCIOUSNESS: Yes oriented to person, Yes oriented to place and Yes oriented to time Neck/C-Spine: COMMON NORMALS: Thyroid normal GENERAL: Yes trachea midline THYROID: Thyroid normal Resp: COMMON NORMALS: normal respiratory effort and clear to auscultation bilaterally AUSCULTATION: clear to auscultation bilaterally Cardio: COMMON NORMALS: regular rate, regular rhythm, No gallops present (Cardio), No murmurs present (Cardio) and No rub (Cardio) RATE: regular rate RHYTHM: regular rhythm GI: COMMON NORMALS: Soft to palpation and No hepatosplenomegaly present AUSCULTATION: Yes normoactive bowel sounds PALPATION: Yes Soft to palpation, Yes Tenderness to palpation present (GI) (Throughout abdomen, but worse in the lower abdomen.), Yes No hepatosplenomegaly present, No Hernia present and Yes Palpable mass present (Palpable mass in the lower abdomen, consistent with fibroid uterus.) : EXTERNAL FEMALE EXAM: No Hernia present Extremity: COMMON NORMALS: no calf tenderness and no pedal edema Neuro: SENSORIUM/ORIENTATION: Yes alert, Yes oriented to person, Yes oriented to place and Yes oriented to time Psych: COMMON NORMALS: normal affect MOOD & AFFECT: Yes euthymic mood Data Labs: Other Labs: 01/02/2020 at 12: 38 AST 22, ALT 24, alk phos 49, total bili 0.5, total protein 7.9, albumin 4.3, calcium 9.5 Urinalysis: Clear, specific gravity 1.015, protein trace, glucose normal, ketones 1+, blood 2+, nitrates negative, RBC 0-4, WBC 0-4, squamous cells 0-4, bacteria 1+ A&P Assessment and plan (1) Uterine fibroid: (Past history) 09/04/2019: Pelvic ultrasound: Uterus measures 12.9 x 12.3 x 10.2 cm with multiple fibroids with largest measuring 7.0 x 5.9 x 7.5 cm. 09/12/2019: Pelvic MRI: Uterus measured 16.7 x 11.5 x 9.6 cm. Largest fibroid is midline and measures 6.9 x 6.4 x 6.0 cm. Second largest fibroid at the fundus of the uterus measured 5.3 x 5.1 x 5.7 cm. 4-5 smaller fibroids noted. 09/12/2019: Given Depo-Lupron 11.25 mg IM. 10/20/2019: CT abdomen pelvis: Changes consistent with cystic degeneration of uterine fibroid noted. 11/16/2019: Plan is to complete the 3-month timeframe from Lupron and plan on afterwards. Status: Acute Qualifiers: Uterine leiomyoma location: intramural, submucous, and subserous Qualified Code(s): D25.1 - Intramural leiomyoma of uterus; D25.0 - Submucous leiomyoma of uterus; D25.2 - Subserosal leiomyoma of uterus (2) Menorrhagia: (Past history) 11/16/2019: Reported having heavy uterine bleeding that has been ongoing for a while . She was seen in the ER in June 2019 and was found to be significantly anemic. She had a GI evaluation and during her testing was found to have several large fibroids. It was felt that this was most likely the cause for her heavy bleeding. In June she was treated with Depo-Provera to stop her bleeding while her anemia was being treated. She saw Dr. Dias in August and September 2019. She had an endometrial biopsy performed which was negative. He started her on Depo-Lupron on 09/12/2019 to shrink the uterus and keep the bleeding stopped. Treatment for bleeding had been discussed with her and due to the fibroids, hysterectomy was recommended. Status: Acute Qualifiers: Menorrhagia type: with irregular cycle Qualified Code(s): N92.1 - Excessive and frequent menstruation with irregular cycle (3) Chronic abdominal pain: Status: Acute (4) Nausea and vomiting: Status: Chronic Qualifiers: Vomiting type: unspecified Vomiting Intractability: non-intractable Qualified Code(s): R11.2 - Nausea with vomiting, unspecified Additional A&P Information (Hospital visit 01/02/2020) Patient has known uterine fibroids with changes on CT scan consistent with degenerating fibroids. She was treated with Depo-Lupron in August in an attempt to suppress bleeding and shrink the fibroids before surgery. This did stop her bleeding. At this point the Depo-Lupron is wearing off which could be contributing to more of her current symptoms. I discussed with the patient symptoms associated with degenerating fibroids which includes pain, nausea and vomiting. The pain from degenerating fibroids can be quite severe at times. Due to her worsening symptoms at this time and since she has been admitted to the hospital for pain and nausea and vomiting management, I would recommend going ahead and proceeding with hysterectomy. This was discussed with the patient and she wishes to go ahead and proceed with surgery. Specific risks of surgery including bleeding to the point of needing a blood transfusion, infection, and injury to intra-abdominal organs including bowel, bladder, blood vessels, nerves, and ureters were discussed. The greater risk for bleeding due to the fibroids including an increased possibility of needing blood transfusion during surgery and/or afterwards was discussed. Even though the plan is to start with this as a laparoscopic procedure, I discussed with her the high possibility of having to convert to an open procedure depending upon location of the fibroids. I also discussed with her that surgery may or may not improve her pain or nausea and vomiting depending upon the cause for these in the first place. Questions were answered. Patient wishes to proceed with surgery. She is currently scheduled for surgery tomorrow morning, 01/02. Due to reported issues with postop nausea and vomiting, I will be having a scopolamine patch placed tonight. She is to be n.p.o. after midnight tonight. Planned surgery is: Laparoscopic assisted vaginal hysterectomy, Possible total laparoscopic hysterectomy, Possible total abdominal hysterectomy, Possible bilateral salpingo-oophorectomy. 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
--- NOTE | 2020-01-02 19:49 | PC.NURSE ---
Call to Dr. Schafer as patients nausea medications are all oral and she is stating she is unable to tolerate. He ordered to change Regaln Q6H scheduled 10MG to IVP, Zofran 4MG IVP Q6H PRN from Q8H and Ativan 0.5mg oral to 0.25mg IVP BID PRN for N/V.
[2020-01-02] MEDS: scopolamine 1.5 Patch 1 PATCH TRANSDERMA (20:24)
[2020-01-02 20:25] LABS: HCG Qualitative Urine. Negative (Negative)
--- NOTE | 2020-01-02 21:58 | PC.NURSE ---
Call to Dr. Mejia at this time for patient c/o acid reflux; Protonix PO due at 0900 tomorrow, he is okay with 1 time dose of 40mg IVP now of Protonix.
[2020-01-02] MEDS: pantoprazole 40 mg SDV IVP (22:24)
[2020-01-02] MEDS: metoclopramide 5 mg/mL SDV 2 mL 10 MG IVP (22:24)
[2020-01-02] MEDS: LORazepam 2 mg/mL INJ 1 mL 0.25 MG IVP (22:30)
[2020-01-03] VITALS (24 sets, daily range): BP systolic 113–172; BP diastolic 76–105; PULSE 49–73; RESP 13–22; TEMP 36.5–37; O2SAT 59–98
[2020-01-03] MEDS: sodium chlor 0.9% + KCl 20 mEq 20 MEQ/1,000 ML BAG 100 MEQ IV (01:21)
[2020-01-03] MEDS: ketorolac 30 mg/mL INJ IVP ×4 (01:21→20:12)
[2020-01-03 02:28] LABS: Basophils # 0.1 10^3/uL (0.0-0.1); Basophils % 0.5 %; Eosinophils # 0.1 10^3/uL (0.0-0.8); Eosinophils % 0.5 %; Hematocrit 39.1 % (37.0-47.0); Hemoglobin 13.2 g/dL (11.5-15.3); Lymphocytes # 2.9 10^3/uL (0.8-4.8); Lymphocytes % 23.8 %; Mean Corpuscular HGB Conc 33.8 g/dL (30.0-36.0); Mean Corpuscular Hemoglobin 30.5 pg (28.0-34.0); Mean Corpuscular Volume 90.3 fL (81-99); Mean Platelet Volume 9.1 fL (7.4-10.4); Monocytes # 1.2 10^3/uL (0.2-0.9); Monocytes % 9.4 %; Neutrophils % 65.6 %; Nucleated Red Blood Cells % 0 %; Platelet Count 368 10^3/cmm (130-400); Red Blood Count 4.33 10^6/uL (4.1-5.3); Red Cell Distribution Width 13.2 % (12.1-15.1); White Blood Count 12.3 10^3/uL (4.0-10.0)
[2020-01-03 02:47] LABS: Anion Gap 15.2 (5-19); Blood Urea Nitrogen 13 mg/dL (6-20); Calcium 9.2 mg/dL (8.5-10.5); Carbon Dioxide 28 mmol/L (22-29); Chloride 99 mmol/L (98-107); Creatinine Clr Calc Pharmacy 101.9234; Glucose 106 mg/dL (65-115); Osmolality Calculated 285 mOsm/kg (285-295); Potassium 3.2 mmol/L (3.5-5.1); Sodium 139 mmol/L (136-145)
[2020-01-03] MEDS: metoclopramide 5 mg/mL SDV 2 mL 10 MG IVP (04:53)
[2020-01-03] MEDS: atenolol 50 mg Tablet 25 MG PO (07:13)
[2020-01-03] MEDS: amlodipine 10 mg Tablet PO (07:13)
[2020-01-03] MEDS: phenazopyridine 100 mg Tablet 200 MG PO ×3 (07:14→20:11)
[2020-01-03] MEDS: lisinopril 20 mg Tablet PO (07:14)
[2020-01-03] MEDS: ondansetron 2 mg/ML SDV 2 mL 4 MG IVP ×4 (07:17→20:12)
--- NOTE | 2020-01-03 07:59 | P.PN_ITS ---
Subjective Subjective: Interval history: Reports feeling better this morning. States pain has been controlled with medications. Also reports nausea has been controlled. Still wants to go through with the hysterectomy today. Vitals/I&O/Wt Last Vital Signs Temp 98.4 F 01/03/20 07:40 Pulse 57 L 01/03/20 07:40 Resp 18 01/03/20 07:40 BP 149/101 01/03/20 07:22 Pulse Ox 91 01/03/20 07:40 01/02/20 01/03/20 01/03/20 22:59 06:59 14:59 Intake Total 771.667 / 771.667 Output Total 300 / 300 450 / 750 Balance -300 / -300 321.667 / 21.667 Weight last 48 hrs Weight 253 lb 9 oz Weight 250 lb Data : 01/03/20 02:00 01/03/20 02:00 A&P Assessment and plan (1) Uterine fibroid: Patient scheduled for hysterectomy this morning. Reviewed with her options regarding surgery. Mode of surgery reviewed. Questions were answered. She still wished to proceed with hysterectomy. She would like to keep at least one ovary if possible. Status: Acute Qualifiers: Uterine leiomyoma location: intramural, submucous, and subserous Qualified Code(s): D25.1 - Intramural leiomyoma of uterus; D25.0 - Submucous leiomyoma of uterus; D25.2 - Subserosal leiomyoma of uterus (2) Menorrhagia: Status: Acute Qualifiers: Menorrhagia type: with irregular cycle Qualified Code(s): N92.1 - Excessive and frequent menstruation with irregular cycle Attestations Medical Necessity Statement*: Patient having hysterectomy today. 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
[2020-01-03] MEDS: sodium chloride 0.9% 1,000 ML 30 ML IV (09:02)
--- NOTE | 2020-01-03 09:27 | P.ANESASSM_ITS ---
Pre-Anesthetic Assessment Pre-Anesthetic Assessment: Height/Weight: Height 1.68 m Weight 115.014 kg Temp Pulse Resp BP Pulse Ox 98.4 F 57 L 18 149/101 91 01/03/20 07:40 01/03/20 07:40 01/03/20 07:40 01/03/20 07:22 01/03/20 07:40 Proposed Procedure: Operation Date: 01/03/20 08:40 Proposed Procedures p Laparoscopic Assist Vaginal Hystectomy(Not Applicable) - Alexandre Lau MD s possible Total Laparoscopic Hysterectomy(Not Applicable) - Alexandre Lau MD s possible Total Abdominal Hysterectomy PETRA(Not Applicable) - Alexandre Lau MD s possible Laparoscopic Salpingo Oophorectomy(Not Applicable) - Alexandre Lau MD Last intake: Intake Last Liquid Date 01/02/20 Last Liquid Time 23:23 Last Solid Date 01/02/20 Last Solid Time 19:00 Social: Social History: Tobacco and No alcohol Exam: Pre-Anes Outpt Exam: alert, oriented x 3, clear to auscultation bilaterally and regular rate & rhythm Airway: Submandibular: WNL Cervical ROM: WNL MP: 2 Dentition: Other (teeth ok) History/ROS: No significant history except as noted Pulmonary: Pulmonary: TABARES CV/HEM: CV/HEM: HTN : : UTI Hepatic: Hepatic: None reported GI: GI: GERD (controlled) Metabolic: Metabolic: Morbid obesity Musc/skel: Musc/skel: None reported Neuropsych: Neuropsych: Anxiety and Depression Anesthetic Plan: ASA status: 3 Anesthesia: Anesthesia Evaluation and General Risk of > 500 ml blood loss (7ml/kg in children): Yes, adequate IV access and fluids planned Meds/Allergies Current Medications: Current Medications Generic Name Dose Route Start Last Admin Trade Name Freq PRN Reason Stop Dose Admin Amlodipine Besylat e 10 mg 01/03/20 09:00 01/03/20 07:13 Norvasc PO 10 mg DAILY AMRIT Administration Atenolol 25 mg 01/03/20 09:00 01/03/20 07:13 Tenormin PO 25 mg DAILY AMRIT Administration Potassium Chloride /Sodium Chloride 20 meq in 1,000 m ls @ 100 mls/hr 01/02/20 17:00 01/03/20 01:21 Sodium Chlor 0.9 % + Kcl 20 Meq IV 100 mls/hr .Q10H AMRIT Administration Sodium Chloride 1,000 mls @ 30 ml s/hr 01/03/20 08:45 01/03/20 09:02 Sodium Chloride 0.9% IV 01/04/20 08:44 30 mls/hr .Q24H AMRIT Administration Ketorolac Trometha mine 30 mg 01/02/20 19:45 01/03/20 07:12 Toradol IVP 01/07/20 19:44 30 mg Q6H AMRIT Administration Lisinopril 20 mg 01/03/20 09:00 01/03/20 07:14 Prinivil PO 20 mg DAILY AMRIT Administration Lorazepam 0.25 mg 01/02/20 20:02 01/02/20 22:30 Ativan IVP 0.25 mg BID PRN Administration ANXIETY Metoclopramide HCl 10 mg 01/02/20 23:30 01/03/20 04:53 Reglan IVP 10 mg Q6H AMRIT Administration Morphine Sulfate 4 mg 01/02/20 16:59 01/02/20 22:30 Morphine IVP 4 mg Q4H PRN Administration SEVERE PAIN Ondansetron HCl 4 mg 01/02/20 19:55 01/03/20 07:17 Zofran IVP 4 mg Q6H PRN Administration NAUSEA AND VOMITI NG PFSH Anesthesia PFSH: Medical History GERD (gastroesophageal reflux disease) Hypertension Morbid obesity Surgical History S/P cholecystectomy (~2014) laparoscopic S/P dilatation and curettage (~1996) Tubal ligation status (~2009) Scope - falope ring Family History Grandmother Diabetes maternal great Lung cancer maternal Family/Other Diabetes maternal great uncle, cousin Mother Hypertension Stroke Other Cancer Social History Smoking and tobacco status: current every day smoker cigarettes Packs smoked per day: 1 Alcohol intake: former Last substance use date: 07/18/19 Household members: family Housing: House Female Reproductive History: Date of last menstrual period: 12/31/19 : 3 Para: 1 Spontaneous abortions: No Data Anesthesia CBC & Chem 7: 01/03/20 02:00 01/03/20 02:00 Other Labs: Laboratory Results - last 48 hr 01/02/20 01/02/20 01/02/20 12:38 12:38 12:38 WBC 11.9 H RBC 4.96 Hgb 14.9 Hct 44.7 MCV 90.1 MCH 30.0 MCHC 33.3 RDW 13.2 Plt Count 395 MPV 9.1 Neut % (Auto) 81.3 Lymph % (Auto) 12.7 [place] % (Auto) 5.2 Eos % (Auto) 0.0 Baso % (Auto) 0.5 Neut # (Auto) 9.6 H Lymph # (Auto) 1.5 [place] # (Auto) 0.6 Eos # (Auto) 0.0 Baso # (Auto) 0.1 Nucleated RBC % (auto) 0 Nucleated RBCs # 0.0 PT 12.20 INR 0.88 APTT 21.2 L Sodium 137 Potassium 3.4 L Chloride 99 Carbon Dioxide 21 L Anion Gap 20.4 H BUN 11 Creatinine 0.7 GFR Calculation 90.9 Glucose 129 H Calculated Osmolality 282 L Lactate Calcium 9.5 Total Bilirubin 0.5 AST 22 ALT 24 Alkaline Phosphatase 49 Creatine Kinase 101 Total Protein 7.9 Albumin 4.3 Globulin 3.6 Lipase 32 HCG, Qual Urine Color Urine Appearance Urine pH Ur Specific [place] Urine Protein Urine Glucose (UA) Urine Ketones Urine Blood Urine Nitrate Urine Bilirubin Prot Sulfosalicylic Acd Urine Urobilinogen Ur Leukocyte Esterase Urine RBC Urine WBC Ur Squamous Epith Cells Urine Bacteria Urine Mucus 01/02/20 01/02/20 01/02/20 12:38 12:58 12:58 WBC RBC Hgb Hct MCV MCH MCHC RDW Plt Count MPV Neut % (Auto) Lymph % (Auto) [place] % (Auto) Eos % (Auto) Baso % (Auto) Neut # (Auto) Lymph # (Auto) [place] # (Auto) Eos # (Auto) Baso # (Auto) Nucleated RBC % (auto) Nucleated RBCs # PT INR APTT Sodium Potassium Chloride Carbon Dioxide Anion Gap BUN Creatinine GFR Calculation Glucose Calculated Osmolality Lactate 1.3 Calcium Total Bilirubin AST ALT Alkaline Phosphatase Creatine Kinase Total Protein Albumin Globulin Lipase HCG, Qual Negative Urine Color Yellow Urine Appearance Clear Urine pH 9 H Ur Specific [place] 1.015 Urine Protein Trace Urine Glucose (UA) Norm Urine Ketones 1+ H Urine Blood 2+ H Urine Nitrate Negative Urine Bilirubin Neg Prot Sulfosalicylic Acd Negative Urine Urobilinogen Norm Ur Leukocyte Esterase Negative Urine RBC 0-4 H Urine WBC 0-4 H Ur Squamous Epith Cells 0-4 H Urine Bacteria 1+ H Urine Mucus 3+ 01/03/20 01/03/20 02:00 02:00 WBC 12.3 H RBC 4.33 Hgb 13.2 Hct 39.1 MCV 90.3 MCH 30.5 MCHC 33.8 RDW 13.2 Plt Count 368 MPV 9.1 Neut % (Auto) 65.6 Lymph % (Auto) 23.8 [place] % (Auto) 9.4 Eos % (Auto) 0.5 Baso % (Auto) 0.5 Neut # (Auto) 8.0 H Lymph # (Auto) 2.9 [place] # (Auto) 1.2 H Eos # (Auto) 0.1 Baso # (Auto) 0.1 Nucleated RBC % (auto) 0 Nucleated RBCs # 0.0 PT INR APTT Sodium 139 Potassium 3.2 L Chloride 99 Carbon Dioxide 28 Anion Gap 15.2 BUN 13 Creatinine 0.9 GFR Calculation 68.0 L Glucose 106 Calculated Osmolality 285 Lactate Calcium 9.2 Total Bilirubin AST ALT Alkaline Phosphatase Creatine Kinase Total Protein Albumin Globulin Lipase HCG, Qual Urine Color Urine Appearance Urine pH Ur Specific [place] Urine Protein Urine Glucose (UA) Urine Ketones Urine Blood Urine Nitrate Urine Bilirubin Prot Sulfosalicylic Acd Urine Urobilinogen Ur Leukocyte Esterase Urine RBC Urine WBC Ur Squamous Epith Cells Urine Bacteria Urine Mucus Cardiac Studies: No Data to Display
--- NOTE | 2020-01-03 10:22 | PC.RESP ---
Smoking Cessation information and a schedule of classes sent to patient.
[2020-01-03] MEDS: vasopressin 20 unit/mL INJ INJECTION (11:18)
--- NOTE | 2020-01-03 12:52 | P.OP_ITS ---
Operative Report Date of procedure: January 03, 2020 Pre-op Diagnosis: Uterine fibroids, Menorrhagia, Abdominal pain Post-op Diagnosis: Uterine fibroids, Menorrhagia, Abdominal pain Procedure Done: Laparoscopic assisted vaginal hysterectomy with bilateral salpingectomy >250 g, Cystoscopy Specimens removed/disposition: Uterus, cervix, bilateral fallopian tubes Surgeon: Alexandre Lau [employer] Coordinator: None Anesthesia: General Estimated blood loss (mL): 200 IV fluids (mL): 700 Complications: None Findings: Multiple fibroid uterus, normal-appearing fallopian tubes and ovaries. Evidence of prior tubal ligation. The uterus was weighed at completion of the case and weighed over 600 g. Condition: stable Brief History: Patient is a 44-year-old white female 3, para 1-0-2-1 with an unknown LMP (has been on Depo-Lupron) who is status post tubal ligation. She had originally presented to the office in August with bleeding, pain and known uterine fibroids. She was treated with Depo-Lupron for 3 months for bleeding control to allow blood count to rise and to shrink fibroids. She was scheduled for surgery in January. She presented to the ER with worsening abdominal pain, nausea, vomiting, and not feeling well overall. She had been in the ER multiple times due to similar complaints. Due to the severity of the pain and multiple ER evaluations, she was admitted to the hospital for pain management and nausea vomiting management. Since the symptoms were all thought to be secondary to her fibroids, she is now presenting for hysterectomy. During [address] scan she appeared to have a degenerating fibroid. Procedure: The patient was taken to the operating room where general anesthesia was obtained. She was prepped and draped in the usual sterile fashion in the dorsal supine position with legs in Aiden style stirrups. Sequential compression boots were placed prior to starting the case. Oneal catheter was inserted and exam under anesthesia was performed. She was found to have first to second-degree uterine prolapse. Weighted speculum was placed in the vagina and the cervix was grasped with a single-tooth tenaculum. A Hulka was placed. Due to the size of the uterus, decision was made to use a supraumbilical trocar location. The supraumbilical region was injected with 1% lidocaine with epinephrine. Skin incision was made with a knife and a size 10 trocar and sheath were inserted under direct visualization using an Optiview type technique. Trocar was removed and replaced with just the laparoscope confirming intra-abdominal placement. The anterior abdominal wall was inspected and noted to be free of adhesions. In the right and left lower quadrants, lateral to the inferior epigastric vessels, the skin was injected with 1% lidocaine with epinephrine. Skin incisions were made with the knife and a 5 mm trocar and sheath were inserted under direct visualization at each site. The pelvis was inspected. She was noted to have multiple fibroids distorting the shape of the uterus. The uterus was however able to be reflected cephalad enough to allow access to the broad ligament bilaterally. She also was noted to have omental adhesions along the left round ligament. Using the Voyant sealing device, the omental adhesions were taken down from the left round ligament. No other adhesions were noted. Care was taken not to damage underlying bowel. Using the Voyant sealing device, the left utero-ovarian ligament was sealed and cut. The round ligament was sealed and cut and the dissection carried along the lateral aspect of the uterus to approximately the level of the internal os. The broad ligament was and the dissection carried over the lower uterine segment. Using the Voyant sealing device, the right utero-ovarian ligament was sealed and cut. The round ligament was sealed and cut and the dissection carried along the lateral aspect of the uterus to approximately the level of the internal os. The broad ligament was and the dissection carried over the lower uterine segment to meet with the dissection from the contralateral side. The dissection areas were noted to be hemostatic. The abdomen was deflated. The patient's legs were placed in the high lithotomy position. The Hulka was removed and a weighted speculum placed in the vagina. The cervix was regrasped with single-tooth tenaculums. The cervix was circumferentially injected with dilute Pitressin solution. A circumferential incision was made with the knife around the cervix. Bladder was bluntly dissected off of the lower uterine segment. Posterior cul-de-sac was sharply entered and the peritoneum tagged to the vaginal mucosa in the midline. A long weighted retractor was placed in the posterior cul-de-sac. The uterosacral ligaments were clamped, cut, and suture ligated with 0 Vicryl suture bilaterally. The cardinal ligaments were clamped, cut, and suture ligated with 0 Vicryl suture bilaterally. The bladder was sharply dissected away from the uterus and the anterior cul-de-sac entered. A long right angle retractor was used to elevate the bladder away from the uterus. The remaining portion of the broad ligament was serially clamped, cut, and suture ligated with 0 Vicryl suture until the uterus was completely freed. The pedicles were inspected and noted to be hemostatic. In order to remove the uterus, morcellation of the uterus was performed with a knife. Fibroids were also grasped and removed from within the uterus itself. Uterus was able to be fully removed. Posterior edge of the vaginal cuff was oversewn with 0 Vicryl suture in a running locking fashion incorporating the peritoneum to the vaginal mucosa. This extended from the 3:00 position to the 9:00 position posteriorly. The vaginal cuff was closed in a vertical fashion using 0 Vicryl suture in an interrupted [id number] fashion. The uterosacral ligaments and cardinal ligaments were tied in the midline using previously held sutures. The cuff was noted to be hemostatic. Due to the size of the uterus and difficulty in removal of the uterus, decision was made to perform a cystoscopy. Oneal catheter was removed and cystoscopy performed. No injuries were noted within the bladder. No masses were noted within the bladder. Both ureters were noted to be effluxing urine well. Catheter was reinserted. The abdomen was reinflated and and the pelvis thoroughly inspected. The areas of dissection were noted to be hemostatic. Using the Voyant sealing device, both of the fallopian tubes were sealed along the mesosalpinx and then excised. The pedicles were reinspected under normal and low pressures and noted to be hemostatic. The abdomen was deflated and the ports removed. The 5 mm sites were reapproximated using skin glue. The umbilical site was closed with a deep stitch of 4-0 Vicryl suture followed by subcuticular closure of the skin. Skin glue was applied. Patient tolerated the procedures well. Sponge needle and instrument counts were correct. DRAINS: Oneal catheter POSTOPERATIVE STATUS: The patient was transferred to the recovery room in satisfactory condition.
[2020-01-03] MEDS: fentaNYL 50 mcg/mL INJ 2mL IVP (12:58)
[2020-01-03] MEDS: ondansetron 2 mg/ML SDV 2 mL 4 MG (13:38)
[2020-01-03] MEDS: dextrose 5%-lactated ringers 1,000 ML 125 ML IV (14:18)
[2020-01-03] MEDS: oxyCODONE-APAP 5-325 mg Tablet PO (14:20)
[2020-01-03] MEDS: morphine 4 mg/mL SDV 1 mL IVP ×3 (15:35→18:38)
--- NOTE | 2020-01-03 16:05 | PC.NURSE ---
pt complaining of pain rated 7/10, oxycodone and morphine given prn, pt also received scheduled dose of toradol and prn zofran d/t complaints of nausea. pt able to have another dose of morphine at this time, she refuses stating she wont take it unless I can take reglan this nurse notified Dr. Rogers who stated she would come and see patient before prescribing more medications. Pt anxious at this time, prn ativan offered, she refused.
--- NOTE | 2020-01-03 19:29 | P.PN_ITS ---
Subjective Subjective: Interval history: OR today for hysterectomy, had 450 mL urine output overnight, seen after return from OR, has been ambulating in room, complains of pain and nausea. Wants meds resumed. Stable leukocytosis, hemoglobin remains wnl, mild hypokalemia. Medications: Reviewed: Yes Medication Review Details: Active Medications Generic Name Dose Route Start Last Admin Trade Name Freq PRN Reason Stop Dose Admin Acetaminophen 650 mg 01/03/20 13:40 Tylenol PO Q6H PRN Mild Pain or Temp >100.4 Al Hydrox/Mg Crossett x/Simethicone 30 ml 01/03/20 13:40 Maalox PO Q4H PRN INDIGESTION Amlodipine Besylat e 10 mg 01/03/20 09:00 01/03/20 07:13 Norvasc PO 10 mg DAILY AMRIT Administration Atenolol 25 mg 01/03/20 09:00 01/03/20 07:13 Tenormin PO 25 mg DAILY AMRIT Administration Cetirizine HCl 10 mg 01/03/20 09:00 Zyrtec PO DAILY AMRIT Docusate Sodium 100 mg 01/03/20 18:00 01/03/20 17:16 Colace PO Not Given BID AMRIT Dextrose/Lactated Ringer's 1,000 mls @ 125 m ls/hr 01/03/20 13:40 01/03/20 14:18 Dextrose 5%-Lact ated Ringers IV 125 mls/hr .Q8H AMRIT Administration Sodium Chloride 500 mls @ 500 mls /hr 01/03/20 13:40 Sodium Chloride 0.9% IV .Q1H PRN urine output Ibuprofen 800 mg 01/04/20 13:29 Motrin PO Q8H AMRIT Ketorolac Trometha mine 30 mg 01/02/20 19:45 01/03/20 13:38 Toradol IVP 01/07/20 19:44 30 mg Q6H AMRIT Administration Lisinopril 20 mg 01/03/20 09:00 01/03/20 07:14 Prinivil PO 20 mg DAILY AMRIT Administration Lorazepam 0.25 mg 01/02/20 20:02 01/02/20 22:30 Ativan IVP 0.25 mg BID PRN Administration ANXIETY Morphine Sulfate 2 - 4 mg 01/03/20 13:40 01/03/20 18:38 Morphine IVP 4 mg Q30M PRN Administration BREAKTHROUGH PAIN Ondansetron HCl 4 mg 01/03/20 13:40 01/03/20 13:52 Zofran IVP 4 mg Q4H PRN Administration NAUSEA Oxycodone/Acetamin ophen 1 - 2 tab 01/03/20 13:40 01/03/20 14:20 Percocet 5-325 M g PO 1 tab Q6H PRN Administration MODERATE TO SEVER E PAIN Pantoprazole Sodiu m 40 mg 01/04/20 09:00 Protonix PO DAILY AMRIT Phenazopyridine HC l 200 mg 01/03/20 15:00 01/03/20 14:17 Pyridium PO 200 mg TID AMRIT Administration Promethazine HCl 25 mg 01/03/20 13:40 Phenergan PO BEDTIME PRN nausea Simethicone 80 mg 01/03/20 13:40 Mylicon Tab PO QID PRN Gas distention No Known Allergies Allergy (Verified 11/22/19 10:17) Vitals/I&O/Wt Last Vital Signs Temp 97.9 F 01/03/20 16:33 Pulse 53 L 01/03/20 17:44 Resp 20 H 01/03/20 18:38 BP 143/86 01/03/20 17:25 Pulse Ox 94 01/03/20 17:44 01/03/20 01/03/20 01/03/20 06:59 14:59 22:59 Intake Total 771.667 / 771.667 50 / 50 60 / 110 Output Total 450 / 750 200 / 200 2800 / 3000 Balance 321.667 / 21.667 -150 / -150 -2740 / -2890 Weight last 48 hrs Weight 115.014 kg Weight 113.398 kg Physical Exam Const: COMMON NORMALS: no acute distress, patient oriented x3 and alert GENERAL APPEARANCE: cooperative and comfortable NUTRITIONAL APPEARANCE: obese morbidly obese ORIENTATION/CONSCIOUSNESS: Yes awake HENMT: COMMON NORMALS: normocephalic, atraumatic, hearing grossly normal bilat erally and moist oral mucous membranes HEAD & SCALP: normocephalic and at raumatic MOUTH: moist mucous membranes abnormal Details: parched Eye: COMMON NORMALS: Equal, round and reactive pupils present, EOMs intact bilaterally and conjunctivae normal CONJUNCTIVA: Yes conjunctivae normal PUPIL: Yes Equal, round and reactive pupils present Neck/C-Spine: COMMON NORMALS: full ROM GENERAL: Yes normal visual inspection and Yes trachea midline Chest: CHEST: Yes Symmetrical chest wall rise Resp: COMMON NORMALS: normal respiratory effort, No retractions, No use of accessory muscles and clear to auscultation bilaterally EFFORT & INSPECTION: Yes able to speak in complete sentences, Yes symmetric chest movement and No tachypneic AUSCULTATION: clear to auscultation bilaterally OTHER: -on RA Cardio: COMMON NORMALS: regular rhythm, S1 normal heart sound present, S2 normal heart sound present and No murmurs present (Cardio) RATE: bradycardic RHYTHM: regular rhythm HEART SOUNDS: S1 normal heart sound present and S2 normal heart sound present GI: COMMON NORMALS: Normal to inspection, nondistended, normoactive bowel sounds present and Soft to palpation INSPECTION: Yes central obesity PALPATION: Yes Soft to palpation and Yes Tenderness to palpation present (GI) (diffuse) : BLADDER/KIDNEY EXAM: Yes catheter in place Catheter type (Female): urethral Back/Pelvis: COMMON NORMALS: thoracic and lumbar spine normal to inspection Extremity: COMMON NORMALS: normal to inspection, full ROM, no clubbing, cyanosis or edema and no pedal edema Neuro: COMMON NORMALS: patient oriented x3, moves all extremities, no focal motor deficits, no sensory deficits noted and gait normal SENSORIUM/ORIENTATION: Yes alert Psych: COMMON NORMALS: mental status grossly normal, Normal thought process present, cooperative, normal affect and speech normal SPEECH: Yes normal speech THOUGHT PROCESS: Normal thought process present Skin: COMMON NORMALS: no rashes or lesions noted, no jaundice, no petechiae and no mottling GENERAL SKIN EXAM: no rashes or lesions noted Urinary Catheter Management^: Oneal: Cath Placed During This Visit: yes Urethral Indwelling: Yes Reason for Continuing Indwelling Catheter: Perioperative Use in Selected Surgeries Urinary Catheter Date of Insertion: 01/03/20 Urinary Catheter Time of Insertion: 10:30 Data : 01/03/20 02:00 01/03/20 02:00 A&P Assessment and plan (1) Uterine fibroid: -reviewed imaging done 12/13 showing enlarged bulky uterus with uterine leiomyomata, cystic degeneration of uterine leiomyomata. No other acute abdominal or pelvic pathology noted. 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 Sid adrian -H/H stable; continue to monitor -pain control, antiemetics as needed -monitor vital signs -keep NPO after midnight for hysterectomy in AM Status: Acute Qualifiers: Uterine leiomyoma location: intramural, submucous, and subserous Qualified Code(s): D25.1 - Intramural leiomyoma of uterus; D25.0 - Submucous leiomyoma of uterus; D25.2 - Subserosal leiomyoma of uterus (2) Menorrhagia: -as noted above Status: Acute Qualifiers: Menorrhagia type: with irregular cycle Qualified Code(s): N92.1 - Excessive and frequent menstruation with irregular cycle (3) Nausea and vomiting: -as noted above Status: Acute Qualifiers: Vomiting type: unspecified Vomiting Intractability: non-intractable Qualified Code(s): R11.2 - Nausea with vomiting, unspecified (4) GERD (gastroesophageal reflux disease): -on PPI Status: Chronic (5) Hypertension: -hypertensive likely due to pain, N/V -continue to monitor vital signs -continue oral antihypertensives Status: Chronic Qualifiers: Hypertension type: essential hypertension Qualified Code(s): I10 - Essential (primary) hypertension (6) Nicotine dependence, cigarettes, with unspecified nicotine-induced disorders: -1 PPD Status: Chronic (7) Morbid obesity: -BMI-41 kg/m2 Status: Chronic Additional A&P Information -mild hypokalemia; replace as needed -GI ppx with PPI -DVT ppx with SCDs, no AC due to bleeding -Dispo: home -Code status: FULL code Attestations Medical Necessity Statement*: Patient requires hospitalization for continued care s/p laparoscopic hysterectomy including hemodynamic status monitoring, monitoring of hemoglobin, pain control. Time Spent in Patient Care: 16 - 35 minutes (>than 50% of time spent in counselling and/or direct pt care on unit) . 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
[2020-01-03] MEDS: potassium chloride ER 10 mEq Tablet 40 MEQ PO (20:11)
[2020-01-03] MEDS: LORazepam 2 mg/mL INJ 1 mL 0.25 MG IVP (21:59)
[2020-01-03] MEDS: metoclopramide oral liquid 5 mg/5 mL (ml) 10 MG PO (22:31)
[2020-01-04] MEDS: ketorolac 30 mg/mL INJ IVP (02:10)
[2020-01-04] MEDS: dextrose 5%-lactated ringers 1,000 ML 125 ML IV (02:10)
[2020-01-04 02:16] VITALS: RESP 18
[2020-01-04] MEDS: promethazine 25 mg Tablet PO (02:16)
[2020-01-04] MEDS: oxyCODONE-APAP 5-325 mg Tablet PO ×2 (02:16→06:45)
[2020-01-04 04:00] VITALS: BP 112/73; PULSE 58; RESP 17; TEMP 36.7; O2SAT 97
[2020-01-04 05:01] LABS: Basophils % 0.3 %; Eosinophils # 0.1 10^3/uL (0.0-0.8); Eosinophils % 0.6 %; Hematocrit 37.9 % (37.0-47.0); Hemoglobin 12.5 g/dL (11.5-15.3); Lymphocytes # 2.9 10^3/uL (0.8-4.8); Lymphocytes % 24.4 %; Mean Corpuscular Hemoglobin 30.2 pg (28.0-34.0); Mean Corpuscular Volume 91.5 fL (81-99); Mean Platelet Volume 8.8 fL (7.4-10.4); Monocytes # 1.2 10^3/uL (0.2-0.9); Monocytes % 10.5 %; Neutrophils # 7.5 10^3/uL (1.8-7.7); Neutrophils % 63.9 %; Nucleated Red Blood Cells % 0 %; Platelet Count 312 10^3/cmm (130-400); Red Blood Count 4.14 10^6/uL (4.1-5.3); Red Cell Distribution Width 13.2 % (12.1-15.1); White Blood Count 11.8 10^3/uL (4.0-10.0)
[2020-01-04 05:30] LABS: Anion Gap 11.9 (5-19); Blood Urea Nitrogen 10 mg/dL (6-20); Calcium 9.5 mg/dL (8.5-10.5); Carbon Dioxide 27 mmol/L (22-29); Chloride 102 mmol/L (98-107); Glomerular Filtration Rate 60.2 mL/min (90-130); Glucose 119 mg/dL (65-115); Osmolality Calculated 281 mOsm/kg (285-295); Potassium 3.9 mmol/L (3.5-5.1); Sodium 137 mmol/L (136-145)
[2020-01-04 06:45] VITALS: RESP 18
[2020-01-04] MEDS: ondansetron 2 mg/ML SDV 2 mL 4 MG IVP (06:45)
--- NOTE | 2020-01-04 07:35 | ANE.PACU2 ---
Inpatient post-anesthesia follow up: Airway intact: Yes Vital signs: Temperature 98.0 F Pulse Rate [Monito r] 100 Pulse Rate 58 Respiratory Rate 18 Blood Pressure [Le ft Arm] 180/113 Blood Pressure 112/73 Pulse Oximetry 97 Oxygen Delivery Me thod Room Air Oxygen Flow Rate 6 Fraction of Inspir ed Oxygen Hydration adequate: Yes Nausea and vomiting: No Pain level: 2 Mental status: Baseline Additional Comments: Some ache in R posterior cervical strap muscles
[2020-01-04 07:46] VITALS: BP 140/80; PULSE 54; RESP 20; TEMP 36.8; O2SAT 96
--- NOTE | 2020-01-04 07:56 | P.PN_ITS ---
Subjective Subjective: Interval history: Reports feeling much better overall. Denies any complaints this morning. States pain is been well controlled. Denies shortness of breath or chest pains. Denied lightheadedness or dizziness with ambulation. Reports slight nausea, but no vomiting. Wants to try something more substantial to eat. Vitals/I&O/Wt Last Vital Signs Temp 98.2 F 01/04/20 07:46 Pulse 54 L 01/04/20 07:46 Resp 20 H 01/04/20 07:46 BP 140/80 01/04/20 07:46 Pulse Ox 96 01/04/20 07:46 01/03/20 01/04/20 01/04/20 22:59 06:59 14:59 Intake Total 1060 / 1110 Output Total 2800 / 3000 1350 / 4350 Balance -1740 / -1890 -1350 / -3240 Weight last 48 hrs Weight 253 lb 9 oz Weight 250 lb Physical Exam Const: COMMON NORMALS: no acute distress, average body habitus, alert and well nourished GENERAL APPEARANCE: well developed ORIENTATION/CONSCIOUSNESS: Yes oriented to person, Yes oriented to place and Yes oriented to time Resp: COMMON NORMALS: normal respiratory effort and clear to auscultation bilaterally AUSCULTATION: clear to auscultation bilaterally Cardio: COMMON NORMALS: regular rate, regular rhythm, No gallops present (Cardio), No murmurs present (Cardio) and No rub (Cardio) RATE: regular rate RHYTHM: regular rhythm GI: COMMON NORMALS: Soft to palpation, No hepatosplenomegaly present and no masses INSPECTION: Yes incision (Laparoscopy sites well approximated without erythema noted.) AUSCULTATION: Yes normoactive bowel sounds PALPATION: Yes Soft to palpation, Yes Tenderness to palpation present (GI) (Tender in the lower abdomen, especially at the laparoscopy sites), Yes No hepatosplenomegaly present and No Hernia present : EXTERNAL FEMALE EXAM: No Hernia present Extremity: COMMON NORMALS: no calf tenderness Neuro: SENSORIUM/ORIENTATION: Yes alert, Yes oriented to person, Yes oriented to place and Yes oriented to time Psych: COMMON NORMALS: normal affect MOOD & AFFECT: Yes euthymic mood Urinary Catheter Management^: Oneal: Cath Placed During This Visit: yes Urethral Indwelling: Yes Reason for Continuing Indwelling Catheter: Perioperative Use in Selected Surgeries Urinary Catheter Date of Insertion: 01/03/20 Urinary Catheter Time of Insertion: 10:30 Data : 01/04/20 04:53 01/04/20 04:53 A&P Assessment and plan (1) Uterine fibroid: Postoperative day 1, status post LAVH. Patient reports doing much better. Pain has been well controlled. We will switch from all IV pain medications to oral. Start regular diet this morning. Discontinue Oneal catheter. Encouraged ambulation. If she does well through the morning and her pain is well controlled on oral medication, then she would be fine to go home after lunch from my standpoint. Discharge instructions were discussed with her. She will need to follow-up in my office in approximately 2 weeks. 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
[2020-01-04] MEDS: lisinopril 20 mg Tablet PO (09:00)
[2020-01-04] MEDS: docusate sodium 100 mg Capsule PO (09:00)
[2020-01-04] MEDS: amlodipine 10 mg Tablet PO (09:01)
[2020-01-04] MEDS: cetirizine 10 mg Tablet PO (09:01)
[2020-01-04] MEDS: pantoprazole DR 40 mg Tablet PO (09:01)
[2020-01-04 11:17] VITALS: BP 134/88; PULSE 56; RESP 18; TEMP 37.1; O2SAT 97
--- NOTE | 2020-01-04 12:14 | P.DS_ITS ---
Discharge Providers Date of Admission: 01/02/20 19:35 Date of Discharge: January 04, 2020 Attending Provider at Admission: Marie Rogers MD Attending Provider at Discharge: Marie Rogers MD Primary Care Provider: Audra Amaya DO Diagnoses at Discharge Discharge Diagnosis (1) Uterine fibroid: Status: Acute Problem details: -reviewed imaging done 12/13 showing enlarged bulky uterus with uterine leiomyomata, cystic degeneration of uterine leiomyomata. No other acute abdominal or pelvic pathology noted. Has had multiple imaging studies including ultrasound and MRI all of which confirm uterine leiomyoma -Has been following up with gynecology with plan for hysterectomy; surgery delayed due to coronavirus pandemic -previously treated with Depo due to menorrhagia with good response (Jun and Aug) -has c/o abdominal fullness, pelvic pressure, vaginal bleeding, N/V; resolved following surgery -Project Development Director consult by Dr. Sid adrian -H/H stable; continue to monitor -pain control, antiemetics as needed -VSS other than noted bradycardia, asymptomatic -s/p laparoscopic assisted vaginal hysterectomy with bilateral salpingectomy: POD # 1 -Oneal catheter discontinued, able to void without difficulty -tolerating diet Qualifiers: Uterine leiomyoma location: intramural, submucous, and subserous Qualified Code(s): D25.1 - Intramural leiomyoma of uterus; D25.0 - Submucous leiomyoma of uterus; D25.2 - Subserosal leiomyoma of uterus (2) Menorrhagia: Status: Acute Qualifiers: Menorrhagia type: with irregular cycle Qualified Code(s): N92.1 - Excessive and frequent menstruation with irregular cycle (3) Chronic abdominal pain: Status: Acute (4) Morbid obesity: Status: Chronic Problem details: -BMI-41 kg/m2 (5) GERD (gastroesophageal reflux disease): Status: Chronic Problem details: -on PPI Qualifiers: Esophagitis presence: esophagitis presence not specified Qualified Code(s): K21.9 - Gastro-esophageal reflux disease without esophagitis (6) Hypertension: Status: Chronic Problem details: -initially hypertensive likely due to pain, N/V; now normotensive -continue to monitor vital signs -continue oral antihypertensives; off BB due to bradycardia Qualifiers: Hypertension type: essential hypertension Qualified Code(s): I10 - Essential (primary) hypertension (7) Nicotine dependence, cigarettes, with unspecified nicotine-induced disorders: Status: Chronic Problem details: -1 PPD -smoking cessation encouraged Reason for Visit Reason for Visit: vaginal bleeding, abdominal pain, N/V Hospital Course Hospital Course: Patient was admitted to the medical surgical floor and will be/APPLIANCE SERVICE SUPERVISOR consulted as patient has a known history of menorrhagia, chronic pelvic pain and known uterine fibroids, that had been pending surgical intervention but due to coronavirus pandemic had been rescheduled for January. Patient had been seen at the hospital several times due to continued symptoms including nausea/vomiting, pelvic pressure, vaginal bleeding and abdominal pain. Hemoglobin has been noted to be stable. is well decided to go ahead with laparoscopic assisted vaginal hysterectomy with bilateral salpingectomy. Patient has done well post-op, hemoglobin remained stable, symptoms have resolved other than very mild nausea. Oneal catheter has been discontinued and she has been able to void without difficulty. She has been independently ambulatory. Diet has been advanced as tolerated and she is done well in terms of oral intake. She was noted to be bradycardic so beta-petar has been discontinued. She has otherwise been hemodynamically stable and afebrile. Leukocytosis has improved and I expect that this is likely reactive rather than infectious in origin so would not treat this specifically with antibiotics. She will be discharged home today with follow-up arranged in [address] Lau and her primary care provider in the meantime. She is counseled on need to monitor for persistent nausea/vomiting, increased abdominal pain or pelvic pressure, bleeding which would require immediate medical attention. Discharge Summary: -Patient to follow-up with her primary care provider within 1 week -Patient to follow-up with Dr. Lau in 2 weeks Physical Exam Const: COMMON NORMALS: no acute distress, patient oriented x3 and alert GENERAL APPEARANCE: cooperative and comfortable NUTRITIONAL APPEARANCE: obese morbidly obese ORIENTATION/CONSCIOUSNESS: Yes awake HENMT: COMMON NORMALS: normocephalic, atraumatic, hearing grossly normal bilaterally and moist oral mucous membranes HEAD & SCALP: normocephalic and atraumatic MOUTH: moist mucous membranes abnormal Details: parched Eye: COMMON NORMALS: Equal, round and reactive pupils present, EOMs intact bilaterally and conjunctivae normal CONJUNCTIVA: Yes conjunctivae normal PUPIL: Yes Equal, round and reactive pupils present Neck/C-Spine: COMMON NORMALS: full ROM GENERAL: Yes normal visual inspection and Yes trachea midline Chest: CHEST: Yes Symmetrical chest wall rise Resp: COMMON NORMALS: normal respiratory effort, No retractions, No use of accessory muscles and clear to auscultation bilaterally EFFORT & INSPECTION: Yes able to speak in complete sentences, Yes symmetric chest movement and No tachypneic AUSCULTATION: clear to auscultation bilaterally OTHER: -on RA Cardio: COMMON NORMALS: regular rhythm, S1 normal heart sound present, S2 normal heart sound present and No murmurs present (Cardio) RATE: bradycardic RHYTHM: regular rhythm HEART SOUNDS: S1 normal heart sound present and S2 normal heart sound present GI: COMMON NORMALS: Normal to inspection, nondistended, normoactive bowel sounds present and Soft to palpation INSPECTION: Yes central obesity PALPATION: Yes Soft to palpation OTHER: -laparoscopic sites healing appropriately : BLADDER/KIDNEY EXAM: No catheter in place Back/Pelvis: COMMON NORMALS: thoracic and lumbar spine normal to inspection Extremity: COMMON NORMALS: normal to inspection, full ROM, no clubbing, cyanosis or edema and no pedal edema Neuro: COMMON NORMALS: patient oriented x3, moves all extremities, no focal motor deficits, no sensory deficits noted and gait normal SEN SORIUM/ORIENTATION: Yes alert Psych: COMMON NORMALS: mental status grossly normal, Normal thought process present, cooperative, normal affect and speech normal SPEECH: Yes normal speech THOUGHT PROCESS: Normal thought process present Skin: COMMON NORMALS: no rashes or lesions noted, no jaundice, no petechiae and no mottling GENERAL SKIN EXAM: no rashes or lesions noted Urinary Catheter Management^: Oneal: Cath Placed During This Visit: yes, but has since been removed by the nurse Urethral Indwelling: Yes Reason for Continuing Indwelling Catheter: Decision to DC Catheter Urinary Catheter Date of Insertion: 01/03/20 Urinary Catheter Time of Insertion: 10:30 Date Urinary Catheter Removed: 01/04/20 Time Urinary Catheter Discontinued: 09:06 Discharge Data Data Completed and Pending: Pending at discharge Category Date Time Status ES surgery / GI i mages Routine Exams 01/03/20 09:38 Taken Pathology: Surgic al [PTH] Routine Pth 01/03/20 12:49 Received Labs from last 24 hours 01/04/20 01/04/20 04:53 04:53 WBC 11.8 H RBC 4.14 Hgb 12.5 Hct 37.9 MCV 91.5 MCH 30.2 MCHC 33.0 RDW 13.2 Plt Count 312 MPV 8.8 Neut % (Auto) 63.9 Lymph % (Auto) 24.4 [place] % (Auto) 10.5 Eos % (Auto) 0.6 Baso % (Auto) 0.3 Neut # (Auto) 7.5 Lymph # (Auto) 2.9 [place] # (Auto) 1.2 H Eos # (Auto) 0.1 Baso # (Auto) 0.0 Nucleated RBC % (a uto) 0 Nucleated RBCs # 0.0 Sodium 137 Potassium 3.9 Chloride 102 Carbon Dioxide 27 Anion Gap 11.9 BUN 10 Creatinine 1.0 H GFR Calculation 60.2 L Glucose 119 H Calculated Osmolal ity 281 L Calcium 9.5 Vitals: Last Vital Signs Temp 98.7 F 01/04/20 11:17 Pulse 56 L 01/04/20 11:17 Resp 18 01/04/20 11:17 BP 134/88 01/04/20 11:17 Pulse Ox 97 01/04/20 11:17 Discharge Plan Discharge Patient Disposition: Home, Self-Care Condition: Stable Prescriptions: New ibuprofen 800 mg Tablet 800 mg PO TID Qty: 90 RF: 0 oxycodone-acetaminophen 5-325 mg Tablet 1 - 2 tab PO Q6H PRN (Reason: Moderate To Severe Pain) Qty: 20 RF: 0 docusate sodium 100 mg Capsule 100 mg PO BID 30 Days Qty: 60 RF: 0 Continued Protonix [address] for susp in packet 40 mg PO DAILY RF: 0 cetirizine 10 mg capsule 10 mg PO DAILY RF: 0 ondansetron HCl 8 mg tablet 8 mg PO Q8H PRN (Reason: Nausea) 30 Days Qty: 90 RF: 1 lorazepam [Ativan] 0.5 mg tablet 0.5 mg PO BID PRN (Reason: nausea and vomiting) Qty: 60 RF: 0 promethazine 25 mg tablet 25 mg PO BEDTIME PRN (Reason: nausea) RF: 0 amlodipine 10 mg Tablet 10 mg PO DAILY RF: 0 lisinopril 20 mg Tablet 20 mg PO DAILY 30 Days Qty: 30 RF: 0 metoclopramide HCl [Reglan] 10 mg tablet 10 mg PO Q6H 7 Days Qty: 28 RF: 0 Discontinued atenolol 25 mg tablet 25 mg PO DAILY Qty: 90 RF: 0 hydrocodone-acetaminophen 7.5-325 mg/15 mL solution 7.5 ml PO BID PRN (Reason: pain) 30 Days Qty: 450 RF: 0 Discharge Orders: Discharge Order (Routine); Ordered 01/04/20 Ordered By: Marie Rogers Referrals: Alexandre Lau MD [Physician] - 2 weeks (Post hysterectomy follow up) Audra Amaya DO [Primary Care Provider] - 01/15/20 3:15 am (You have a hospital follow up appointment on January 14 at 3:15. This was the earliest I could get you in.) Discharge Diet: Advance as tolerated Discharge Activity: Increase activity as tolerated Patient Instructions: Oxycodone/Acetaminophen (By mouth), Laxative, Stool Softeners (By mouth), Dysmenorrhea (GEN) Discharge Attestations Time Spent in Discharge Care*: greater than 30 min Specific Discharge Activities: Specific discharge activities: educating patient, discussing with case reviewer/social workers/dc planners, documenting/other paperwork and evaluating patient/reviewing data Status at Discharge: Cognitive status at discharge: cognitively intact , Behavioral status at discharge: cooperative , Functional status at discharge: independent ambulation Overall status at discharge: patient is progressing back to baseline Quality Metrics Clinical Quality Measures During this hospital stay, did patient experience: None Coding Level of Care Code Acute Restaurant General Manager for Chg Fwd Diagnoses Uterine fibroid D25.1; D25.0; D25.2 Uterine leiomyoma location: intramural, submucous, and subserous Menorrhagia N92.1 Menorrhagia type: with irregular cycle Chronic abdominal pain R10.9; G89.29 Morbid obesity E66.01 GERD (gastroesophageal reflux disease) K21.9 Esophagitis presence: esophagitis presence not specified Hypertension I10 Hypertension type: essential hypertension Nicotine dependence, cigarettes, with unspecified nicotine-induced disorders F17.219
[2020-01-04 12:26] VITALS: BP 134/88; PULSE 56; RESP 18; TEMP 37.1; O2SAT 97
== END 2020-01-04 12:40 | disposition home or self-care (01) | DRG 742 ==
LOC: ER 15:02 → MEDSURG 15:13
PROVIDERS: Family Medicine; Obstetrics & Gynecology; Admitting Provider Family Medicine; PCP Family Medicine; Visit Provider Family Medicine
PROC: 0UT9FZZ Resection of Uterus, Via Natural or Artificial Opening With Percutaneous Endoscopic Assistance (ICD-10-PCS; principal; 2020-01-03 08:40)
PROC: 0TJB8ZZ Inspection of Bladder, Via Natural or Artificial Opening Endoscopic (ICD-10-PCS; CPT 52000; 2020-01-03 08:40)
DX: D25.1 Intramural leiomyoma of uterus (principal); Z68.41 Body mass index [BMI] 40.0-44.9, adult; I10 Essential (primary) hypertension; K21.9 Gastro-esophageal reflux disease without esophagitis; E66.01 Morbid (severe) obesity due to excess calories; F17.210 Nicotine dependence, cigarettes, uncomplicated; E87.6 Hypokalemia; N92.1 Excessive and frequent menstruation with irregular cycle; R11.2 Nausea with vomiting, unspecified; G89.29 Other chronic pain; R10.9 Unspecified abdominal pain
CPT/HCPCS: 12345; 36415; 80048; 80053; 81001; 81025; 82550; 83605; 83690; 85025; 85610; 85730; 86850; 86900; 88307; 96375; 99283; C9113; G0378; J0690; J1100; J1885; J2001; J2060; J2250; J2270; J2405; J2704; J2710; J2765; J3010; J3490; J7030; J8597; Q0169

== ENCOUNTER 2020-01-21 17:24 | Emergency (ER) | payer SELFPAY ==
[2020-01-21 17:25] VITALS: BP 146/87; PULSE 67; RESP 18; TEMP 36.9; O2SAT 98; BMI 40.3
--- NOTE | 2020-01-21 17:30 | ED_ITS ---
HPI - Abdominal Pain General: Chief Complaint: Abdominal Pain Stated Complaint: ABD PAIN S/P HYSTERECTOMY Time Seen by Provider: 01/21/20 17:26 Source: patient and EMS Mode of arrival: EMS Limitations: no limitations History of Present Illness: HPI narrative: 44-year-old female has had chronic abdominal pain for months. Patient had her uterus taken out 2 weeks ago as a thought that was the cause of her pain. States she is continued to have pain and had worsening pain today. States pain is a 9 out of 10. She denies any fevers. She denies any worsening or improving factors. She states she is also had chronic nausea over the last month as well. MD elicited complaint: abdominal pain Onset (ago): day(s) Pain Consistency: constant Location: Diffuse Severity: severe Quality: sharp Radiation: none Exacerbating factors: nothing Relieving factors: nothing Associated Symptoms: Denies chills, dysuria and fever(s) Related Data: Date of Last Menstrual Period: 12/31/19 Review of Systems Const: Denies: fever(s), chills, body aches or change in appetite Eyes: Denies: blurry vision or eye discomfort ENMT: Denies: throat pain or dental pain Card: Denies: chest pain Resp: Denies: dyspnea GI: Reports: abdominal pain : Denies: dysuria Musc: Denies: neck pain or back pain Skin/Breast: Denies: rash Neuro: Denies: headache(s) Psych: Denies: depression Julien/Lymph: Denies: easy bruising All/Imm: Denies: urticaria PFS ED PFSH: Medical History GERD (gastroesophageal reflux disease) -on PPI Hypertension -initially hypertensive likely due to pain, N/V; now normotensive -continue to monitor vital signs -continue oral antihypertensives; off BB due to bradycardia Menorrhagia Morbid obesity -BMI-41 kg/m2 Nicotine dependence, cigarettes, with unspecified nicotine-induced disorders -1 PPD -smoking cessation encouraged Uterine fibroid -reviewed imaging done 12/13 showing enlarged bulky uterus with uterine leiomyomata, cystic degeneration of uterine leiomyomata. No other acute abdominal or pelvic pathology noted. Has had multiple imaging studies including ultrasound and MRI all of which confirm uterine leiomyoma -Has been following up with gynecology with plan for hysterectomy; surgery delayed due to coronavirus pandemic -previously treated with Depo due to menorrhagia with good response (Jun and Aug) -has c/o abdominal fullness, pelvic pressure, vaginal bleeding, N/V; resolved following surgery -Chemical Inspector consult by Dr. Sid adrian -H/H stable; continue to monitor -pain control, antiemetics as needed -VSS other than noted bradycardia, asymptomatic -s/p laparoscopic assisted vaginal hysterectomy with bilateral salpingectomy: POD # 1 -Onael catheter discontinued, able to void without difficulty -tolerating diet Surgical History S/P cholecystectomy (~2014) laparoscopic S/P dilatation and curettage (~1996) Tubal ligation status (~2009) Scope - falope ring Family History Grandmother Diabetes maternal great Lung cancer maternal Family/Other Diabetes maternal great uncle, cousin Mother Hypertension Stroke Other Cancer Social History Smoking and tobacco status: current every day smoker cigarettes Packs smoked per day: 1 Alcohol intake: former Last substance use date: 07/18/19 Household members: family Housing: House Female Reproductive History: Date of last menstrual period: 12/31/19 Para: 1 Spontaneous abortions: No Physical Exam Const: COMMON NORMALS: no acute distress, patient oriented x3 and healthy appearing HENMT: COMMON NORMALS: normocephalic and atraumatic HEAD & SCALP: normocephalic and atraumatic Eye: COMMON NORMALS: Equal, round and reactive pupils present and EOMs intact bilaterally PUPIL: Yes Equal, round and reactive pupils present Neck/C-Spine: COMMON NORMALS: full ROM and supple Chest: COMMONS NORMALS: normal inspection of the chest and normal palpation of entire chest wall Resp: COMMON NORMALS: normal respiratory effort, No retractions, No use of accessory muscles and clear to auscultation bilaterally AUSCULTATION: clear to auscultation bilaterally Cardio: COMMON NORMALS: regular rate, regular rhythm and No murmurs present (Cardio) RATE: regular rate RHYTHM: regular rhythm GI: COMMON NORMALS: Normal to inspection, nondistended, normoactive bowel sounds present, Soft to palpation and no masses PALPATION: Yes Soft to palpation OTHER: Diffuse tenderness Extremity: COMMON NORMALS: normal to inspection and full ROM Neuro: COMMON NORMALS: patient oriented x3, moves all extremities and no focal motor deficits Psych: COMMON NORMALS: mental status grossly normal, Normal thought process present and cooperative THOUGHT PROCESS: Normal thought process present Skin: COMMON NORMALS: no rashes or lesions noted and no wounds GENERAL SKIN EXAM: no rashes or lesions noted Course Vital Signs: Vital signs: Vital Signs Temperature 98.4 F 01/21/20 17:25 Pulse Rate 75 01/21/20 20:55 Respiratory Rate 19 H 01/21/20 20:55 Blood Pressure 126/88 01/21/20 20:55 Pulse Oximetry 96 01/21/20 20:55 MDM - Abdominal Pain MDM Narrative: Medical decision making narrative: Patient presents here with abdominal pain that is chronic in nature. Patient's lab work and CT scan here are normal. Patient has an appoint with Dr. Lau tomorrow and is to follow-up then. She is return if worsening. Lab Data: Labs: Lab Results 01/21/20 01/21/20 01/21/20 Range/Units 17:41 17:41 18:30 WBC 13.2 H (4.0-10.0) 10^3/ uL RBC 4.67 (4.1-5.3) 10^6/u L Hgb 14.4 (11.5-15.3) g/dL Hct 43.2 (37.0-47.0) % MCV 92.5 (81-99) fL MCH 30.8 (28.0-34.0) pg MCHC 33.3 (30.0-36.0) g/dL RDW 12.7 (12.1-15.1) % Plt Count 391 (130-400) 10^3/c mm MPV 9.5 (7.4-10.4) fL Neut % (Auto) 84.8 % Lymph % (Auto) 10.9 % [place] % (Auto) 3.2 % Eos % (Auto) 0.4 % Baso % (Auto) 0.5 % Neut # (Auto) 11.2 H (1.8-7.7) 10^3/u L Lymph # (Auto) 1.4 (0.8-4.8) 10^3/u L [place] # (Auto) 0.4 (0.2-0.9) 10^3/u L Eos # (Auto) 0.1 (0.0-0.8) 10^3/u L Baso # (Auto) 0.1 (0.0-0.1) 10^3/u L Nucleated RBC % (a uto) 0 % Nucleated RBCs # 0.0 /100WBC Sodium 140 (136-145) mmol/L Potassium 3.7 (3.5-5.1) mmol/L Chloride 106 (98-107) mmol/L Carbon Dioxide 22 (22-29) mmol/L Anion Gap 15.7 (5-19) BUN 7 (6-20) mg/dL Creatinine 0.8 (0.5-0.9) mg/dL GFR Calculation 77.9 L (90-130) mL/min Glucose 139 H (65-115) mg/dL Calculated Osmolal ity 288 (285-295) mOsm/k g Calcium 9.8 (8.5-10.5) mg/dL Total Bilirubin 0.4 (0.15-1.2) mg/dL AST 20 (0-32) U/L ALT 17 (0-33) U/L Alkaline Phosphata se 58 (35-105) IU/L Total Protein 7.7 (6.6-8.7) g/dL Albumin 4.5 (3.5-5.2) g/dL Globulin 3.2 (1.3-4.6) g/dL Lipase 30 (13-60) U/L Urine Color Yellow (Yellow) Urine Appearance Sl hazy (CLEAR) Urine pH 9 H (5-7) Ur Specific Gravit y 1.015 (1.005-1.030) Urine Protein Neg (Negative) Urine Glucose (UA) Norm (Normal) Urine Ketones 1+ H (Negative) Urine Blood Neg (Negative) Urine Nitrate Negative (Negative) Urine Bilirubin Neg (NEGATIVE) Prot Sulfosalicyli c Acd Negative (Negative) Urine Urobilinogen Norm (Negative) mg/dL Ur Leukocyte Brittany ase Negative (Negative) Urine RBC 0-4 H (0-2) /hpf Urine WBC 0-4 H (0-5) /hpf Ur Squamous Epith Cells 15-25 H (0-5) Amorphous Sediment Not Reportable Urine Bacteria Trace (NONE) Hyaline Casts 0-4 H Urine Mucus Trace Imaging Data ^: CT Abd/Pel: Attestation: I personally reviewed and interpreted this imaging study as follow s: Radiologist's impression: [address] [address] [address] Scan Report Signed Patient: China Batres Unit #: [id number] : 1975 Age/Sex: 44 / F ADM Date: 01/21/20 Loc: ER Room/Bed: Attending Dr: Ordering Provider/Ordering MD: Melvin Montoya MD Date of Service: 01/21/20 Procedure(s): CT abdomen pelvis w con* [id number] Accession Number(s): [id number] Report Number: [id number] PROCEDURE INFORMATION: Exam: CT Abdomen And Pelvis With Contrast Exam date and time: 01/21/2020 6:04 PM Age: 44 years old Clinical indication: Abdominal pain; Generalized; Prior surgery; Surgery date: <1 month; Patient HX: C/O abd pain w n/v - hyst 01/02 TECHNIQUE: Imaging protocol: Computed tomography of the abdomen and pelvis with intravenous contrast. Radiation optimization: All CT scans at this facility use at least one of these dose optimization techniques: automated exposure control; mA and/or kV adjustment per patient size (includes targeted exams where dose is matched to clinical indication); or iterative reconstruction. Contrast material: OMNI 300; Contrast volume: 95 ml; Contrast route: INTRAVENOUS (IV); COMPARISON: CT abdomen pelvis wo/w [id number] 12/14/2019 11:51 PM RADIATION DOSE METRICS: Total DLP (mGy-cm): 1717.53 FINDINGS: Lungs: Limited assessment lung bases without visible evidence of active cardiopulmonary process. Liver: Unremarkable. No mass. Gallbladder and bile ducts: Status post cholecystectomy. Pancreas: Normal. No ductal dilation. Spleen: Normal. No splenomegaly. Adrenals: Normal. No mass. Kidneys and ureters: Normal. No hydronephrosis. Stomach and bowel: Diverticulosis coli without visible evidence of diverticulitis. Appendix: No evidence of appendicitis. Intraperitoneal space: Unremarkable. No free air. No significant fluid collection. Vasculature: Unremarkable. No abdominal aortic aneurysm. Lymph nodes: Unremarkable. No enlarged lymph nodes. Bladder: Unremarkable as visualized. Reproductive: Status post hysterectomy. Both ovaries unremarkable. Simple right ovarian dominant physiologic cyst measuring 21 mm. No follow-up recommended. No visible evidence of complication post hysterectomy. Bones/joints: Unremarkable. No acute fracture. Soft tissues: Unremarkable. CT/CT abdomen pelvis w con* [id number] IMPRESSION: No visible evidence of active or acute abdominal or pelvic pathologic process. Discharge Plan Discharge Patient Disposition: Home, Self-Care Clinical Impression: Abdominal pain Qualifiers: Abdominal location: generalized Qualified Code(s): R10.84 - Generalized abdominal pain Condition: Stable Prescriptions: No Action Protonix [address] for susp in packet 40 mg PO DAILY RF: 0 metoclopramide HCl [Reglan] 10 mg tablet 10 mg PO Q6H PRNRF: 0 fluconazole [Diflucan] 150 mg tablet 150 mg PO DAILY Qty: 2 RF: 0 cetirizine 10 mg capsule 10 mg PO DAILY RF: 0 ondansetron HCl 8 mg tablet 8 mg PO Q8H PRN (Reason: Nausea) 30 Days Qty: 90 RF: 1 lorazepam [Ativan] 0.5 mg tablet 0.5 mg PO BID PRN (Reason: nausea and vomiting) Qty: 60 RF: 0 promethazine 25 mg tablet 25 mg PO BEDTIME PRN (Reason: nausea) RF: 0 amlodipine 10 mg Tablet 10 mg PO DAILY RF: 0 ibuprofen 800 mg Tablet 800 mg PO TID Qty: 90 RF: 0 oxycodone-acetaminophen 5-325 mg Tablet 1 - 2 tab PO Q6H PRN (Reason: Moderate To Severe Pain) Qty: 20 RF: 0 docusate sodium 100 mg Capsule 100 mg PO BID 30 Days Qty: 60 RF: 0 Discharge Orders: Discharge Order (Routine); Ordered 01/21/20 Ordered By: Melvin Montoya Referrals: Audra Amaya DO [Primary Care Provider] - 1-3 days Discharge Diet: Advance as tolerated Discharge Activity: Resume usual activity Patient Instructions: Abdominal Pain (ED) Discharge Date/Time: 01/21/20 21:06 Coding Level of Care Code ED [facility] Nurse for [place] Fwd Exam Comprehensive
[2020-01-21] MEDS: diphenhydrAMINE 50 mg/mL SDV 1mL IVP (18:01)
[2020-01-21] MEDS: sodium chloride 0.9% 1,000 ML 999 ML IV (18:02)
[2020-01-21] MEDS: metoclopramide 5 mg/mL SDV 2 mL 10 MG IVP (18:02)
[2020-01-21 18:09] LABS: Basophils # 0.1 10^3/uL (0.0-0.1); Basophils % 0.5 %; Eosinophils # 0.1 10^3/uL (0.0-0.8); Eosinophils % 0.4 %; Hematocrit 43.2 % (37.0-47.0); Hemoglobin 14.4 g/dL (11.5-15.3); Lymphocytes # 1.4 10^3/uL (0.8-4.8); Lymphocytes % 10.9 %; Mean Corpuscular HGB Conc 33.3 g/dL (30.0-36.0); Mean Corpuscular Hemoglobin 30.8 pg (28.0-34.0); Mean Corpuscular Volume 92.5 fL (81-99); Mean Platelet Volume 9.5 fL (7.4-10.4); Monocytes # 0.4 10^3/uL (0.2-0.9); Monocytes % 3.2 %; Neutrophils # 11.2 10^3/uL (1.8-7.7); Neutrophils % 84.8 %; Nucleated Red Blood Cells % 0 %; Platelet Count 391 10^3/cmm (130-400); Red Blood Count 4.67 10^6/uL (4.1-5.3); Red Cell Distribution Width 12.7 % (12.1-15.1); White Blood Count 13.2 10^3/uL (4.0-10.0)
[2020-01-21 18:29] LABS: Alanine Aminotransferase 17 U/L (0-33); Albumin Level 4.5 g/dL (3.5-5.2); Alkaline Phosphatase 58 IU/L (35-105); Anion Gap 15.7 (5-19); Aspartate Amino Transferase 20 U/L (0-32); Blood Urea Nitrogen 7 mg/dL (6-20); Calcium 9.8 mg/dL (8.5-10.5); Carbon Dioxide 22 mmol/L (22-29); Chloride 106 mmol/L (98-107); Globulin 3.2 g/dL (1.3-4.6); Glomerular Filtration Rate 77.9 mL/min (90-130); Glucose 139 mg/dL (65-115); Lipase 30 U/L (13-60); Osmolality Calculated 288 mOsm/kg (285-295); Potassium 3.7 mmol/L (3.5-5.1); Sodium 140 mmol/L (136-145); Total Bilirubin 0.4 mg/dL (0.15-1.2); Total Protein 7.7 g/dL (6.6-8.7)
[2020-01-21] MEDS: iohexol 300 mg/mL 100 mL Btl IV (18:40)
[2020-01-21 19:03] LABS: Glucose Urine UA Norm (Normal); Protein Urine Neg (Negative); Specific Gravity, Urine 1.015 (1.005-1.030); Urine Appearance SL Hazy (CLEAR); Urine Color Yellow (Yellow); pH Urine 9 (5-7)
[2020-01-21 19:04] LABS: Add Urine Microscopic? YES; Bilirubin Urine Neg (NEGATIVE); Blood Urine Neg (Negative); Ketones Urine 1+ (Negative); Leukocyte Esterase Urine Negative (Negative); Nitrate Urine Negative (Negative); Sulfosalicylic Acid Urine Negative (Negative); Urobilinogen Urine Norm (Negative)
[2020-01-21 19:05] LABS: RBC Urine 0-4 /hpf (0-2); Squamous Epithelial Cell Urine 15-25 (0-5); WBC Urine 0-4 /hpf (0-5)
[2020-01-21 19:06] LABS: Add Urine Culture? No; Bacteria Urine TRACE; Hyaline Casts Urine 0-4; Mucus Urine TRACE
[2020-01-21 19:31] VITALS: RESP 18
[2020-01-21] MEDS: HYDROmorphone 1 mg/mL INJ 1 mL IVP (19:31)
[2020-01-21] MEDS: ondansetron 2 mg/ML SDV 2 mL 4 MG IVP (19:31)
[2020-01-21 20:55] VITALS: BP 126/88; PULSE 75; RESP 19; O2SAT 96
== END 2020-01-21 21:06 | disposition home or self-care (01) ==
PROVIDERS: Emergency Provider Emergency Medicine; PCP Family Medicine
DX: R10.84 Generalized abdominal pain (principal); I10 Essential (primary) hypertension; F17.210 Nicotine dependence, cigarettes, uncomplicated
CPT/HCPCS: 12345; 74177; 80053; 81001; 81003; 83690; 85025; 96361; 96374; 96375; 99283; J1170; J1200; J2405; J2765; J7030; Q9967

== ENCOUNTER 2020-01-26 16:07 | Observation (INO) | payer SELFPAY ==
[2020-01-26] VITALS (8 sets, daily range): BP systolic 116–207; BP diastolic 65–115; PULSE 54–78; RESP 12–22; TEMP 36.4–37; O2SAT 94–99; BMI 37.1
--- NOTE | 2020-01-26 16:13 | XRR_ITS ---
PROCEDURE INFORMATION: Exam: XR Chest, 1 View Exam date and time: 01/26/2020 5:17 PM Age: 44 years old Clinical indication: Chest pain; Additional info: Cp TECHNIQUE: Imaging protocol: XR of the chest Views: 1 view. COMPARISON: CR XR chest 1V portable [id number] 10/24/2019 4:08 PM FINDINGS: Lungs: Unremarkable. No consolidation. Pleural space: Unremarkable. No pleural effusion. No pneumothorax. Heart/Mediastinum: Unremarkable. No cardiomegaly. Bones/joints: Unremarkable. XR/XR chest 1V portable [id number] IMPRESSION: No acute findings.
--- NOTE | 2020-01-26 16:14 | ECG_ITS ---
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 Measurements Intervals [place] Rate: 65 P: 59 WV: 146 QRS: 63 QRSD: 120 T: 48 QT: 425 QTc: 442 Interpretive Statements SINUS RHYTHM POSSIBLE RIGHT VENTRICULAR CONDUCTION DELAY [RSR (QR) IN V1/V2] Compared to ECG 01/26/2020 16:37:53 Sinus bradycardia no longer present Incomplete right bundle-branch block no longer present Electronically Signed On 01-26-2020 19:05:13 CDT by John García M.D. [id number]
[2020-01-26] MEDS: LORazepam 2 mg/mL INJ 1 mL 1 MG IVP (16:55)
[2020-01-26 16:57] LABS: Basophils # 0.1 10^3/uL (0.0-0.1); Basophils % 0.4 %; Eosinophils % 0.2 %; Hematocrit 45.7 % (37.0-47.0); Hemoglobin 15.6 g/dL (11.5-15.3); Lymphocytes # 2.1 10^3/uL (0.8-4.8); Lymphocytes % 14.7 %; Mean Corpuscular HGB Conc 34.1 g/dL (30.0-36.0); Mean Corpuscular Hemoglobin 30.1 pg (28.0-34.0); Mean Corpuscular Volume 88.1 fL (81-99); Mean Platelet Volume 10.1 fL (7.4-10.4); Monocytes # 0.5 10^3/uL (0.2-0.9); Monocytes % 3.6 %; Neutrophils # 11.23 10^3/uL (1.8-7.7); Neutrophils % 80.8 %; Nucleated Red Blood Cells % 0 %; Platelet Count 443 10^3/cmm (130-400); Red Blood Count 5.19 10^6/uL (4.1-5.3); White Blood Count 13.9 10^3/uL (4.0-10.0)
[2020-01-26] MEDS: ondansetron 2 mg/ML SDV 2 mL 8 MG IVP (16:58)
--- NOTE | 2020-01-26 16:59 | W.ED.ABDPA2 ---
Documented by User: Isabel Bhakta MD 01/27/20 06:06 HPI - Abdominal Pain General: Chief Complaint: Abdominal Pain Stated Complaint: abdominal pain Time Seen by Provider: 01/26/20 16:27 History of Present Illness: HPI narrative: This patient is a 44-year-old female presenting today with vomiting and abdominal pain. She reports this is been an intermittent problem since 2008. This been more severe recently. She had a hysterectomy 2 weeks ago related to fibroids. She is doing well from that perspective. She was seen here on Wednesday with the symptoms that she has today. She was treated and sent home. She said she continued to vomit through Wednesday and Wednesday. She felt a little bit better on Wednesday but the symptoms started again yesterday morning. She has been referred to see Dr. Valladares but has not had an appointment yet. She has had evaluations for this in the past including endoscopy which showed gastritis . 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 She is actively vomiting and in obvious pain during my exam. MD elicited complaint: abdominal pain Onset (ago): year(s) (Current episode for 1 and half days) Pain Consistency: constant Location: Diffuse Severity: severe Quality: cramping and sharp Radiation: none Exacerbating factors: nothing Relieving factors: nothing Associated Symptoms: Reports nausea and vomiting; Denies chills and fever(s) Related Data: Date of Last Menstrual Period: 12/31/19 Review of Systems General: Reports: 10 or more systems reviewed and unremarkable except in HPI and below Const: Reports: malaise; Denies: fever(s), chills or fatigue Eyes: Denies: change in vision ENMT: Denies: odynophagia Card: Denies: chest pain or swelling of feet/ankles Resp: Denies: dyspnea, productive cough or non-productive cough GI: Reports: abdominal pain, nausea and vomiting : Denies: flank pain or difficulty voiding Musc: Denies: neck pain or back pain Skin/Breast: Denies: rash Neuro: Denies: headache(s), numbness in extremities or weakness in extremities Julien/Lymph: Denies: easy bruising or easy bleeding PFS ED PFSH: Medical History (Updated 01/27/20 @ 02:37 by Elena Michelle MD) GERD (gastroesophageal reflux disease) -on PPI History of anemia Hypertension Morbid obesity Nicotine dependence, cigarettes, with unspecified nicotine-induced disorders PTSD (post-traumatic stress disorder) Surgical History (Updated 01/27/20 @ 00:55 by Elena Michelle MD) History of hysterectomy (~01/03/20) with bilateral salpingectomy, Dr Yanes, done for menorrhagia and uterine fibroid S/P cholecystectomy (~2014) laparoscopic S/P dilatation and curettage (~1996) Tubal ligation status (~2009) Scope - falope ring Family History Grandmother Diabetes maternal great Lung cancer maternal Family/Other Diabetes maternal great uncle, cousin Mother Hypertension Stroke Other Cancer Social History (Updated 01/27/20 @ 00:51 by Elena Michelle MD) Smoking and tobacco status: current every day smoker cigarettes Packs smoked per day: 1 Alcohol intake: former Substance/Drug Use: current Substance/Drug use type: Marijuana Female Reproductive History: Date of last menstrual period: 12/31/19 Para: 1 Spontaneous abortions: No Physical Exam Const: COMMON NORMALS: patient oriented x3 and alert GENERAL APPEARANCE: in distress and anxious HENMT: HEAD & SCALP: normal to inspection FACE & SINUS: normal facial exam Eye: GENERAL EYE: appearance normal, both eyes and all related structures Neck/C-Spine: COMMON NORMALS: supple, no meningeal signs and no JVD Chest: COMMONS NORMALS: normal inspection of the chest Resp: COMMON NORMALS: normal respiratory effort, No use of accessory muscles and clear to auscultation bilaterally AUSCULTATION: clear to auscultation bilaterally Cardio: COMMON NORMALS: no JVD, regular rate, regular rhythm and No murmurs present (Cardio) RATE: regular rate RHYTHM: regular rhythm GI: INSPECTION: Yes normal to inspection PALPATION: Yes Tenderness to palpation present (GI) (Diffuse) Back/Pelvis: COMMON NORMALS: thoracic and lumbar spine normal to inspection Extremity: COMMON NORMALS: normal to inspection Neuro: COMMON NORMALS: patient oriented x3, moves all extremities, no focal motor deficits and no sensory deficits noted SENSORIUM/ORIENTATION: Yes alert MENINGEAL SIGNS: Yes no meningeal signs Psych: COMMON NORMALS: mental status grossly normal, cooperative and normal affect Skin: COMMON NORMALS: no rashes or lesions noted and turgor normal GENERAL SKIN EXAM: no rashes or lesions noted and turgor normal Course Vital Signs: Vital signs: Vital Signs Temperature 98.3 F 01/27/20 04:00 Pulse Rate 73 01/27/20 04:00 Respiratory Rate 18 01/27/20 04:00 Blood Pressure 144/84 01/27/20 04:00 Pulse Oximetry 98 01/27/20 04:00 MDM - Abdominal Pain Lab Data: Labs: Lab Results 01/26/20 01/26/20 01/26/20 Range/Units 16:39 17:20 17:20 WBC 13.9 H (4.0-10.0) 10^3/ uL RBC 5.19 (4.1-5.3) 10^6/u L Hgb 15.6 H (11.5-15.3) g/dL Hct 45.7 (37.0-47.0) % MCV 88.1 (81-99) fL MCH 30.1 (28.0-34.0) pg MCHC 34.1 (30.0-36.0) g/dL RDW 12.0 L (12.1-15.1) % Plt Count 443 H (130-400) 10^3/c mm MPV 10.1 (7.4-10.4) fL Neut % (Auto) 80.8 % Lymph % (Auto) 14.7 % [place] % (Auto) 3.6 % Eos % (Auto) 0.2 % Baso % (Auto) 0.4 % Neut # (Auto) 11.23 H (1.8-7.7) 10^3/u L Lymph # (Auto) 2.1 (0.8-4.8) 10^3/u L [place] # (Auto) 0.5 (0.2-0.9) 10^3/u L Eos # (Auto) 0.0 (0.0-0.8) 10^3/u L Baso # (Auto) 0.1 (0.0-0.1) 10^3/u L Nucleated RBC % (a uto) 0 % Nucleated RBCs # 0.0 /100WBC Sodium (136-145) mmol/L Potassium (3.5-5.1) mmol/L Chloride (98-107) mmol/L Carbon Dioxide (22-29) mmol/L Anion Gap (5-19) BUN (6-20) mg/dL Creatinine (0.5-0.9) mg/dL GFR Calculation (90-130) mL/min Glucose (65-115) mg/dL Calculated Osmolal ity (285-295) mOsm/k g Calcium (8.5-10.5) mg/dL Total Bilirubin (0.15-1.2) mg/dL AST (0-32) U/L ALT (0-33) U/L Alkaline Phosphata se (35-105) IU/L Troponin T Baselin e (0-10) ng/L Troponin T 120 Min rincon (0-10) ng/L Delta Troponin T (0-10) ABS# Total Protein (6.6-8.7) g/dL Albumin (3.5-5.2) g/dL Globulin (1.3-4.6) g/dL Lipase (13-60) U/L Urine Color Yellow (Yellow) Urine Appearance Clear (CLEAR) Urine pH 9 H (5-7) Ur Specific Gravit y 1.015 (1.005-1.030) Urine Protein Neg (Negative) Urine Glucose (UA) Norm (Normal) Urine Ketones 1+ H (Negative) Urine Blood Neg (Negative) Urine Nitrate Negative (Negative) Urine Bilirubin Neg (NEGATIVE) Prot Sulfosalicyli c Acd Negative (Negative) Urine Urobilinogen Norm (Negative) mg/dL Ur Leukocyte Brittany ase Negative (Negative) Urine Opiates Scre en Positive H (Negative) ng/mL Ur Barbiturates Sc reen Negative (Negative) ng/mL Ur Phencyclidine S crn Negative (Negative) ng/mL Ur Amphetamines Sc reen Negative (Negative) ng/mL U Benzodiazepines Scrn Positive H (Negative) ng/mL Urine Cocaine Scre en Negative (Negative) ng/mL U Marijuana (THC) Screen Positive H (Negative) ng/mL 01/26/20 01/26/20 01/26/20 Range/Units 17:22 17:22 19:22 WBC (4.0-10.0) 10^3/ uL RBC (4.1-5.3) 10^6/u L Hgb (11.5-15.3) g/dL Hct (37.0-47.0) % MCV (81-99) fL MCH (28.0-34.0) pg MCHC (30.0-36.0) g/dL RDW (12.1-15.1) % Plt Count (130-400) 10^3/c mm MPV (7.4-10.4) fL Neut % (Auto) % Lymph % (Auto) % [place] % (Auto) % Eos % (Auto) % Baso % (Auto) % Neut # (Auto) (1.8-7.7) 10^3/u L Lymph # (Auto) (0.8-4.8) 10^3/u L [place] # (Auto) (0.2-0.9) 10^3/u L Eos # (Auto) (0.0-0.8) 10^3/u L Baso # (Auto) (0.0-0.1) 10^3/u L Nucleated RBC % (a uto) % Nucleated RBCs # /100WBC Sodium 136 (136-145) mmol/L Potassium 3.3 L (3.5-5.1) mmol/L Chloride 100 (98-107) mmol/L Carbon Dioxide 23 (22-29) mmol/L Anion Gap 16.3 (5-19) BUN 10 (6-20) mg/dL Creatinine 0.7 (0.5-0.9) mg/dL GFR Calculation 90.9 (90-130) mL/min Glucose 141 H (65-115) mg/dL Calculated Osmolal ity 280 L (285-295) mOsm/k g Calcium 9.7 (8.5-10.5) mg/dL Total Bilirubin 0.5 (0.15-1.2) mg/dL AST 19 (0-32) U/L ALT 19 (0-33) U/L Alkaline Phosphata se 57 (35-105) IU/L Troponin T Baselin e 6 (0-10) ng/L Troponin T 120 Min rincon 6.00 (0-10) ng/L Delta Troponin T 0 (0-10) ABS# Total Protein 7.5 (6.6-8.7) g/dL Albumin 4.5 (3.5-5.2) g/dL Globulin 3.0 (1.3-4.6) g/dL Lipase 37 (13-60) U/L Urine Color (Yellow) Urine Appearance (CLEAR) Urine pH (5-7) Ur Specific Gravit y (1.005-1.030) Urine Protein (Negative) Urine Glucose (UA) (Normal) Urine Ketones (Negative) Urine Blood (Negative) Urine Nitrate (Negative) Urine Bilirubin (NEGATIVE) Prot Sulfosalicyli c Acd (Negative) Urine Urobilinogen (Negative) mg/dL Ur Leukocyte Brittany ase (Negative) Urine Opiates Scre en (Negative) ng/mL Ur Barbiturates Sc reen (Negative) ng/mL Ur Phencyclidine S crn (Negative) ng/mL Ur Amphetamines Sc reen (Negative) ng/mL U Benzodiazepines Scrn (Negative) ng/mL Urine Cocaine Scre en (Negative) ng/mL U Marijuana (THC) Screen (Negative) ng/mL Discharge Plan Discharge Admit Provider: Elena Michelle Condition: Good Discharge Date/Time: 01/26/20 20:59 Coding Level of Care Code 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 Operator for Chg Fwd Exam Comprehensive Documented by User: Mark White DO 01/27/20 00:57 HPI - Abdominal Pain General: Chief Complaint: Abdominal Pain Stated Complaint: abdominal pain Time Seen by Provider: 01/26/20 16:27 FORMERLY [facility], [facility] ED PFS: Medical History (Updated 01/27/20 @ 02:37 by Elena Michelle MD) GERD (gastroesophageal reflux disease) -on PPI History of anemia Hypertension Morbid obesity Nicotine dependence, cigarettes, with unspecified nicotine-induced disorders PTSD (post-traumatic stress disorder) Surgical History (Updated 01/27/20 @ 00:55 by Elena Michelle MD) History of hysterectomy (~01/03/20) with bilateral salpingectomy, Dr Yanes, done for menorrhagia and uterine fibroid S/P cholecystectomy (~2014) laparoscopic S/P dilatation and curettage (~1996) Tubal ligation status (~2009) Scope - falope ring Family History Grandmother Diabetes maternal great Lung cancer maternal Family/Other Diabetes maternal great uncle, cousin Mother Hypertension Stroke Other Cancer Social History (Updated 01/27/20 @ 00:51 by Elena Michelle MD) Smoking and tobacco status: current every day smoker cigarettes Packs smoked per day: 1 Alcohol intake: former Substance/Drug Use: current Substance/Drug use type: Marijuana Course Vital Signs: Vital signs: Vital Signs Temperature 98.3 F 01/27/20 04:00 Pulse Rate 73 01/27/20 04:00 Respiratory Rate 18 01/27/20 04:00 Blood Pressure 144/84 01/27/20 04:00 Pulse Oximetry 98 01/27/20 04:00 MDM - Abdominal Pain MDM Narrative: Medical decision making narrative: Spoke with Dr. Sanchez about this patient. She was checked out to me by Dr. Bhakta. Is a 44-year-old female with intractable vomiting, and continued belly pain. She has a leukocytosis. Her potassium was a bit low. She had vomited here despite Zofran, Haldol, and some pain medication. She was also quite hypertensive with blood pressures reaching 200+ systolic. After pain controlled, with more morphine, her blood pressure is now 120/57. Her heart rate 70. She states she feels much better. She will come in for observation. Lab Data: Labs: Lab Results 01/26/20 01/26/20 01/26/20 Range/Units 16:39 17:20 17:20 WBC 13.9 H (4.0-10.0) 10^3/ uL RBC 5.19 (4.1-5.3) 10^6/u L Hgb 15.6 H (11.5-15.3) g/dL Hct 45.7 (37.0-47.0) % MCV 88.1 (81-99) fL MCH 30.1 (28.0-34.0) pg MCHC 34.1 (30.0-36.0) g/dL RDW 12.0 L (12.1-15.1) % Plt Count 443 H (130-400) 10^3/c mm MPV 10.1 (7.4-10.4) fL Neut % (Auto) 80.8 % Lymph % (Auto) 14.7 % [place] % (Auto) 3.6 % Eos % (Auto) 0.2 % Baso % (Auto) 0.4 % Neut # (Auto) 11.23 H (1.8-7.7) 10^3/u L Lymph # (Auto) 2.1 (0.8-4.8) 10^3/u L [place] # (Auto) 0.5 (0.2-0.9) 10^3/u L Eos # (Auto) 0.0 (0.0-0.8) 10^3/u L Baso # (Auto) 0.1 (0.0-0.1) 10^3/u L Nucleated RBC % (a uto) 0 % Nucleated RBCs # 0.0 /100WBC Sodium (136-145) mmol/L Potassium (3.5-5.1) mmol/L Chloride (98-107) mmol/L Carbon Dioxide (22-29) mmol/L Anion Gap (5-19) BUN (6-20) mg/dL Creatinine (0.5-0.9) mg/dL GFR Calculation (90-130) mL/min Glucose (65-115) mg/dL Calculated Osmolal ity (285-295) mOsm/k g Calcium (8.5-10.5) mg/dL Total Bilirubin (0.15-1.2) mg/dL AST (0-32) U/L ALT (0-33) U/L Alkaline Phosphata se (35-105) IU/L Troponin T Baselin e (0-10) ng/L Troponin T 120 Min rincon (0-10) ng/L Delta Troponin T (0-10) ABS# Total Protein (6.6-8.7) g/dL Albumin (3.5-5.2) g/dL Globulin (1.3-4.6) g/dL Lipase (13-60) U/L Urine Color Yellow (Yellow) Urine Appearance Clear (CLEAR) Urine pH 9 H (5-7) Ur Specific Gravit y 1.015 (1.005-1.030) Urine Protein Neg (Negative) Urine Glucose (UA) Norm (Normal) Urine Ketones 1+ H (Negative) Urine Blood Neg (Negative) Urine Nitrate Negative (Negative) Urine Bilirubin Neg (NEGATIVE) Prot Sulfosalicyli c Acd Negative (Negative) Urine Urobilinogen Norm (Negative) mg/dL Ur Leukocyte Brittany ase Negative (Negative) Urine Opiates Scre en Positive H (Negative) ng/mL Ur Barbiturates Sc reen Negative (Negative) ng/mL Ur Phencyclidine S crn Negative (Negative) ng/mL Ur Amphetamines Sc reen Negative (Negative) ng/mL U Benzodiazepines Scrn Positive H (Negative) ng/mL Urine Cocaine Scre en Negative (Negative) ng/mL U Marijuana (THC) Screen Positive H (Negative) ng/mL 01/26/20 01/26/20 01/26/20 Range/Units 17:22 17:22 19:22 WBC (4.0-10.0) 10^3/ uL RBC (4.1-5.3) 10^6/u L Hgb (11.5-15.3) g/dL Hct (37.0-47.0) % MCV (81-99) fL MCH (28.0-34.0) pg MCHC (30.0-36.0) g/dL RDW (12.1-15.1) % Plt Count (130-400) 10^3/c mm MPV (7.4-10.4) fL Neut % (Auto) % Lymph % (Auto) % [place] % (Auto) % Eos % (Auto) % Baso % (Auto) % Neut # (Auto) (1.8-7.7) 10^3/u L Lymph # (Auto) (0.8-4.8) 10^3/u L [place] # (Auto) (0.2-0.9) 10^3/u L Eos # (Auto) (0.0-0.8) 10^3/u L Baso # (Auto) (0.0-0.1) 10^3/u L Nucleated RBC % (a uto) % Nucleated RBCs # /100WBC Sodium 136 (136-145) mmol/L Potassium 3.3 L (3.5-5.1) mmol/L Chloride 100 (98-107) mmol/L Carbon Dioxide 23 (22-29) mmol/L Anion Gap 16.3 (5-19) BUN 10 (6-20) mg/dL Creatinine 0.7 (0.5-0.9) mg/dL GFR Calculation 90.9 (90-130) mL/min Glucose 141 H (65-115) mg/dL Calculated Osmolal ity 280 L (285-295) mOsm/k g Calcium 9.7 (8.5-10.5) mg/dL Total Bilirubin 0.5 (0.15-1.2) mg/dL AST 19 (0-32) U/L ALT 19 (0-33) U/L Alkaline Phosphata se 57 (35-105) IU/L Troponin T Baselin e 6 (0-10) ng/L Troponin T 120 Min rincon 6.00 (0-10) ng/L Delta Troponin T 0 (0-10) ABS# Total Protein 7.5 (6.6-8.7) g/dL Albumin 4.5 (3.5-5.2) g/dL Globulin 3.0 (1.3-4.6) g/dL Lipase 37 (13-60) U/L Urine Color (Yellow) Urine Appearance (CLEAR) Urine pH (5-7) Ur Specific Gravit y (1.005-1.030) Urine Protein (Negative) Urine Glucose (UA) (Normal) Urine Ketones (Negative) Urine Blood (Negative) Urine Nitrate (Negative) Urine Bilirubin (NEGATIVE) Prot Sulfosalicyli c Acd (Negative) Urine Urobilinogen (Negative) mg/dL Ur Leukocyte Brittany ase (Negative) Urine Opiates Scre en (Negative) ng/mL Ur Barbiturates Sc reen (Negative) ng/mL Ur Phencyclidine S crn (Negative) ng/mL Ur Amphetamines Sc reen (Negative) ng/mL U Benzodiazepines Scrn (Negative) ng/mL Urine Cocaine Scre en (Negative) ng/mL U Marijuana (THC) Screen (Negative) ng/mL Discharge Plan Discharge Admit Provider: Elena Michelle Condition: Good Discharge Date/Time: 01/26/20 20:59 Coding Level of Care Code ED Blender Conveyor Operator for Chg Fwd Exam Comprehensive
[2020-01-26] MEDS: morphine 4 mg/mL SDV 1 mL IVP (17:08)
[2020-01-26] MEDS: sodium chloride 0.9% 1,000 ML 999 ML IV (17:09)
[2020-01-26 17:48] LABS: Alanine Aminotransferase 19 U/L (0-33); Albumin Level 4.5 g/dL (3.5-5.2); Alkaline Phosphatase 57 IU/L (35-105); Anion Gap 16.3 (5-19); Aspartate Amino Transferase 19 U/L (0-32); Blood Urea Nitrogen 10 mg/dL (6-20); Calcium 9.7 mg/dL (8.5-10.5); Carbon Dioxide 23 mmol/L (22-29); Chloride 100 mmol/L (98-107); Glomerular Filtration Rate 90.9 mL/min (90-130); Glucose 141 mg/dL (65-115); Lipase 37 U/L (13-60); Osmolality Calculated 280 mOsm/kg (285-295); Potassium 3.3 mmol/L (3.5-5.1); Sodium 136 mmol/L (136-145); Total Bilirubin 0.5 mg/dL (0.15-1.2); Total Protein 7.5 g/dL (6.6-8.7)
[2020-01-26 18:10] LABS: Add Urine Microscopic? NO
--- NOTE | 2020-01-26 18:14 | ECG_ITS ---
[facility] Test Date: 2020-01-26 Pat Name: China Batres Department: Room: Gender: Female Host Hostess: : 1975 Requested By: Melvin Montoya Order Number: [id number] Bonilla MD: John García M.D. Measurements Intervals [place] Rate: 58 P: 74 SC: 143 QRS: 79 QRSD: 119 T: 69 QT: 473 QTc: 467 Interpretive Statements SINUS BRADYCARDIA INCOMPLETE RIGHT BUNDLE BRANCH BLOCK [90+ ms QRS DURATION, TERMINAL R IN V1/V2, 40+ ms S IN I/aVL/V4/V5/V6] Compared to ECG 10/24/2019 18:04:37 Incomplete right bundle-branch block now present Intraventricular conduction delay no longer present Prolonged QT interval no longer present Electronically Signed On 01-26-2020 19:06:47 CDT by John García M.D. [id number]
[2020-01-26 18:16] LABS: Troponin(5th) Baseline 6 ng/L (0-10)
[2020-01-26 18:17] LABS: Bilirubin Urine Neg (NEGATIVE); Blood Urine Neg (Negative); Glucose Urine UA Norm (Normal); Ketones Urine 1+ (Negative); Leukocyte Esterase Urine Negative (Negative); Nitrate Urine Negative (Negative); Protein Urine Neg (Negative); Specific Gravity, Urine 1.015 (1.005-1.030); Sulfosalicylic Acid Urine Negative (Negative); Urine Appearance Clear (CLEAR); Urine Color Yellow (Yellow); Urobilinogen Urine Norm (Negative); pH Urine 9 (5-7)
[2020-01-26 18:29] LABS: Amphetamines Screen Urine Negative (Negative); Barbiturates Screen Urine Negative (Negative); Benzodiazepines Screen Urine Positive (Negative); Cocaine Screen Urine Negative (Negative); Opiate Screen Urine Positive (Negative); PCP Screen Urine Negative (Negative); THC Screen Urine Positive (Negative)
[2020-01-26] MEDS: haloperidol inj 5 mg/mL INJ 1 mL 2 MG IVP (18:36)
[2020-01-26] MEDS: HYDROmorphone 1 mg/mL INJ 1 mL IVP (19:00)
[2020-01-26] MEDS: hyDRALAzine 20 mg/mL INJ 1 mL 10 MG IVP (19:02)
[2020-01-26] MEDS: metoclopramide 5 mg/mL SDV 2 mL 10 MG IVP (19:04)
--- NOTE | 2020-01-26 19:10 | PC.NURSE ---
Introduced myself to patient, resting without complaints at this time. Bed in low position with call light in reach.
[2020-01-26 19:56] LABS: Troponin 5 2HR Delta 0 ABS# (0-10)
[2020-01-26 20:48] LABS: Lactic Sepsis W/Reflex 1.1 mmol/L (0.5-2.2)
[2020-01-26] MEDS: sodium chloride 0.9% 1,000 ML 125 ML IV (22:08)
--- NOTE | 2020-01-26 22:14 | ECG_ITS ---
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 Measurements Intervals [place] Rate: 57 P: 70 [place]: 151 QRS: 69 QRSD: 121 T: 61 QT: 488 QTc: 478 Interpretive Statements SINUS BRADYCARDIA POSSIBLE RIGHT VENTRICULAR CONDUCTION DELAY [RSR (QR) IN V1/V2] PROLONGED QT INTERVAL Compared to ECG 01/26/2020 18:44:50 Prolonged QT interval now present Sinus rhythm no longer present Electronically Signed On 01-27-2020 10:28:54 CDT by Gabe Lizarraga M.D. [id number]
--- NOTE | 2020-01-26 23:30 | P.HP_ITS ---
Providers/Chief Complaint Admitting Physician: Elena Michelle MD Primary Care Provider: Audra Amaya DO Chief Complaint: cp History of Present Illness China Batres is a 44 year old female who presented to the emergency room with intractable nausea and vomiting. Symptoms this time began about a week after she had a hysterectomy on January 02 of this year. She has had a few visits to clinics, seeing Dr. Lau and her PCP Dr. Amaya. She is also had a few visits to the emergency room. She is nauseated every day starting in the morning. She has intermittent episodes of vomiting that are associated with hot flashes. She reports no bowel movements have been okay although sometimes she feels like she has to go and instead she starts vomiting. She denies any diff iculty with urination. Emesis is usually brown and foodstuff related, occasionally bilious in nature. Denies any actual fevers. She has had symptoms like this dating back as far as 2008. They are intermittent but when they come on they are generally quite severe and nothing specific seems to particularly make them better. She has had work-up including an EGD in June of last year that showed gastritis. She has had a prior barium swallow. She has had several CAT scans. She ended up having a cholecystectomy and more recently the hysterectomy to see if these would lead to any improvement in her overall symptomatology. She has never had a colonoscopy or gastric emptying study. This episode again has been going on since not too long after her hysterectomy. She was seen in the emergency room on January 20. CAT scan then did not show any abnormalities of concern. She has continued to have vomiting this week. Several times early in the week. She thought she was starting to get better midweek but then started vomiting again on . She has vomited fairly frequently since then and finally came into the emergency room. She does have some Zofran and Phenergan at home. She had previously been on hydrocodone and Ativan prior to her hysterectomy. She does not have any more hydrocodone elixir. She still has some Ativan. She does indicate that sometimes the Ativan helps more than other things. In talking with her she does smoke marijuana daily 3-4 joints a day. She has a marijuana card. She started smoking marijuana many years ago including multiple years prior to the onset of her episodes of intermittent abdominal pain and vomiting. She continued to have significant emesis and pain in the emergency room. She received several doses of antiemetics and pain medications in the emergency room. These included Zofran, Reglan, Ativan, morphine, Haldol, Dilaudid. Of note her blood pressures were quite elevated at the time that she was in significant pain 200s over 100s. Once her pain improved her blood pressures improved. She additionally received 10 mg of hydralazine once and some IV fluids. Given the severity of her symptoms in the emergency room she is being admitted for further management and evaluation as indicated. The pain in her abdomen is located across the upper quadrants and goes through to her back. It is severe and unrelenting in nature when it comes on. Review of Systems Const: Reports: body aches, change in appetite, fatigue, malaise and diaphoresis; Denies: fever(s), chills or change in weight Eyes: Denies: change in vision ENMT: Reports: throat pain (After vomiting); Denies: odynophagia, dry mouth or nasal congestion Card: Denies: chest pain, palpitations or edema Resp: Denies: dyspnea, productive cough or non-productive cough GI: Reports: abdominal pain, nausea, vomiting, heartburn and GI cramping; Denies: hematemesis, dysphagia, diarrhea or constipation : Reports: other (recent vaginal yeast infection cleared); Denies: difficulty voiding, urinary frequency, urinary incontinence or vaginal bleeding Musc: Reports: back pain and extremity pain; Denies: joint swelling, joint redness or joint warmth Skin/Breast: Reports: other (recent yeast infection under breasts cleared); Denies: rash or pruritus Neuro: Denies: headache(s), numbness in extremities, weakness in extremities or dizziness Psych: Reports: anxiety and depression Julien/Lymph: Denies: easy bruising or easy bleeding Medications/Allergies Home Medications Medication Instructions Recorded Confirmed Last Taken Type cetirizine 10 mg capsule 10 mg PO DAILY PRN 08/25/19 01/26/20 01/01/20 History lorazepam 0.5 mg tablet 0.5 mg PO BID PRN #60 tab 12/25/19 01/26/20 01/02/20 Rx ondansetron HCl 8 mg tablet 8 mg PO Q8H PRN 30 Days #90 tab 12/25/19 01/26/20 01/26/20 Rx amlodipine 10 mg PO DAILY 01/02/20 01/26/20 01/25/20 History promethazine 25 mg PO BEDTIME PRN 01/02/20 01/26/20 01/01/20 History metoclopramide HCl 10 mg tablet 10 mg PO Q6H PRN 01/15/20 01/26/20 Unknown History atenolol 25 mg PO DAILY 01/26/20 01/26/20 Unknown History docusate sodium 100 mg PO DAILY 01/26/20 01/26/20 Unknown History hydrocodone-acetaminophen 7.5 ml PO BID PRN 01/26/20 01/26/20 01/26/20 History ibuprofen 800 mg PO TID PRN 01/26/20 01/26/20 Unknown History lisinopril 20 mg PO DAILY 01/26/20 01/26/20 01/25/20 History pantoprazole 40 mg PO DAILY 01/26/20 01/26/20 Unknown History polyethylene glycol 3350 [Miralax] 17 g PO DAILY PRN 01/26/20 01/26/20 Unknown History Allergies Allergy/AdvReac Type Severity Reaction Status Date / Time No Known Allergies Allergy Verified 01/26/20 16:54 PFSH Acute PFSH: Medical History (Updated 01/27/20 @ 02:37 by Elena Michelle MD) GERD (gastroesophageal reflux disease) -on PPI History of anemia Hypertension Morbid obesity Nicotine dependence, cigarettes, with unspecified nicotine-induced disorders PTSD (post-traumatic stress disorder) Surgical History (Updated 01/27/20 @ 00:55 by Elena Michelle MD) History of hysterectomy (~01/03/20) with bilateral salpingectomy, Dr Yanes, done for menorrhagia and uterine fibroid S/P cholecystectomy (~2014) laparoscopic S/P dilatation and curettage (~1996) Tubal ligation status (~2009) Scope - falope ring Family History Grandmother Diabetes maternal great Lung cancer maternal Family/Other Diabetes maternal great uncle, cousin Mother Hypertension Stroke Other Cancer Social History (Updated 01/27/20 @ 00:51 by Elena Michelle MD) Smoking and tobacco status: current every day smoker cigarettes Packs smoked per day: 1 Alcohol intake: former Substance/Drug Use: current Substance/Drug use type: Marijuana Female Reproductive History: Date of last menstrual period: 12/31/19 : 3 Para: 1 Spontaneous abortions: No Vitals/I&O/Wt Last Vital Signs Temp 97.5 F L 01/26/20 21:12 Pulse 60 01/26/20 21:12 Resp 18 01/26/20 21:12 BP 116/73 01/26/20 21:12 Pulse Ox 97 01/26/20 21:12 01/26/20 01/26/20 01/27/20 14:59 22:59 06:59 Intake Total 1000 / 1000 Balance 1000 / 1000 Weight last 48 hrs Weight 104.326 kg Physical Exam Const: OTHER: Alert, oriented x3, cooperative HENMT: OTHER: Normocephalic atraumatic, dry mucus membranes Eye: OTHER: Pupils equally round and reactive to light Neck/C-Spine: OTHER: Supple, no thyromegaly or lymphadenopathy Resp: OTHER: Clear to auscultation bilaterally, no rales, rhonchi or wheezes noted, no accessory muscle use noted, no tachypnea Cardio: OTHER: Regular rate and rhythm, no murmurs gallops or rubs. Pulses equal throughout. GI: OTHER: Abdomen soft, mild epigastric/upper quandrant tenderness, nondistended with positive bowel sounds : OTHER: Deferred Extremity: NARRATIVE EXTREMITY EXAM: No cyanosis, clubbing or edema, no acute synovitis Neuro: OTHER: Face symmetric, speech clear, moves all extremities Psych: OTHER: Normal affect Skin: OTHER: Skin dry, no acute rashes noted Data : 01/27/20 03:15 01/27/20 03:15 Other Labs: Laboratory Tests 01/26/20 01/26/20 01/26/20 17:20 17:20 17:22 Lactic Acid Total Bilirubin 0.5 AST 19 ALT 19 Alkaline Phosphatase 57 Troponin T Baseline Albumin 4.5 Lipase 37 Urine Ketones 1+ H Urine Opiates Screen Positive H U Benzodiazepines Scrn Positive H U Marijuana (THC) Screen Positive H 01/26/20 01/26/20 17:22 20:18 Lactic Acid 1.1 Total Bilirubin AST ALT Alkaline Phosphatase Troponin T Baseline 6 Albumin Lipase Urine Ketones Urine Opiates Screen U Benzodiazepines Scrn U Marijuana (THC) Screen A&P Assessment and plan (1) Hyperemesis: Status: Acute (2) Abdominal pain: Status: Chronic Qualifiers: Abdominal location: epigastric Qualified Code(s): R10.13 - Epigastric pain (3) Leukocytosis: Status: Acute Qualifiers: Leukocytosis type: leukemoid reaction Qualified Code(s): D72.823 - Leukemoid reaction (4) Tetrahydrocannabinol (THC) dependence: Status: Chronic (5) Hypertension: Status: Chronic Qualifiers: Hypertension type: essential hypertension Qualified Code(s): I10 - Ess ential (primary) hypertension (6) Nicotine dependence, cigarettes, with unspecified nicotine-induced disorders: Status: Chronic (7) Morbid obesity: BMI currently 37 Status: Acute Additional A&P Information Patient has had issues with intermittent but recurrent episodes of hyperemesis associated with abdominal pain for years. She has had EGD, barium swallow, cholecystectomy and most recently a hysterectomy with the hope that her symptoms will improve. Unfortunately they have not. She has had gastritis identified on EGD previously. She does smoke cigarettes. In addition to this she smokes marijuana and has for many years long before the onset of her episodes of hyperemesis that began around 2008. She reports 3-4 joints a day most days. I think it is within the realm of possibility that she has cannabis associated hyperemesis/cyclical vomiting. This is likely exacerbated by reflux with contributing factors being chronic tobacco use and obesity. She is only on an H2 petar outpatient. She does have an elevated white count. It has been high on multiple occasions but most of the times that she presents she has recently had significant vomiting. Suspect reactive in nature. Differential showed 80% neutrophils. She had a CT of the abdomen and pelvis on January 20 that did not show any acute findings. Urinalysis is unremarkable. Chest x-ray was negative. No obvious foci of infection and at the time of my evaluation patient is not acutely ill appearing. She seemed to respond the most to pain medications ad ministered, but received quite a cocktail in the ER due to the severity of her symptoms at presentation. Blood pressures were initially high and she has noted that blood pressures are high when there is more pain. She does not have any more hydrocodone at home. Denies regular use of narcotics., but narcotic withdrawal could also present in a similar fashion. She has benzodiazepines at home which she takes for her symptoms and does get relief. [place] is another consideration with risk factors being hypertenison and tobacco use. This seems less likely to me at present. Currently leaning towards cannabis associated hyperemesis. Observation admission IV fluids tonight PPI [place] diet Replace electrolytes including potassium which is low Check magnesium secondary to hypokalemia Check TSH Check CRP and pro calcitonin, sed rate to have as a baseline for future and evaluate for acute inflammation Antiemetics to include Zofran and Phenergan I think it would be reasonable to try to start her on some amitriptyline at bedtime. This could help with both sleep, which she often smokes marijuana for and potentially help with the cyclical vomiting nature of what is going on. Discussed with patient hyperemesis associated with cannabis use. Also provided her with educational materials I was able to find from [facility]. Patient expressed a willingness to try to give up marijuana use to see if it would help her symptoms. We also talked about smoking cessation, avoiding ca ffeine, weight loss and other means to minimize contribution to gastroesophageal reflux disease. She does report that when she was a child it was recommended that she have what sounds like a Matthew fundoplication but it was never done. Discussed with her that without further definitive evidence of severe reflux as the cause of her symptoms, trial of additional medications and such and Matthew would not be the first choice of management. She knew that it made it where you could not vomit and was curious. We talked about the contribution of constipation to GI symptoms as well. Patient's mother was on the phone listening into the conversation, with the patient's permission. Both the patien t and her mother were given an opportunity to ask questions. I explained that we may not get an answer during this hospital stay, but would give her some IV fluids and monitor her for recurrent severe symptoms. She has been referred to Dr. Valladares for colonoscopy Could consider gastric emptying study/upper GI Would recommend seeing if we can get her over to PPI for at least a month of therapy if not indefinitely Continue usual antihypertensive agents Reviewed with patient that metoclopramide has 2 risk of tardive dyskinesia with long-term use and that it generally should not be mixed with Phenergan. She expressed understanding. I did explain its can be a good medicine and short courses of treatment at times though still carries risk. Low risk for VTE Anticipate discharge home Attestations Medical Necessity Statement*: Currently anticipated stay less than 2 midnights in this patient with a history of recurrent intermittent but significant episodes of intractable nausea and vomiting along with abdominal pain. While she is currently doing better, she initially had significant elevation in blood pressures and also has mild elevation white. Will improve with repeated. Coding Level of Care Code Acute Acid Washer Operator for g Fwd Diagnoses Hyperemesis R11.10 Abdominal pain R10.13 Abdominal location: epigastric Leukocytosis D72.823 Leukocytosis type: leukemoid reaction Tetrahydrocannabinol (THC) dependence F12.20 Hypertension I10 Hypertension type: essential hypertension Nicotine dependence, cigarettes, with unspecified nicotine-induced disorders F17.219 Morbid obesity E66.01
[2020-01-27] VITALS (8 sets, daily range): BP systolic 112–168; BP diastolic 72–99; PULSE 62–73; RESP 16–24; TEMP 36.6–36.9; O2SAT 96–98
[2020-01-27] MEDS: dextrose 5%-ns + KCl 20 20 MEQ/1,000 ML BAG 150 MEQ IV ×2 (02:59→08:34)
[2020-01-27] MEDS: lidocaine 1% INJ 20 mL 2.5 ML IV (02:59)
[2020-01-27] MEDS: pantoprazole 40 mg SDV IVP (02:59)
[2020-01-27] MEDS: promethazine 25 mg Tablet PO ×3 (03:04→15:23)
[2020-01-27 04:46] LABS: Basophils # 0.1 10^3/uL (0.0-0.1); Basophils % 0.6 %; Eosinophils # 0.4 10^3/uL (0.0-0.8); Eosinophils % 2.8 %; Hematocrit 44.2 % (37.0-47.0); Lymphocytes # 4.2 10^3/uL (0.8-4.8); Lymphocytes % 30.3 %; Mean Corpuscular HGB Conc 31.7 g/dL (30.0-36.0); Mean Corpuscular Volume 94.6 fL (81-99); Mean Platelet Volume 9.7 fL (7.4-10.4); Monocytes # 1.3 10^3/uL (0.2-0.9); Monocytes % 9.6 %; Neutrophils # 7.79 10^3/uL (1.8-7.7); Neutrophils % 56.4 %; Nucleated Red Blood Cells % 0 %; Platelet Count 373 10^3/cmm (130-400); Red Blood Count 4.67 10^6/uL (4.1-5.3); Red Cell Distribution Width 12.4 % (12.1-15.1); White Blood Count 13.8 10^3/uL (4.0-10.0)
[2020-01-27 05:18] LABS: Alanine Aminotransferase 19 U/L (0-33); Albumin Level 4.2 g/dL (3.5-5.2); Alkaline Phosphatase 56 IU/L (35-105); Aspartate Amino Transferase 19 U/L (0-32); Blood Urea Nitrogen 8 mg/dL (6-20); Calcium 9.4 mg/dL (8.5-10.5); Carbon Dioxide 24 mmol/L (22-29); Chloride 99 mmol/L (98-107); Globulin 3.5 g/dL (1.3-4.6); Glomerular Filtration Rate 90.9 mL/min (90-130); Glucose 97 mg/dL (65-115); Osmolality Calculated 276 mOsm/kg (285-295); Sodium 135 mmol/L (136-145); Total Bilirubin 0.4 mg/dL (0.15-1.2); Total Protein 7.7 g/dL (6.6-8.7)
[2020-01-27 05:32] LABS: Procalcitonin 0.03 ng/mL (0-0.5)
[2020-01-27 05:35] LABS: Anion Gap 15.1 (5-19); Potassium 3.1 mmol/L (3.5-5.1)
[2020-01-27 06:03] LABS: C Reactive Protein 2.2 mg/L (0.0-4.9); Magnesium 1.9 mg/dL (1.7-2.3); Thyroid Stimulating Hormone 3.39 uIU/mL (0.27-4.20)
[2020-01-27 06:29] LABS: Erythrocyte Sedimentation Rate 10 mm/hr (0-15)
[2020-01-27 07:53] LABS: Estmated Average Glucose 97
[2020-01-27 07:56] LABS: Cholesterol 191 mg/dL (0-200); HDL Cholesterol 23 mg/dL (60-100); LDL Cholesterol Calculated 120 mg/dL (50-129); LDL HDL Ratio 5.22 RATIO (0.00-3.22); Triglycerides 238 mg/dL (0-150)
[2020-01-27] MEDS: bisacodyl 5 mg Tablet 10 MG PO (08:32)
[2020-01-27] MEDS: acetaminophen 325 mg Tablet 650 MG PO (08:33)
[2020-01-27] MEDS: potassium chloride ER 10 mEq Tablet 20 MEQ PO (08:34)
[2020-01-27] MEDS: pantoprazole DR 40 mg Tablet PO (08:35)
[2020-01-27] MEDS: promethazine 25 mg/mL SDV 1 mL IM (09:16)
[2020-01-27] MEDS: morphine 4 mg/mL SDV 1 mL IVP ×2 (09:21→15:15)
--- NOTE | 2020-01-27 09:27 | PC.NURSE ---
Patient vomited about 50 mls of yellow bile with white pill substance in it. Patient feels she vomited both her Tylenol and her Phenergan back up and is requesting something else to be given. Patient states that the phenergan lasts longer. IM Phenergan given and IV morphine given. Patient resting in bed watching TV laying on her right side.
[2020-01-27] MEDS: ondansetron 2 mg/ML SDV 2 mL 4 MG IVP ×2 (11:38→15:15)
--- NOTE | 2020-01-27 14:47 | PC.NURSE ---
Shift note: Patient has multiple requests for anti-nausea meds and pain meds. She is asking for stronger pain medication, as she states the tylenol and morphine are not working and more anti-nausea meds. Emesis is noted to be clear with no particles noted. She gets angry, verbally stating that she would just go back to ER for pain control when told pain medications are scheduled and to early to receive. Physician Notified. JOHNY, RAJI
--- NOTE | 2020-01-27 15:13 | PC.NURSE ---
Per Dr. Woo give patient IV ZOFRAN AND MORPHINE AND WILL D/C PATIENT HOME. - REPORT GIVEN TO SERGIO POSTING CLERK NURSE. AYDEW, COMMERCIAL TELLER
--- NOTE | 2020-01-27 15:26 | PM.DCS ---
Discharge Providers Date of Admission: 01/26/20 20:10 Date of Discharge: January 27, 2020 Attending Provider at Admission: Elena Michelle MD Attending Provider at Discharge: Deepika Woo MD Primary Care Provider: Audra Amaya DO Diagnoses at Discharge Discharge Diagnosis (1) Hyperemesis: Status: Acute (2) Abdominal pain: Status: Chronic Qualifiers: Abdominal location: epigastric Qualified Code(s): R10.13 - Epigastric pain (3) Leukocytosis: Status: Acute Qualifiers: Leukocytosis type: leukemoid reaction Qualified Code(s): D72.823 - Leukemoid reaction (4) Tetrahydrocannabinol (THC) dependence: Status: Chronic Problem details: has a THC card, on for PTSD/insomnia, 3-4 joints per day most of time, used for many years (5) Hypertension: Status: Chronic Qualifiers: Hypertension type: essential hypertension Qualified Code(s): I10 - Essential (primary) hypertension (6) Nicotine dependence, cigarettes, with unspecified nicotine-induced disorders: Status: Chronic (7) Morbid obesity: Status: Acute Reason for Visit Reason for Visit: cp Hospital Course Discharge Summary: China Batres is a 44 year old female who presented to the emergency room with intractable nausea and vomiting. She has had multiple past visits to the hospital for the same complaint. Most recently she underwent uncomplicated hysteretcomy in mid December hoping this will improve her symptoms, but this did not make any difference. She is scheduled to see Dr. Valladares as an outpatient. She had a CT of the abdomen and pelvis on January 20 that did not show any acute findings. Urinalysis is unremarkable. Chest x-ray was negative. No obvious foci of infection. 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 This is likely exacerbated by reflux with contributing factors being chronic tobacco use and obesity. Denies regular use of narcotics., but narcotic withdrawal could also present in a similar fashion. Has been requesting narcotics at exact scheduled time. She is much improved today with symptomatic treatment and is being discharged home in stable condition. Encouraged to keep her follow up appointments. She has been referred to Dr. Valladares for colonoscopy. 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: no focal neuro deficits Discharge Data Data Completed and Pending: Completed Studies During Hospitalization Category Date Time Status XR chest 1V mellissa ble [id number] Stat Exams 01/26/20 16:13 Completed Pending at discharge Category Date Time Status Magnesium AM LABS Lab 01/28/20 04:00 Ordered Labs from last 24 hours 01/27/20 01/27/20 01/27/20 05:37 05:37 03:15 WBC RBC Hgb Hct MCV MCH MCHC RDW Plt Count MPV Neut % (Auto) Lymph % (Auto) [place] % (Auto) Eos % (Auto) Baso % (Auto) Neut # (Auto) Lymph # (Auto) [place] # (Auto) Eos # (Auto) Baso # (Auto) Nucleated RBC % (a uto) Nucleated RBCs # ESR 10 Sodium Potassium Chloride Carbon Dioxide Anion Gap BUN Creatinine GFR Calculation Glucose Estimat Average Gl ucose 97 Hemoglobin A1c 5.0 Calculated Osmolal ity Lactic Acid Calcium Magnesium Total Bilirubin AST ALT Alkaline Phosphata se Troponin T Baselin e Troponin T 120 Min [place] Troponin T C-Reactive Protein Total Protein Albumin Globulin Triglycerides 238 H Cholesterol 191 LDL Cholesterol, C alc 120 HDL Cholesterol 23 L LDL/HDL Ratio 5.22 H Cholesterol/HDL Ra stephen 8.30 H Lipase Procalcitonin TSH Urine Color Urine Appearance Urine pH Ur Specific Gravit y Urine Protein Urine Glucose (UA) Urine Ketones Urine Blood Urine Nitrate Urine Bilirubin Prot Sulfosalicyli c Acd Urine Urobilinogen Ur Leukocyte Brittany ase Urine Opiates Scre en Ur Barbiturates Sc reen Ur Phencyclidine S crn Ur Amphetamines Sc reen U Benzodiazepines Scrn Urine Cocaine Scre en U Marijuana (THC) Screen 01/27/20 01/27/20 01/27/20 03:15 03:15 03:15 WBC RBC Hgb Hct MCV MCH MCHC RDW Plt Count MPV Neut % (Auto) Lymph % (Auto) [place] % (Auto) Eos % (Auto) Baso % (Auto) Neut # (Auto) Lymph # (Auto) [place] # (Auto) Eos # (Auto) Baso # (Auto) Nucleated RBC % (a uto) Nucleated RBCs # ESR Sodium 135 L Potassium 3.1 L Chloride 99 Carbon Dioxide 24 Anion Gap 15.1 BUN 8 Creatinine 0.7 GFR Calculation 90.9 Glucose 97 Estimat Average Gl ucose Hemoglobin A1c Calculated Osmolal ity 276 L Lactic Acid Calcium 9.4 Magnesium 1.9 Total Bilirubin 0.4 AST 19 ALT 19 Alkaline Phosphata se 56 Troponin T Baselin e Troponin T 120 Min [place] Troponin T C-Reactive Protein 2.2 Total Protein 7.7 Albumin 4.2 Globulin 3.5 Triglycerides Cholesterol LDL Cholesterol, C alc HDL Cholesterol LDL/HDL Ratio Cholesterol/HDL Ra stephen Lipase Procalcitonin 0.03 TSH 3.39 Urine Color Urine Appearance Urine pH Ur Specific Gravit y Urine Protein Urine Glucose (UA) Urine Ketones Urine Blood Urine Nitrate Urine Bilirubin Prot Sulfosalicyli c Acd Urine Urobilinogen Ur Leukocyte Brittany ase Urine Opiates Scre en Ur Barbiturates Sc reen Ur Phencyclidine S crn Ur Amphetamines Sc reen U Benzodiazepines Scrn Urine Cocaine Scre en U Marijuana (THC) Screen 01/27/20 01/26/20 01/26/20 03:15 20:18 19:22 WBC 13.8 H RBC 4.67 Hgb 14.0 Hct 44.2 MCV 94.6 D MCH 30.0 MCHC 31.7 D RDW 12.4 Plt Count 373 MPV 9.7 Neut % (Auto) 56.4 Lymph % (Auto) 30.3 Webster % (Auto) 9.6 Eos % (Auto) 2.8 Baso % (Auto) 0.6 Neut # (Auto) 7.79 H Lymph # (Auto) 4.2 Webster # (Auto) 1.3 H Eos # (Auto) 0.4 Baso # (Auto) 0.1 Nucleated RBC % (a uto) 0 Nucleated RBCs # 0.0 ESR Sodium Potassium Chloride Carbon Dioxide Anion Gap BUN Creatinine GFR Calculation Glucose Estimat Average Gl ucose Hemoglobin A1c Calculated Osmolal ity Lactic Acid 1.1 Calcium Magnesium Total Bilirubin AST ALT Alkaline Phosphata se Troponin T Baselin e Troponin T 120 Min [place] 6.00 Delta Troponin T 0 C-Reactive Protein Total Protein Albumin Globulin Triglycerides Cholesterol LDL Cholesterol, C alc HDL Cholesterol LDL/HDL Ratio Cholesterol/HDL Ra stephen Lipase Procalcitonin TSH Urine Color Urine Appearance Urine pH Ur Specific Gravit y Urine Protein Urine Glucose (UA) Urine Ketones Urine Blood Urine Nitrate Urine Bilirubin Prot Sulfosalicyli c Acd Urine Urobilinogen Ur Leukocyte Brittany ase Urine Opiates Scre en Ur Barbiturates Sc reen Ur Phencyclidine S crn Ur Amphetamines Sc reen U Benzodiazepines Scrn Urine Cocaine Scre en U Marijuana (THC) Screen 01/26/20 01/26/20 01/26/20 17:22 17:22 17:20 WBC RBC Hgb Hct MCV MCH MCHC RDW Plt Count MPV Neut % (Auto) Lymph % (Auto) [place] % (Auto) Eos % (Auto) Baso % (Auto) Neut # (Auto) Lymph # (Auto) [place] # (Auto) Eos # (Auto) Baso # (Auto) Nucleated RBC % (a uto) Nucleated RBCs # ESR Sodium 136 Potassium 3.3 L Chloride 100 Carbon Dioxide 23 Anion Gap 16.3 BUN 10 Creatinine 0.7 GFR Calculation 90.9 Glucose 141 H Estimat Average Gl ucose Hemoglobin A1c Calculated Osmolal ity 280 L Lactic Acid Calcium 9.7 Magnesium Total Bilirubin 0.5 AST 19 ALT 19 Alkaline Phosphata se 57 Troponin T Baselin e 6 Troponin T 120 Min [place] Troponin T C-Reactive Protein Total Protein 7.5 Albumin 4.5 Globulin 3.0 Triglycerides Cholesterol LDL Cholesterol, C alc HDL Cholesterol LDL/HDL Ratio Cholesterol/HDL Ra stephen Lipase 37 Procalcitonin TSH Urine Color Urine Appearance Urine pH Ur Specific Gravit y Urine Protein Urine Glucose (UA) Urine Ketones Urine Blood Urine Nitrate Urine Bilirubin Prot Sulfosalicyli c Acd Urine Urobilinogen Ur Leukocyte Brittany ase Urine Opiates Scre en Positive H Ur Barbiturates Sc reen Negative Ur Phencyclidine S crn Negative Ur Amphetamines Sc reen Negative U Benzodiazepines Scrn Positive H Urine Cocaine Scre en Negative U Marijuana (THC) Screen Positive H 01/26/20 01/26/20 17:20 16:39 WBC 13.9 H RBC 5.19 Hgb 15.6 H Hct 45.7 MCV 88.1 MCH 30.1 MCHC 34.1 RDW 12.0 L Plt Count 443 H MPV 10.1 Neut % (Auto) 80.8 Lymph % (Auto) 14.7 Webster % (Auto) 3.6 Eos % (Auto) 0.2 Baso % (Auto) 0.4 Neut # (Auto) 11.23 H Lymph # (Auto) 2.1 Webster # (Auto) 0.5 Eos # (Auto) 0.0 Baso # (Auto) 0.1 Nucleated RBC % (a uto) 0 Nucleated RBCs # 0.0 ESR Sodium Potassium Chloride Carbon Dioxide Anion Gap BUN Creatinine GFR Calculation Glucose Estimat Average Gl ucose Hemoglobin A1c Calculated Osmolal ity Lactic Acid Calcium Magnesium Total Bilirubin AST ALT Alkaline Phosphata se Troponin T Baselin e Troponin T 120 Min [place] Troponin T C-Reactive Protein Total Protein Albumin Globulin Triglycerides Cholesterol LDL Cholesterol, C alc HDL Cholesterol LDL/HDL Ratio Cholesterol/HDL Ra stephen Lipase Procalcitonin TSH Urine Color Yellow Urine Appearance Clear Urine pH 9 H Ur Specific Gravit y 1.015 Urine Protein Neg Urine Glucose (UA) Norm Urine Ketones 1+ H Urine Blood Neg Urine Nitrate Negative Urine Bilirubin Neg Prot Sulfosalicyli c Acd Negative Urine Urobilinogen Norm Ur Leukocyte Brittany ase Negative Urine Opiates Scre en Ur Barbiturates Sc reen Ur Phencyclidine S crn Ur Amphetamines Sc reen U Benzodiazepines Scrn Urine Cocaine Scre en U Marijuana (THC) Screen Vitals: Last Vital Signs Temp 98.5 F 01/27/20 14:57 Pulse 71 01/27/20 14:57 Resp 20 H 01/27/20 15:15 BP 168/98 01/27/20 14:57 Pulse Ox 97 01/27/20 15:15 Discharge Plan Discharge Patient Disposition: Home, Self-Care Condition: Stable Prescriptions: Continued metoclopramide HCl [Reglan] 10 mg tablet 10 mg PO Q6H PRN (Reason: unknown) RF: 0 cetirizine 10 mg capsule 10 mg PO DAILY PRN (Reason: unknown) RF: 0 ondansetron HCl 8 mg tablet 8 mg PO Q8H PRN (Reason: Nausea) 30 Days Qty: 90 RF: 1 lorazepam [Ativan] 0.5 mg tablet 0.5 mg PO BID PRN (Reason: nausea and vomiting) Qty: 60 RF: 0 amlodipine 10 mg Tablet 10 mg PO DAILY RF: 0 Miralax 17 gram Powder In Packet 17 g PO DAILY PRN (Reason: Constipation) RF: 0 lisinopril 20 mg Tablet 20 mg PO DAILY RF: 0 atenolol 25 mg Tablet 25 mg PO DAILY RF: 0 pantoprazole 40 mg Tablet,Delayed Release (Dr/Ec) 40 mg PO DAILY RF: 0 docusate sodium 100 mg capsule 100 mg PO DAILY RF: 0 hydrocodone-acetaminophen 7.5-325 mg/15 mL solution 7.5 ml PO BID PRN (Reason: Pain) 5 Days Qty: 1 RF: 0 Changed promethazine 25 mg tablet 25 mg PO BID PRN (Reason: nausea) 7 Days Qty: 7 RF: 0 Discontinued ibuprofen 800 mg tablet 800 mg PO TID PRN (Reason: Pain) RF: 0 Discharge Orders: Discharge Order (Routine); Ordered 01/27/20 Ordered By: Deepika Woo Discharge Diet: Usual diet Discharge Activity: Resume usual activity Discharge Attestations Time Spent in Discharge Care*: less than 30 min Status at Discharge: Cognitive status at discharge: cognitively intact, Behavioral status at discharge: cooperative, Quality Metrics Clinical Quality Measures During this hospital stay, did patient experience: None Coding Level of Care Code Acute Roving Technician for Chg Fwd Diagnoses Hyperemesis R11.10 Abdominal pain R10.13 Abdominal location: epigastric Leukocytosis D72.823 Leukocytosis type: leukemoid reaction Tetrahydrocannabinol (THC) dependence F12.20 Hypertension I10 Hypertension type: essential hypertension Nicotine dependence, cigarettes, with unspecified nicotine-induced disorders F17.219 Morbid obesity E66.01
--- NOTE | 2020-01-29 14:17 | PC.SOCIAL ---
clarified Hydrocodone days prescribed and per DC information 5 days. Total of 75ml
== END 2020-01-27 16:15 | disposition home or self-care (01) ==
LOC: ER 18:46 → MEDSURG 20:42
PROVIDERS: Emergency Medicine; Admitting Provider Hospitalist; PCP Family Medicine; Visit Provider Student in an Organized Health Care Education/Training Program
DX: R11.10 Vomiting, unspecified (principal); R10.13 Epigastric pain; D72.823 Leukemoid reaction; F12.20 Cannabis dependence, uncomplicated; I10 Essential (primary) hypertension; F17.219 Nicotine dependence, cigarettes, with unspecified nicotine-induced disorders; E66.01 Morbid (severe) obesity due to excess calories; Z68.37 Body mass index [BMI] 37.0-37.9, adult
CPT/HCPCS: 12345; 36415; 71045; 80053; 80061; 80306; 81003; 83036; 83605; 83690; 83735; 84145; 84443; 84484; 85025; 85651; 86140; 93005; 96360; 96361; 96372; 96374; 96375; 99284; 99285; C9113; G0378; J0360; J1170; J1630; J2060; J2270; J2405; J2550; J2765; J3480; J7030; Q0169

== ENCOUNTER 2020-02-01 16:26 | Emergency (ER) | payer SELFPAY ==
[2020-02-01 16:29] VITALS: BP 187/80; PULSE 57; RESP 20; TEMP 37.2; O2SAT 99; BMI 37.9
--- NOTE | 2020-02-01 16:52 | CTR_ITS ---
PROCEDURE INFORMATION: Exam: CT Abdomen And Pelvis With Contrast Exam date and time: 02/01/2020 5:09 PM Age: 44 years old Clinical indication: Nausea and vomiting; Abdominal pain; Localized; Right; Prior surgery; Surgery type: Tubal, hysto, gb, d and c; Additional info: Abd pain TECHNIQUE: Imaging protocol: Computed tomography of the abdomen and pelvis with intravenous contrast. Radiation optimization: All CT scans at this facility use at least one of these dose optimization techniques: automated exposure control; mA and/or kV adjustment per patient size (includes targeted exams where dose is matched to clinical indication); or iterative reconstruction. Contrast material: OMNI 300; Contrast volume: 95 ml; Contrast route: INTRAVENOUS (IV); COMPARISON: CT abdomen pelvis w con* [id number] 01/21/2020 6:31 PM RADIATION DOSE METRICS: Total DLP (mGy-cm): 1560.61 FINDINGS: Lungs: Limited assessment lung bases without visible evidence of active cardiopulmonary process. Liver: Unremarkable. No mass. Gallbladder and bile ducts: Status post cholecystectomy. Pancreas: Normal. No ductal dilation. Spleen: Normal. No splenomegaly. Adrenals: Normal. No mass. Kidneys and ureters: Normal. No hydronephrosis. Stomach and bowel: Diverticulosis coli without visible evidence of acute diverticulitis. Appendix: The appendix is visualized and is noninflamed. Intraperitoneal space: No free fluid in the pelvis. No visible generalized ascites. Vasculature: Unremarkable. No abdominal aortic aneurysm. Lymph nodes: No visible generalized mesenteric or retroperitoneal lymphadenopathy. Bladder: Bladder decompressed. No gross filling defect. Reproductive: Status post hysterectomy. Within the right ovary is a dominant simple appearing ovarian physiologic cyst that measures 31 mm in maximum diameter. Follow-up is not necessary. Bones/joints: No visible active or acute osseous pathology. Soft tissues: Unremarkable. CT/CT abdomen pelvis w con* [id number] IMPRESSION: 1. Currently no visible evidence of acute abdominal or pelvic pathologic process. 2. The appendix is visualized and is noninflamed. 3. Simple appearing right ovarian physiologic cyst that measures 31 mm maximum diameter. Follow-up is not necessary. Radiation Dose CTDIVOL = (mGy): DLP = 1560.61 (mGy-cm)
[2020-02-01] MEDS: ziprasidone 20 mg/mL SDV 5 MG IM (17:06)
[2020-02-01] MEDS: sodium chloride 0.9% 1,000 ML 999 ML IV (17:06)
[2020-02-01 17:32] LABS: Basophils # 0.1 10^3/uL (0.0-0.1); Basophils % 0.7 %; Eosinophils # 0.1 10^3/uL (0.0-0.8); Eosinophils % 0.6 %; Hematocrit 44.7 % (37.0-47.0); Hemoglobin 14.9 g/dL (11.5-15.3); Lymphocytes # 2.4 10^3/uL (0.8-4.8); Lymphocytes % 17.3 %; Mean Corpuscular HGB Conc 33.3 g/dL (30.0-36.0); Mean Corpuscular Hemoglobin 30.3 pg (28.0-34.0); Mean Corpuscular Volume 90.9 fL (81-99); Mean Platelet Volume 9.3 fL (7.4-10.4); Monocytes # 1.2 10^3/uL (0.2-0.9); Monocytes % 8.6 %; Neutrophils # 9.81 10^3/uL (1.8-7.7); Neutrophils % 72.4 %; Nucleated Red Blood Cells % 0 %; Platelet Count 372 10^3/cmm (130-400); Red Blood Count 4.92 10^6/uL (4.1-5.3); Red Cell Distribution Width 12.1 % (12.1-15.1); White Blood Count 13.6 10^3/uL (4.0-10.0)
[2020-02-01 17:37] VITALS: BP 189/117; PULSE 58; RESP 18; O2SAT 95
--- NOTE | 2020-02-01 17:40 | W.ED.ABDPA2 ---
Documented by User: Giorgi Bedoya DO 02/01/20 17:42 HPI - Abdominal Pain General: Chief Complaint: Abdominal Pain Stated Complaint: ABDOMINAL PAIN Time Seen by Provider: 02/01/20 16:33 History of Present Illness: HPI narrative: Patient complains of continuing chronic abdominal pain. Patient has been seen multiple times without definitive diagnosis. Less than one week ago she was hospitalized at this facility for this complaint. MD elicited complaint: abdominal pain Pertinent past history: other (chronic ) Onset (ago): unknown Pain Consistency: constant Location: Diffuse and Epigastric Severity: similar to previous episodes Quality: stabbing, sharp and burning Radiation: none Migration to: no migration Exacerbating factors: eating and movement Relieving factors: nothing Related Data: Date of Last Menstrual Period: 12/31/19 Review of Systems General: Reports: 10 or more systems reviewed and unremarkable except in HPI and below PFSH ED PFSH: Medical History GERD (gastroesophageal reflux disease) -on PPI History of anemia Hypertension Morbid obesity Nicotine dependence, cigarettes, with unspecified nicotine-induced disorders PTSD (post-traumatic stress disorder) Surgical History History of hysterectomy (01/03/20) LAVH with bilateral salpingectomy. Dx: Uterine fibroids, Menorrhagia. Performed by Dr Lau at [facility] [place]. S/P cholecystectomy (~2014) laparoscopic S/P dilatation and curettage (~1996) Tubal ligation status (~2009) Scope - falope ring Family History Grandmother Diabetes maternal great Lung cancer maternal Family/Other Diabetes maternal great uncle, cousin Mother Hypertension Stroke Other Cancer Social History Smoking and tobacco status: current every day smoker cigarettes Packs smoked per day: 1 Alcohol intake: former Female Reproductive History: Date of last menstrual period: 12/31/19 Para: 1 Spontaneous abortions: No Physical Exam Const: COMMON NORMALS: patient oriented x3 and alert GENERAL APPEARANCE: in distress HENMT: COMMON NORMALS: normocephalic, atraumatic, external ears normal and Normal external nose present HEAD & SCALP: normocephalic and atraumatic FACE & SINUS: normal facial exam NOSE: Normal external nose present EXTERNAL EAR: Yes external ears normal MOUTH: Normal oral and palatal mucosa present Neck/C-Spine: COMMON NORMALS: full ROM, no lymphadenopathy, supple, no meningeal signs and no JVD GENERAL: Yes normal visual inspection Resp: COMMON NORMALS: normal respiratory effort, No retractions, No use of accessory muscles and clear to auscultation bilaterally AUSCULTATION: clear to auscultation bilaterally Cardio: COMMON NORMALS: no JVD, regular rate and regular rhythm RATE: regular rate RHYTHM: regular rhythm GI: COMMON NORMALS: Normal to inspection, nondistended, normoactive bowel sounds present, No hepatosplenomegaly present and no masses INSPECTION: Yes normal to inspection AUSCULTATION: Yes normoactive bowel sounds PALPATION: Yes Tenderness to palpation present (GI), Yes Guarding due to palpation present (GI) and Yes No hepatosplenomegaly present PERCUSSION: normal to percussion : COMMON NORMALS: Yes no CVA tenderness and Yes normal external appearance BLADDER/KIDNEY EXAM: Yes no CVA tenderness Back/Pelvis: COMMON NORMALS: no CVA tenderness, thoracic and lumbar spine normal to inspection, no thoracic nor lumbar tenderness, thoraco-lumbar ROM normal and straight leg raise negative bilaterally Extremity: COMMON NORMALS: normal to inspection, full ROM, capillary refill normal, no joint enlargement, no clubbing, cyanosis or edema, no calf tenderness and no pedal edema Neuro: COMMON NORMALS: patient oriented x3, moves all extremities, no focal motor deficits and no sensory deficits noted SENSORIUM/ORIENTATION: Yes alert MENINGEAL SIGNS: Yes no meningeal signs Psych: COMMON NORMALS: mental status grossly normal, Normal thought process present, cooperative, normal affect and speech normal SPEECH: Yes normal speech THOUGHT PROCESS: Normal thought process present Skin: COMMON NORMALS: no rashes or lesions noted, no wounds, turgor normal, no jaundice, no petechiae and no mottling GENERAL SKIN EXAM: no rashes or lesions noted and turgor normal Course Vital Signs: Vital signs: Vital Signs Temperature 98.9 F 02/01/20 16:29 Pulse Rate 78 02/01/20 20:55 Respiratory Rate 18 02/01/20 20:55 Blood Pressure 145/79 02/01/20 20:55 Pulse Oximetry 97 02/01/20 20:55 MDM - Abdominal Pain Lab Data: Labs: Lab Results 02/01/20 02/01/20 02/01/20 Range/Units 17:20 17:20 17:20 WBC 13.6 H (4.0-10.0) 10^3/ uL RBC 4.92 (4.1-5.3) 10^6/u L Hgb 14.9 (11.5-15.3) g/dL Hct 44.7 (37.0-47.0) % MCV 90.9 (81-99) fL MCH 30.3 (28.0-34.0) pg MCHC 33.3 (30.0-36.0) g/dL RDW 12.1 (12.1-15.1) % Plt Count 372 (130-400) 10^3/c mm MPV 9.3 (7.4-10.4) fL Neut % (Auto) 72.4 % Lymph % (Auto) 17.3 % Dickinson % (Auto) 8.6 % Eos % (Auto) 0.6 % Baso % (Auto) 0.7 % Neut # (Auto) 9.81 H (1.8-7.7) 10^3/u L Lymph # (Auto) 2.4 (0.8-4.8) 10^3/u L Dickinson # (Auto) 1.2 H (0.2-0.9) 10^3/u L Eos # (Auto) 0.1 (0.0-0.8) 10^3/u L Baso # (Auto) 0.1 (0.0-0.1) 10^3/u L Nucleated RBC % (a uto) 0 % Nucleated RBCs # 0.0 /100WBC Sodium 138 (136-145) mmol/L Potassium 2.9 L (3.5-5.1) mmol/L Chloride 99 (98-107) mmol/L Carbon Dioxide 27 (22-29) mmol/L Anion Gap 14.9 (5-19) BUN 11 (6-20) mg/dL Creatinine 0.8 (0.5-0.9) mg/dL GFR Calculation 77.9 L (90-130) mL/min Glucose 119 H (65-115) mg/dL Calculated Osmolal ity 283 L (285-295) mOsm/k g Lactate 1.3 (0.5-2.2) mmol/L Calcium 8.7 (8.5-10.5) mg/dL Magnesium (1.7-2.3) mg/dL Total Bilirubin 0.5 (0.15-1.2) mg/dL AST 22 (0-32) U/L ALT 24 (0-33) U/L Alkaline Phosphata se 53 (35-105) IU/L Total Protein 7.3 (6.6-8.7) g/dL Albumin 4.5 (3.5-5.2) g/dL Globulin 2.8 (1.3-4.6) g/dL Lipase 33 (13-60) U/L Urine Color (Yellow) Urine Appearance (CLEAR) Urine pH (5-7) Ur Specific Gravit y (1.005-1.030) Urine Protein (Negative) Urine Glucose (UA) (Normal) Urine Ketones (Negative) Urine Blood (Negative) Urine Nitrate (Negative) Urine Bilirubin (NEGATIVE) Prot Sulfosalicyli c Acd (Negative) Urine Urobilinogen (Negative) mg/dL Ur Leukocyte Brittany ase (Negative) Urine RBC (0-2) /hpf Urine WBC (0-5) /hpf Ur Squamous Epith Cells (0-5) Amorphous Sediment Urine Bacteria (NONE) Urine Opiates Scre en (Negative) ng/mL Ur Barbiturates Sc reen (Negative) ng/mL Ur Phencyclidine S crn (Negative) ng/mL Ur Amphetamines Sc reen (Negative) ng/mL U Benzodiazepines Scrn (Negative) ng/mL Urine Cocaine Scre en (Negative) ng/mL U Marijuana (THC) Screen (Negative) ng/mL 02/01/20 02/01/20 02/01/20 Range/Units 17:20 18:09 18:09 WBC (4.0-10.0) 10^3/ uL RBC (4.1-5.3) 10^6/u L Hgb (11.5-15.3) g/dL Hct (37.0-47.0) % MCV (81-99) fL MCH (28.0-34.0) pg MCHC (30.0-36.0) g/dL RDW (12.1-15.1) % Plt Count (130-400) 10^3/c mm MPV (7.4-10.4) fL Neut % (Auto) % Lymph % (Auto) % Dickinson % (Auto) % Eos % (Auto) % Baso % (Auto) % Neut # (Auto) (1.8-7.7) 10^3/u L Lymph # (Auto) (0.8-4.8) 10^3/u L Dickinson # (Auto) (0.2-0.9) 10^3/u L Eos # (Auto) (0.0-0.8) 10^3/u L Baso # (Auto) (0.0-0.1) 10^3/u L Nucleated RBC % (a uto) % Nucleated RBCs # /100WBC Sodium (136-145) mmol/L Potassium (3.5-5.1) mmol/L Chloride (98-107) mmol/L Carbon Dioxide (22-29) mmol/L Anion Gap (5-19) BUN (6-20) mg/dL Creatinine (0.5-0.9) mg/dL GFR Calculation (90-130) mL/min Glucose (65-115) mg/dL Calculated Osmolal ity (285-295) mOsm/k g Lactate (0.5-2.2) mmol/L Calcium (8.5-10.5) mg/dL Magnesium 1.8 (1.7-2.3) mg/dL Total Bilirubin (0.15-1.2) mg/dL AST (0-32) U/L ALT (0-33) U/L Alkaline Phosphata se (35-105) IU/L Total Protein (6.6-8.7) g/dL Albumin (3.5-5.2) g/dL Globulin (1.3-4.6) g/dL Lipase (13-60) U/L Urine Color Yellow (Yellow) Urine Appearance Cloudy (CLEAR) Urine pH 9 H (5-7) Ur Specific Gravit y 1.015 (1.005-1.030) Urine Protein Neg (Negative) Urine Glucose (UA) Norm (Normal) Urine Ketones 1+ H (Negative) Urine Blood Neg (Negative) Urine Nitrate Negative (Negative) Urine Bilirubin Neg (NEGATIVE) Prot Sulfosalicyli c Acd Negative (Negative) Urine Urobilinogen Norm (Negative) mg/dL Ur Leukocyte Brittany ase Negative (Negative) Urine RBC 0-4 H (0-2) /hpf Urine WBC None (0-5) /hpf Ur Squamous Epith Cells 5-10 H (0-5) Amorphous Sediment 3+ Urine Bacteria Trace (NONE) Urine Opiates Scre en Positive H (Negative) ng/mL Ur Barbiturates Sc reen Negative (Negative) ng/mL Ur Phencyclidine S crn Negative (Negative) ng/mL Ur Amphetamines Sc reen Negative (Negative) ng/mL U Benzodiazepines Scrn Negative (Negative) ng/mL Urine Cocaine Scre en Negative (Negative) ng/mL U Marijuana (THC) Screen Positive H (Negative) ng/mL Discharge Plan Discharge Patient Disposition: Home, Self-Care Clinical Impression: Nausea & vomiting Qualifiers: Vomiting type: unspecified Vomiting Intractability: non-intractable Qualified Code(s): R11.2 - Nausea with vomiting, unspecified Abdominal pain Qualifiers: Abdominal location: generalized Qualified Code(s): R10.84 - Generalized abdominal pain Condition: Stable Prescriptions: New Zofran 4 mg tablet 4 mg PO Q8H PRN (Reason: nausea and vomiting) 5 Days RF: 0 promethazine 25 mg suppository 25 mg GA Q6H PRN (Reason: nausea and vomiting) Qty: 12 RF: 0 No Action metoclopramide HCl [Reglan] 10 mg tablet 10 mg PO Q6H PRN (Reason: unknown) RF: 0 cetirizine 10 mg capsule 10 mg PO DAILY PRN (Reason: unknown) RF: 0 ondansetron HCl 8 mg tablet 8 mg PO Q8H PRN (Reason: Nausea) 30 Days Qty: 90 RF: 1 lorazepam [Ativan] 0.5 mg tablet 0.5 mg PO BID PRN (Reason: nausea and vomiting) Qty: 60 RF: 0 amlodipine 10 mg Tablet 10 mg PO DAILY RF: 0 lisinopril 20 mg Tablet 20 mg PO DAILY RF: 0 pantoprazole 40 mg Tablet,Delayed Release (Dr/Ec) 40 mg PO DAILY RF: 0 docusate sodium 100 mg capsule 100 mg PO DAILY RF: 0 promethazine 25 mg tablet 25 mg PO BID PRN (Reason: nausea) 7 Days Qty: 7 RF: 0 hydrocodone-acetaminophen 7.5-325 mg/15 mL solution 7.5 ml PO BID PRN (Reason: Pain) 5 Days Qty: 1 RF: 0 Discharge Orders: Discharge Order (Routine); Ordered 02/01/20 Ordered By: Malka Arguello Referrals: Audra Amaya DO [Primary Care Provider] - 1-3 days Discharge Diet: Advance as tolerated and Clear Liquid Discharge Activity: Increase activity as tolerated Patient Instructions: Abdominal Pain (ED) Activity Restrictions/Additional Instructions: Please return to the ER immediately for any of the signs or symptoms listed on your discharge instruction sheets, worsening/changing of your symptoms, you are not getting better as quickly as expected, or for ANY other cause or concerns. Avoid any marijuana whatsoever as this may be contributing to your vomiting. Take the Zofran oral dissolving tablets and the Phenergan suppositories and replacement of your other nausea medicines, do not take both together. Be certain to follow-up with your doctor as soon as possible for recheck and further evaluation and care. Stand Alone Forms: Work/School Release Discharge Date/Time: 02/01/20 21:03 Sign Out Sign Out Data: Patient Sign Out occurred on 02/01/20 at 18:14. Patient's care was discussed, and care was transferred from to Malka Arguello. Coding Level of Care Code ED Actor Understudy for Chg Fwd Exam Comprehensive Documented by User: Malka Arguello 02/01/20 21:44 HPI - Abdominal Pain General: Chief Complaint: Abdominal Pain Stated Complaint: ABDOMINAL PAIN Time Seen by Provider: 02/01/20 16:33 PFSH ED PFSH: Medical History GERD (gastroesophageal reflux disease) -on PPI History of anemia Hypertension Morbid obesity Nicotine dependence, cigarettes, with unspecified nicotine-induced disorders PTSD (post-traumatic stress disorder) Surgical History History of hysterectomy (01/03/20) LAVH with bilateral salpingectomy. Dx: Uterine fibroids, Menorrhagia. Performed by Dr Lau at [facility] [place]. S/P cholecystectomy (~2014) laparoscopic S/P dilatation and curettage (~1996) Tubal ligation status (~2009) Scope - falope ring Family History Grandmother Diabetes maternal great Lung cancer maternal Family/Other Diabetes maternal great uncle, cousin Mother Hypertension Stroke Other Cancer Social History Smoking and tobacco status: current every day smoker cigarettes Packs smoked per day: 1 Alcohol intake: former Course Vital Signs: Vital signs: Vital Signs Temperature 98.9 F 02/01/20 16:29 Pulse Rate 78 02/01/20 20:55 Respiratory Rate 18 02/01/20 20:55 Blood Pressure 145/79 02/01/20 20:55 Pulse Oximetry 97 02/01/20 20:55 MDM - Abdominal Pain MDM Narrative: Medical decision making narrative: 1800 -Case turned over to me by Dr. Ring at change of shift. Please see his note for his history, physical exam and medical decision-making notes. Patient endorsed to me is likely cyclic vomiting syndrome but CT was pending and wants to be certain there was no evidence of acute surgical pathology. 185 -patient is feeling much better at this time. She has not vomited since she has been here and received IV medications. Her potassium is slightly low but we will replace IV and p.o. Magnesium is normal. On repeat exam her abdomen is nonsurgical. There is no tenderness to palpation, no rebound, no guarding or rigidity. The patient is requesting something for vomiting at home that she cannot threw up so I will prescribe Phenergan suppositories as well as dissolvable Zofran. Patient understands she can return here if her symptoms change or worsen but at this time she is feeling better and is ready to go home. Lab Data: Attestation: I reviewed the patient's lab results. Labs: Lab Results 02/01/20 02/01/20 02/01/20 Range/Units 17:20 17:20 17:20 WBC 13.6 H (4.0-10.0) 10^3/ uL RBC 4.92 (4.1-5.3) 10^6/u L Hgb 14.9 (11.5-15.3) g/dL Hct 44.7 (37.0-47.0) % MCV 90.9 (81-99) fL MCH 30.3 (28.0-34.0) pg MCHC 33.3 (30.0-36.0) g/dL RDW 12.1 (12.1-15.1) % Plt Count 372 (130-400) 10^3/c mm MPV 9.3 (7.4-10.4) fL Neut % (Auto) 72.4 % Lymph % (Auto) 17.3 % Dickinson % (Auto) 8.6 % Eos % (Auto) 0.6 % Baso % (Auto) 0.7 % Neut # (Auto) 9.81 H (1.8-7.7) 10^3/u L Lymph # (Auto) 2.4 (0.8-4.8) 10^3/u L Dickinson # (Auto) 1.2 H (0.2-0.9) 10^3/u L Eos # (Auto) 0.1 (0.0-0.8) 10^3/u L Baso # (Auto) 0.1 (0.0-0.1) 10^3/u L Nucleated RBC % (a uto) 0 % Nucleated RBCs # 0.0 /100WBC Sodium 138 (136-145) mmol/L Potassium 2.9 L (3.5-5.1) mmol/L Chloride 99 (98-107) mmol/L Carbon Dioxide 27 (22-29) mmol/L Anion Gap 14.9 (5-19) BUN 11 (6-20) mg/dL Creatinine 0.8 (0.5-0.9) mg/dL GFR Calculation 77.9 L (90-130) mL/min Glucose 119 H (65-115) mg/dL Calculated Osmolal ity 283 L (285-295) mOsm/k g Lactate 1.3 (0.5-2.2) mmol/L Calcium 8.7 (8.5-10.5) mg/dL Magnesium (1.7-2.3) mg/dL Total Bilirubin 0.5 (0.15-1.2) mg/dL AST 22 (0-32) U/L ALT 24 (0-33) U/L Alkaline Phosphata se 53 (35-105) IU/L Total Protein 7.3 (6.6-8.7) g/dL Albumin 4.5 (3.5-5.2) g/dL Globulin 2.8 (1.3-4.6) g/dL Lipase 33 (13-60) U/L Urine Color (Yellow) Urine Appearance (CLEAR) Urine pH (5-7) Ur Specific Gravit y (1.005-1.030) Urine Protein (Negative) Urine Glucose (UA) (Normal) Urine Ketones (Negative) Urine Blood (Negative) Urine Nitrate (Negative) Urine Bilirubin (NEGATIVE) Prot Sulfosalicyli c Acd (Negative) Urine Urobilinogen (Negative) mg/dL Ur Leukocyte Brittany ase (Negative) Urine RBC (0-2) /hpf Urine WBC (0-5) /hpf Ur Squamous Epith Cells (0-5) Amorphous Sediment Urine Bacteria (NONE) Urine Opiates Scre en (Negative) ng/mL Ur Barbiturates Sc reen (Negative) ng/mL Ur Phencyclidine S crn (Negative) ng/mL Ur Amphetamines Sc reen (Negative) ng/mL U Benzodiazepines Scrn (Negative) ng/mL Urine Cocaine Scre en (Negative) ng/mL U Marijuana (THC) Screen (Negative) ng/mL 02/01/20 02/01/20 02/01/20 Range/Units 17:20 18:09 18:09 WBC (4.0-10.0) 10^3/ uL RBC (4.1-5.3) 10^6/u L Hgb (11.5-15.3) g/dL Hct (37.0-47.0) % MCV (81-99) fL MCH (28.0-34.0) pg MCHC (30.0-36.0) g/dL RDW (12.1-15.1) % Plt Count (130-400) 10^3/c mm MPV (7.4-10.4) fL Neut % (Auto) % Lymph % (Auto) % Dickinson % (Auto) % Eos % (Auto) % Baso % (Auto) % Neut # (Auto) (1.8-7.7) 10^3/u L Lymph # (Auto) (0.8-4.8) 10^3/u L Dickinson # (Auto) (0.2-0.9) 10^3/u L Eos # (Auto) (0.0-0.8) 10^3/u L Baso # (Auto) (0.0-0.1) 10^3/u L Nucleated RBC % (a uto) % Nucleated RBCs # /100WBC Sodium (136-145) mmol/L Potassium (3.5-5.1) mmol/L Chloride (98-107) mmol/L Carbon Dioxide (22-29) mmol/L Anion Gap (5-19) BUN (6-20) mg/dL Creatinine (0.5-0.9) mg/dL GFR Calculation (90-130) mL/min Glucose (65-115) mg/dL Calculated Osmolal ity (285-295) mOsm/k g Lactate (0.5-2.2) mmol/L Calcium (8.5-10.5) mg/dL Magnesium 1.8 (1.7-2.3) mg/dL Total Bilirubin (0.15-1.2) mg/dL AST (0-32) U/L ALT (0-33) U/L Alkaline Phosphata se (35-105) IU/L Total Protein (6.6-8.7) g/dL Albumin (3.5-5.2) g/dL Globulin (1.3-4.6) g/dL Lipase (13-60) U/L Urine Color Yellow (Yellow) Urine Appearance Cloudy (CLEAR) Urine pH 9 H (5-7) Ur Specific Gravit y 1.015 (1.005-1.030) Urine Protein Neg (Negative) Urine Glucose (UA) Norm (Normal) Urine Ketones 1+ H (Negative) Urine Blood Neg (Negative) Urine Nitrate Negative (Negative) Urine Bilirubin Neg (NEGATIVE) Prot Sulfosalicyli c Acd Negative (Negative) Urine Urobilinogen Norm (Negative) mg/dL Ur Leukocyte Brittany ase Negative (Negative) Urine RBC 0-4 H (0-2) /hpf Urine WBC None (0-5) /hpf Ur Squamous Epith Cells 5-10 H (0-5) Amorphous Sediment 3+ Urine Bacteria Trace (NONE) Urine Opiates Scre en Positive H (Negative) ng/mL Ur Barbiturates Sc reen Negative (Negative) ng/mL Ur Phencyclidine S crn Negative (Negative) ng/mL Ur Amphetamines Sc reen Negative (Negative) ng/mL U Benzodiazepines Scrn Negative (Negative) ng/mL Urine Cocaine Scre en Negative (Negative) ng/mL U Marijuana (THC) Screen Positive H (Negative) ng/mL Imaging Data ^: CT Abd/Pel: Radiologist's impression: [address] [address] [address] Scan Report Signed Patient: China Batres Unit #: [id number] : 1975 Age/Sex: 44 / F ADM Date: 02/01/20 Loc: ER Room/Bed: Attending Dr: Ordering Provider/Ordering MD: Giorgi Bedoya DO Date of Service: 02/01/20 Procedure(s): CT abdomen pelvis w con* [id number] Accession Number(s): [id number] Report Number: [id number] PROCEDURE INFORMATION: Exam: CT Abdomen And Pelvis With Contrast Exam date and time: 02/01/2020 5:09 PM Age: 44 years old Clinical indication: Nausea and vomiting; Abdominal pain; Localized; Right; Prior surgery; Surgery type: Tubal, hysto, gb, d and c; Additional info: Abd pain TECHNIQUE: Imaging protocol: Computed tomography of the abdomen and pelvis with intravenous contrast. Radiation optimization: All CT scans at this facility use at least one of these dose optimization techniques: automated exposure control; mA and/or kV adjustment per patient size (includes targeted exams where dose is matched to clinical indication); or iterative reconstruction. Contrast material: OMNI 300; Contrast volume: 95 ml; Contrast route: INTRAVENOUS (IV); COMPARISON: CT abdomen pelvis w con* [id number] 01/21/2020 6:31 PM RADIATION DOSE METRICS: Total DLP (mGy-cm): 1560.61 FINDINGS: Lungs: Limited assessment lung bases without visible evidence of active cardiopulmonary process. Liver: Unremarkable. No mass. Gallbladder and bile ducts: Status post cholecystectomy. Pancreas: Normal. No ductal dilation. Spleen: Normal. No splenomegaly. Adrenals: Normal. No mass. Kidneys and ureters: Normal. No hydronephrosis. Stomach and bowel: Diverticulosis coli without visible evidence of acute diverticulitis. Appendix: The appendix is visualized and is noninflamed. Intraperitoneal space: No free fluid in the pelvis. No visible generalized ascites. Vasculature: Unremarkable. No abdominal aortic aneurysm. Lymph nodes: No visible generalized mesenteric or retroperitoneal lymphadenopathy. Bladder: Bladder decompressed. No gross filling defect. Reproductive: Status post hysterectomy. Within the right ovary is a dominant simple appearing ovarian physiologic cyst that measures 31 mm in maximum diameter. Follow-up is not necessary. Bones/joints: No visible active or acute osseous pathology. Soft tissues: Unremarkable. CT/CT abdomen pelvis w con* [id number] IMPRESSION: 1. Currently no visible evidence of acute abdominal or pelvic pathologic process. 2. The appendix is visualized and is noninflamed. 3. Simple appearing right ovarian physiologic cyst that measures 31 mm maximum diameter. Follow-up is not necessary. Radiation Dose CTDIVOL = (mGy): DLP = 1560.61 (mGy-cm) Dictated By: Chino Tim Signed By: Chino Tim Signed Date/Time: 02/01/201835 DD/ 33 EKG Data ^: EKG 1: Attestation: I personally reviewed and interpreted this EKG as follows: EKG interpretation date: 02/01/20 EKG interpretation time: 19:53 Interpretation: Normal sinus rhythm at 62 beats a minute, normal QT. Discharge Plan Discharge Patient Disposition: Home, Self-Care Clinical Impression: Nausea & vomiting Qualifiers: Vomiting type: unspecified Vomiting Intractability: non-intractable Qualified Code(s): R11.2 - Nausea with vomiting, unspecified Abdominal pain Qualifiers: Abdominal location: generalized Qualified Code(s): R10.84 - Generalized abdominal pain Condition: Stable Prescriptions: New Zofran 4 mg tablet 4 mg PO Q8H PRN (Reason: nausea and vomiting) 5 Days RF: 0 promethazine 25 mg suppository 25 mg GA Q6H PRN (Reason: nausea and vomiting) Qty: 12 RF: 0 No Action metoclopramide HCl [Reglan] 10 mg tablet 10 mg PO Q6H PRN (Reason: unknown) RF: 0 cetirizine 10 mg capsule 10 mg PO DAILY PRN (Reason: unknown) RF: 0 ondansetron HCl 8 mg tablet 8 mg PO Q8H PRN (Reason: Nausea) 30 Days Qty: 90 RF: 1 lorazepam [Ativan] 0.5 mg tablet 0.5 mg PO BID PRN (Reason: nausea and vomiting) Qty: 60 RF: 0 amlodipine 10 mg Tablet 10 mg PO DAILY RF: 0 lisinopril 20 mg Tablet 20 mg PO DAILY RF: 0 pantoprazole 40 mg Tablet,Delayed Release (Dr/Ec) 40 mg PO DAILY RF: 0 docusate sodium 100 mg capsule 100 mg PO DAILY RF: 0 promethazine 25 mg tablet 25 mg PO BID PRN (Reason: nausea) 7 Days Qty: 7 RF: 0 hydrocodone-acetaminophen 7.5-325 mg/15 mL solution 7.5 ml PO BID PRN (Reason: Pain) 5 Days Qty: 1 RF: 0 Discharge Orders: Discharge Order (Routine); Ordered 02/01/20 Ordered By: Malka Arguello Referrals: Audra Amaya DO [Primary Care Provider] - 1-3 days Discharge Diet: Advance as tolerated and Clear Liquid Discharge Activity: Increase activity as tolerated Patient Instructions: Abdominal Pain (ED) Activity Restrictions/Additional Instructions: Please return to the ER immediately for any of the signs or symptoms listed on your discharge instruction sheets, worsening/changing of your symptoms, you are not getting better as quickly as expected, or for ANY other cause or concerns. Avoid any marijuana whatsoever as this may be contributing to your vomiting. Take the Zofran oral dissolving tablets and the Phenergan suppositories and replacement of your other nausea medicines, do not take both together. Be certain to follow-up with your doctor as soon as possible for recheck and further evaluation and care. Stand Alone Forms: Work/School Release Discharge Date/Time: 02/01/20 21:03 Sign Out Sign Out Data: Patient Sign Out occurred on 02/01/20 at 18:14. Patient's care was discussed, and care was transferred from to Malka Arguello. Coding Level of Care Code ED Actor Understudy for Cholo Fweugene Exam Comprehensive
[2020-02-01 17:48] LABS: Lactate (Lactic Acid level) 1.3 mmol/L (0.5-2.2)
[2020-02-01 17:49] LABS: Alanine Aminotransferase 24 U/L (0-33); Albumin Level 4.5 g/dL (3.5-5.2); Alkaline Phosphatase 53 IU/L (35-105); Aspartate Amino Transferase 22 U/L (0-32); Blood Urea Nitrogen 11 mg/dL (6-20); Calcium 8.7 mg/dL (8.5-10.5); Carbon Dioxide 27 mmol/L (22-29); Chloride 99 mmol/L (98-107); Globulin 2.8 g/dL (1.3-4.6); Glomerular Filtration Rate 77.9 mL/min (90-130); Glucose 119 mg/dL (65-115); Lipase 33 U/L (13-60); Osmolality Calculated 283 mOsm/kg (285-295); Sodium 138 mmol/L (136-145); Total Bilirubin 0.5 mg/dL (0.15-1.2); Total Protein 7.3 g/dL (6.6-8.7)
[2020-02-01 18:01] LABS: Anion Gap 14.9 (5-19)
[2020-02-01 18:03] LABS: Potassium 2.9 mmol/L (3.5-5.1)
[2020-02-01] MEDS: iohexol 300 mg/mL 100 mL Btl IV (18:13)
[2020-02-01 18:30] LABS: Amphetamines Screen Urine Negative (Negative); Barbiturates Screen Urine Negative (Negative); Benzodiazepines Screen Urine Negative (Negative); Cocaine Screen Urine Negative (Negative); Opiate Screen Urine Positive (Negative); PCP Screen Urine Negative (Negative); THC Screen Urine Positive (Negative)
[2020-02-01 18:43] LABS: Urine Color Yellow (Yellow); pH Urine 9 (5-7)
[2020-02-01 18:44] LABS: Add Urine Microscopic? YES; Bilirubin Urine Neg (NEGATIVE); Blood Urine Neg (Negative); Glucose Urine UA Norm (Normal); Ketones Urine 1+ (Negative); Leukocyte Esterase Urine Negative (Negative); Nitrate Urine Negative (Negative); Protein Urine Neg (Negative); Specific Gravity, Urine 1.015 (1.005-1.030); Sulfosalicylic Acid Urine Negative (Negative); Urine Appearance Cloudy (CLEAR); Urobilinogen Urine Norm (Negative)
[2020-02-01 18:45] LABS: Add Urine Culture? No; Amorphous Sediment Urine 3+; Bacteria Urine TRACE; RBC Urine 0-4 /hpf (0-2)
[2020-02-01 18:51] LABS: Magnesium 1.8 mg/dL (1.7-2.3)
[2020-02-01 19:12] VITALS: BP 194/110; PULSE 68; RESP 16; O2SAT 97
--- NOTE | 2020-02-01 19:37 | ECG_ITS ---
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 Measurements Intervals [place] Rate: 62 P: 50 ME: 143 QRS: 56 QRSD: 117 T: 47 QT: 446 QTc: 456 Interpretive Statements SINUS RHYTHM INCOMPLETE RIGHT BUNDLE BRANCH BLOCK [90+ ms QRS DURATION, TERMINAL R IN V1/V2, 40+ ms S IN I/aVL/V4/V5/V6] Compared to ECG 01/26/2020 22:30:42 Incomplete right bundle-branch block now present Sinus bradycardia no longer present Prolonged QT interval no longer present Electronically Signed On 02-02-2020 1:22:53 CDT by Boris Perez M.D. [email or web address]
[2020-02-01 19:47] VITALS: BP 150/103; PULSE 62; RESP 17; O2SAT 100
[2020-02-01] MEDS: haloperidol inj 5 mg/mL INJ 1 mL IM (19:53)
--- NOTE | 2020-02-01 20:00 | PC.NURSE ---
PRIOR TO INITIATION OF POTASSIUM CM APPLIED PT IS IN A SINUS BRADYCARDIA RHYTHM
[2020-02-01 20:55] VITALS: BP 145/79; PULSE 78; RESP 18; O2SAT 97
== END 2020-02-01 21:03 | disposition home or self-care (01) ==
PROVIDERS: Family Medicine; Emergency Provider Emergency Medicine; PCP Family Medicine
DX: R10.84 Generalized abdominal pain (principal); R11.2 Nausea with vomiting, unspecified; I10 Essential (primary) hypertension; F17.210 Nicotine dependence, cigarettes, uncomplicated
CPT/HCPCS: 12345; 74177; 80053; 80306; 81001; 81003; 83605; 83690; 83735; 85025; 93005; 96365; 96366; 96372; 96375; 99283; 99284; J0131; J1630; J3480; J3486; J7030; Q9967

== ENCOUNTER → 2020-02-05 10:35 | Outpatient (BNVA) | payer SELFPAY | PROVIDERS: PCP Family Medicine; Visit Provider Family Medicine | DX: E87.6 Hypokalemia (principal); R60.0 Localized edema; R11.10 Vomiting, unspecified; I10 Essential (primary) hypertension; F17.219 Nicotine dependence, cigarettes, with unspecified nicotine-induced disorders | CPT/HCPCS: 80048 ==

== ENCOUNTER 2020-02-19 08:19 | Day surgery (SDC) | payer SELFPAY ==
[2020-02-15 09:31] VITALS: BMI 39.5
[2020-02-19 08:38] VITALS: BP 112/83; PULSE 72; RESP 18; TEMP 36.4; O2SAT 98
--- NOTE | 2020-02-19 08:42 | P.ANESASSM_ITS ---
Pre-Anesthetic Assessment Pre-Anesthetic Assessment: Height/Weight: Height 1.68 m Weight 111.13 kg Temp Pulse Resp BP Pulse Ox 97.5 F L 72 18 112/83 98 02/19/20 08:38 02/19/20 08:38 02/19/20 08:38 02/19/20 08:38 02/19/20 08:38 Preop Diagnosis: abdominal pain Proposed Procedure: Operation Date: 02/19/20 09:15 Proposed Procedures p EGD/colon [id number] R10.11(Not Applicable) - Chong Valladares MD s Colonoscopy(Not Applicable) - Chong Valladares MD Familial anesthetic complications: Was Beta Matthew taken within 24 hours: N/A Last intake: Intake Last Liquid Date 02/18/20 Last Liquid Time 17:00 Last Solid Date 02/18/20 Last Solid Time 15:00 Social: Social History: Tobacco and No alcohol Packs per day: 1ppd Exam: Pre-Anes Outpt Exam: alert, oriented x 3, clear to auscultation bilaterally and regular rate & rhythm Airway: Submandibular: WNL Cervical ROM: WNL MP: 1 Dentition: Full Pulmonary: Pulmonary: Asthma and Sleep apnea CV/HEM: CV/HEM: Arrythmia and HTN : : None reported Hepatic: Hepatic: None reported GI: GI: GERD ( mostly controlled ) Metabolic: Metabolic: Morbid obesity Musc/skel: Musc/skel: Lower Back Pain Neuropsych: Neuropsych: None reported Anesthetic Plan: ASA status: 3 Anesthesia: MAC Risk of > 500 ml blood loss (7ml/kg in children): No PFSH Anesthesia PFSH: Medical History (Updated 02/18/20 @ 13:20 by Alexandre Lau MD) GERD (gastroesophageal reflux disease) -on PPI History of anemia Hypertension Morbid obesity Nicotine dependence, cigarettes, with unspecified nicotine-induced disorders PTSD (post-traumatic stress disorder) Surgical History History of hysterectomy (01/03/20) LAVH with bilateral salpingectomy. Dx: Uterine fibroids, Menorrhagia. Performed by Dr Lau at [facility] [place]. S/P cholecystectomy (~2014) laparoscopic S/P dilatation and curettage (~1996) Tubal ligation status (~2009) Scope - falope ring Family History Grandmother Diabetes maternal great Lung cancer maternal Family/Other Diabetes maternal great uncle, cousin Mother Hypertension Stroke Other Cancer Social History Smoking and tobacco status: current every day smoker cigarettes Packs smoked per day: 1 Alcohol intake: former Substance/Drug Use: never History of recent travel: No Female Reproductive History: Date of last menstrual period: 12/31/19 Para: 1 Spontaneous abortions: No Data Anesthesia Cardiac Studies: No Data to Display
[2020-02-19] MEDS: sodium chloride 0.9% 1,000 ML 30 ML IV (08:45)
--- NOTE | 2020-02-19 09:12 | W.PM.OPSUD ---
Surgery/Procedure H&P Update DATE OF PROCEDURE: February 19, 2020 DATE H&P PERFORMED: 02/13/20 PREOP DIAGNOSIS: abdominal pain PLANNED PROCEDURE: Operation Date: 02/19/20 09:15 Proposed Procedures p EGD/colon [id number] R10.11(Not Applicable) - Chong Valladares MD s Colonoscopy(Not Applicable) - Chong Valladares MD
[2020-02-19 09:35] VITALS: BP 119/80; PULSE 68; RESP 16; TEMP 36.1; O2SAT 95
--- NOTE | 2020-02-19 09:38 | ANE.PACU2 ---
Inpatient post-anesthesia follow up: Airway intact: Yes Vital signs: Temperature 97 F Pulse Rate 68 Respiratory Rate 16 Blood Pressure 119/80 Pulse Oximetry 95 Oxygen Delivery Me thod Room Air Oxygen Flow Rate 2 Fraction of Inspir ed Oxygen Hydration adequate: Yes Nausea and vomiting: No Pain level: 1 Mental status: Baseline
[2020-02-19 09:53] VITALS: BP 154/97; PULSE 64; RESP 18; O2SAT 99
[2020-02-20 06:00] LABS: H. Pylori / CLO Test Negative
== END 2020-02-19 10:01 | disposition home or self-care (01) ==
PROVIDERS: PCP Family Medicine; Visit Provider Internal Medicine
PROC: 0DJ08ZZ Inspection of Upper Intestinal Tract, Via Natural or Artificial Opening Endoscopic (ICD-10-PCS; CPT 43235; principal; 2020-02-19 09:15)
PROC: 0DJD8ZZ Inspection of Lower Intestinal Tract, Via Natural or Artificial Opening Endoscopic (ICD-10-PCS; CPT 45378; 2020-02-19 09:15)
DX: R10.11 Right upper quadrant pain (principal); R11.2 Nausea with vomiting, unspecified; K29.70 Gastritis, unspecified, without bleeding; K29.80 Duodenitis without bleeding; F17.210 Nicotine dependence, cigarettes, uncomplicated; J45.909 Unspecified asthma, uncomplicated; G47.30 Sleep apnea, unspecified; I10 Essential (primary) hypertension; K21.9 Gastro-esophageal reflux disease without esophagitis; E66.01 Morbid (severe) obesity due to excess calories; Z68.39 Body mass index [BMI] 39.0-39.9, adult
CPT/HCPCS: 12345; 43239; 45378; 87077; J2704; J7030